=== PATIENT | female | born 1945 | race Caucasian/White ===

== ENCOUNTER → 2023-12-01 08:38 | Outpatient (REF) | payer MEDICARE, OTHER, SELFPAY ==
[2023-12-01 09:25] LABS: % Basophils 0.3 % (0-2); % Eosinophils 0.5 % (0-6); % Immature Granulocytes 0.8 % (0-0.5); % Lymphocytes 17.9 % (20.5-51.1); % Monocytes 5.6 % (1.7-9.3); % Neutrophils 74.9 % (42.2-75.2); Absolute Immature Granulocytes 0.1 10^3/uL (0-0.05); Absolute Lymphocytes 1.4 10^3/uL (1.2-3.4); Absolute Monocytes 0.4 10^3/uL (0.1-0.6); Absolute Neutrophils 5.9 10^3/uL (1.4-6.5); Hematocrit 47.2 % (37.0-47.0); Hemoglobin 15.5 g/dL (12.0-16.0); Mean Corp Hgb Conc. 32.8 g/dL (33.0-37.0); Mean Corpuscular Volume 97.3 fL (81.0-99.0); Nucleated Red Blood Cells % 0 %; Platelet Count 299 10^3/uL (130-400); Red Blood Cell Count 4.85 10^6/uL (4.20-5.40); Red Cell Dist. Width 12.5 % (11.5-14.5); White Blood Cell Count 7.8 10^3/uL (4.8-10.8)
[2023-12-01 10:35] LABS: Blood Urea Nitrogen 12 mg/dl (7-17); Calcium 10.2 mg/dl (8.4-10.2); Carbon Dioxide 26 mmol/L (22-30); Chloride 110 mmol/L (98-107); Glucose 112 mg/dl (70-99); Potassium 4.6 mmol/L (3.5-5.1); Sodium 143 mmol/L (135-145); eGFR > 60.00
== END ==
LOC: REG 08:38
PROVIDERS: ATTENDING PHYSICIAN Internal Medicine Rheumatology; FAMILY PHYSICIAN Internal Medicine
DX: M81.0 Age-related osteoporosis without current pathological fracture (principal); Z51.81 Encounter for therapeutic drug level monitoring
CPT/HCPCS: 36415; 80048; 85025

== ENCOUNTER 2023-12-20 18:36 | Inpatient (IN) | payer MEDICARE, OTHER, SELFPAY ==
[2023-12-20] VITALS (20 sets, daily range): BP systolic 84–138; BP diastolic 32–92; BMI 28.0; BMI 27.2
[2023-12-20 12:23] LABS: % Basophils 0.3 % (0-2); % Eosinophils 0.3 % (0-6); % Immature Granulocytes 0.9 % (0-0.5); % Lymphocytes 6.9 % (20.5-51.1); % Monocytes 7.6 % (1.7-9.3); Absolute Basophils 0.1 10^3/uL (0-0.2); Absolute Eosinophils 0.1 10^3/uL (0-0.7); Absolute Immature Granulocytes 0.1 10^3/uL (0-0.05); Absolute Monocytes 1.2 10^3/uL (0.1-0.6); Absolute Neutrophils 12.7 10^3/uL (1.4-6.5); Hematocrit 38.6 % (37.0-47.0); Hemoglobin 13.4 g/dL (12.0-16.0); Mean Corp Hgb Conc. 34.7 g/dL (33.0-37.0); Mean Corpuscular Hgb 32.1 pg (27.0-31.0); Mean Corpuscular Volume 92.3 fL (81.0-99.0); Mean Platelet Volume 10.1 fL (7.4-10.4); Nucleated Red Blood Cells % 0 %; Platelet Count 236 10^3/uL (130-400); Red Blood Cell Count 4.18 10^6/uL (4.20-5.40); Red Cell Dist. Width 12.8 % (11.5-14.5); White Blood Cell Count 15.2 10^3/uL (4.8-10.8)
[2023-12-20 12:38] LABS: ALT (SGPT) 92 U/L (0-35); AST (SGOT) 60 U/L (14-36); Albumin 3.1 g/dl (3.5-5.0); Alkaline Phosphatase 174 U/L (38-126); Blood Urea Nitrogen 27 mg/dl (7-17); Calcium 8.5 mg/dl (8.4-10.2); Carbon Dioxide 22 mmol/L (22-30); Chloride 102 mmol/L (98-107); Estimated Creatinine Clearance 43 ml/min; Glucose 118 mg/dl (70-99); Lipase 82 U/L (23-300); Potassium 3.4 mmol/L (3.5-5.1); Sodium 131 mmol/L (135-145); Total Bilirubin 0.8 mg/dl (0.2-1.3); Total Protein 5.8 g/dl (6.3-8.2); eGFR 52.08
[2023-12-20] MEDS: NSS 1000 IV ×3 (12:44→20:39)
[2023-12-20 14:13] LABS: Lactic Acid 0.5 mmol/L (0.7-2.0)
--- NOTE | 2023-12-20 15:11 | ED.GENMED ---
History of Present Illness
General
Chief Complaint: Abdominal Symptoms
Source: patient
Exam Limitations: none
Time Seen by Provider: 12/20/23 12:11
Nursing documentation reviewed up to this point in time: agreed with
Travel History
Have you had any contact with someone who has COVID-19?: No
Do you have any symptoms of coronavirus? Fever > 100 degrees, chills, cough, shortness of breath, sore throat, loss of taste or smell, muscle aches, or headache?: No
History of Present Illness
History of Present Illness:
pt i a 78 y/o F
has hd some issues with intermittent chronic diarrhea
about 2 mo ago had abx for sinus infetion
says she had some mild diarrhea then off and on, where she would have fatigue and a week r so of looser stool and nausea and recover
4 days ago she got worse with n/v/d
has had about 4-5 episodes larger volume nonbloody diarrhea and a few vomiting, last vomiting yesterday
severe nausea
no abd pain, fever
feeling very weak, sleeping a lot
no bloody vomit
pt has been confused, foggy, and very globally weak
Past History
Past History
ED Past Medical History: HTN
ED Past Surgical History: Appendectomy, , Orthopedic (Shoulder surgery), Tonsilectomy and Other (Cataract surgery)
Social History
Personal:
Living: with family
Employment: Employed
Review of Systems
Review of Systems
Allergies reviewed?: Yes
All Other Systems: Not applicable
Phy Exam
Physical Exam
Physical Exam:
GENERAL: Alert , in no apparent distress, seems a little cloudy
EYE: pupils equal and reactive
NECK: Supple
ENT: o/p clr, DRY MUCUS MEMBRANES
CARDIAC: Regular rate and rhythm .
LUNGS: Clear breath sounds bilaterally, no acute respiratory distress, no wheezes/rales/rhonchi
ABDOMEN: Soft, MILDLY DISTENDED UPPER ABD, NONTENDER no r/g, no cvat, normal bowel sounds
NEUROLOGICAL: Alert and oriented, no focal neuro deficits, mildly cloudy/foggy
SKIN: Warm and dry, skin intact.
MUSCULOSKELETAL: No edema, well perfused.
PSYCH: Normal and appropriate interaction.
Course
Orders/Labs/Results
Orders:
Orders
12/20/23 12:09
Complete Blood Count/With Diff Urgent
Comprehensive Metabolic Panel Urgent
Lipase Urgent
Magnesium Urgent
Comment: ADD ON
12/20/23 12:41
CT Abd/Pel (IV only)-DH only Urgent
Comment:
Reason For Exam: diarrhea, severe weakness
12/20/23 12:44
0.9% Sodium Chloride 1000 ml [Nss] 1,000 ml IV BOLUS
12/20/23 12:53
STOOL [C difficile Antigen & Toxins] Urgent
KAYLYN Source: Feces/Stool
Specimen Description:
Stool Culture Urgent
KAYLYN Source: Feces/Stool
Specimen Description:
12/20/23 12:54
0.9% Sodium Chloride 1000 ml [Nss] 1,000 ml IV BOLUS
12/20/23 12:55
Add On- LAB Urgent
Tests Added?: mmagnesium
12/20/23 13:42
Lactic Acid Q4H
Comment: CANCEL 2nd LACTIC ACID IF 1st LACTIC ACID IS LESS THAN 2
12/20/23 17:00
Lactic Acid Q4H
Comment: CANCEL 2nd LACTIC ACID IF 1st LACTIC ACID IS LESS THAN 2
12/20/23 17:21
Urinalysis Reflex To Culture Urgent
Date Specimen was Collected: 12/20/23
Time Specimen was Collected: 17:21
12/20/23 17:30
Potassium Chloride [KCl] 20 meq PO NOW STA
Abnormal Lab Results
12/20/23 12/20/23
12:09 13:42
WBC 15.2 H 10^3/uL
(4.8-10.8)
RBC 4.18 L 10^6/uL
(4.20-5.40)
MCH 32.1 H pg
(27.0-31.0)
Abs Immat Gran (auto) 0.1 H 10^3/uL
(0-0.05)
Absolute Neuts (auto) 12.7 H 10^3/uL
(1.4-6.5)
Absolute Lymphs (auto) 1.0 L 10^3/uL
(1.2-3.4)
Absolute Monos (auto) 1.2 H 10^3/uL
(0.1-0.6)
Immature Gran % 0.9 H %
(0-0.5)
Neutrophils % 84.0 H %
(42.2-75.2)
Lymphocytes % 6.9 L %
(20.5-51.1)
Sodium 131 L mmol/L
(135-145)
Potassium 3.4 L mmol/L
(3.5-5.1)
BUN 27 H mg/dl
(7-17)
Creatinine 1.1 H mg/dL
(0.6-1.0)
Glucose 118 H mg/dl
(70-99)
Lactic Acid 0.5 L mmol/L
(0.7-2.0)
AST 60 H U/L
(14-36)
ALT 92 H U/L
(0-35)
Alkaline Phosphatase 174 H U/L
(38-126)
Total Protein 5.8 L g/dl
(6.3-8.2)
Albumin 3.1 L g/dl
(3.5-5.0)
12/20/23 12:09
12/20/23 12:09
Vital Signs
Initial and Last Documented VS:
Initial Vital Signs
Temp Pulse Resp BP Pulse Ox
97.6 F 95 16 92/61 95
12/20/23 11:32 12/20/23 11:32 12/20/23 11:32 12/20/23 11:32 12/20/23 11:32
Last Documented Vital Signs
Temp Pulse Resp BP Pulse Ox
97.6 F 91 20 113/63 97
12/20/23 11:32 12/20/23 16:18 12/20/23 16:18 12/20/23 16:18 12/20/23 15:45
MDM/Problems Addressed
Differential Diagnosis Includes:
gastroetneritis, c diff, dehydration, sepsis
MDM/Problems Addressed:
cherelle thakur 78 y/o F with h/o htn, remote nic[place]; had abx 2 mo ago and has had episodes of nausea/diarrhea lasting a week or so and then resolving; never saw anyone for it; started n/v/d 3-4 days ago, watery diarrhea, severe nausea, sleeping all day;
very dry and hypotensive on arrival bp 80s, improved to 100s with 2 L, lactate normal, wbc 15 with shift, elevated lfts, ct shows possibly renal masses vs. pyelo (getting urine now but no urine symptoms) and also possible cbd diltation; with her gi
sxs and elevated lfts, should have gi consult, maybe MRCP and ivf overnight;
*Critical Care Note
Total Time (30-74mins, 75-104mins- exclusive of procedures): Not Applicable
ED Attending Note
-
Portions of this chart may have been created with voice recognition software.� Occasional wrong word or��sound alike� substitutions may have occurred due to the inherent limitations of voice recognition software.
Discharge Plan
Departure
Patient Disposition: Admit
Date of Disposition: 12/20/23
Time of Disposition: 17:10
Admit to: Med/Surg
Presentation/result/management discussed w/ accepting MD/DO: Hospitalist
Condition: Fair
Covid-19: Not Applicable
Discharge Problem:
Gastroenteritis, Dehydration
Prescriptions:
No Action
cyanocobalamin (vitamin B-12) 1,000 mcg Tablet
1,000 mcg PO DAILY
acetaminophen [Tylenol Extra Strength] 500 mg Tablet
1,000 mg PO QIDPRN PRN (Reason: mild pain)
calcium carbonate [Calcium 500] 500 mg calcium (1,250 mg) Tablet
500 mg PO DAILY
nabumetone 500 mg Tablet
500 mg PO BIDPRN PRN (Reason: mild pain)
duloxetine [Cymbalta] 60 mg Capsule,Delayed Release(Dr/Ec)
60 mg PO HS
amlodipine-benazepril 5-40 mg Capsule
1 cap PO HS
cholecalciferol (vitamin D3) [Vitamin D3] 25 mcg (1,000 unit) Tablet
25 mcg PO QPM
Referrals:
Edvin Pitts MD [Family Provider] -
Interventions
Interventions:
*Risk Screen - Suicide Last Done: 12/20/23 12:21
*General Assessment Last Done: 12/20/23 12:21
*Neglect/Abuse Screening Last Done: 12/20/23 12:21
ED- Fall Risk Assessment Last Done: 12/20/23 12:22
*ED COVID-19 Vaccine History Last Done: 12/20/23 12:21
KL-Tzaajl-Tlcyddsvlt Assessment Last Done: 12/20/23 12:22
Discharge Date and Time
Print Language: TURKMEN
[2023-12-20 15:55] LABS: Magnesium 1.9 mg/dl (1.6-2.3)
[2023-12-20 17:36] LABS: Urine Albumin Negative (Neg - Trace); Urine Bilirubin Negative (Negative); Urine Character Clear (Clear); Urine Color Straw; Urine Glucose Negative (Negative); Urine Ketone Negative (Negative); Urine Leukocyte 2+ (Negative); Urine Nitrite Negative (Negative); Urine Occult Blood Negative (Negative); Urine Specific Gravity 1.005 (<1.030); Urine Urobilinogen Negative (Neg - 1+); Urine pH 6.5 (5.0-9.0)
[2023-12-20] MEDS: KCL 20 MEQ PO (17:37)
--- NOTE | 2023-12-20 17:40 | HPS.HSE ---
Family Physician
-
Family Physician: Marc Ptits
Chief Complaint
-
Nausea vomiting diarrhea
History of Present Illness
HPI: 78 y/o F PMH HTN, p/w N/V/D which appear to be acute on subacute.
Patient stated that she has chronic soft stool, but first experienced explosive diarrhea about one months ago. She had just recovered from was sounded like an URI at that time and she did receive antibiotic (for sinus infection) back then.
She returned to baseline, but then experienced nausea, vomiting and now again with watery diarrhea about 4 to 5 days ago.
She also complained of extreme fatigue and weakness.
She denies to fever, abdominal pain, change urination/dysuria/urinary frequency, chest pain, shortness of breath etc.
Medical History
Past Medical History
Past Medical History: Reports HTN
Additional Past Medical History:
Fibromyalgia
Left perforated eardrum status post plasma patch repair
Past Surgical History: Reports Cholecystectomy and Other
Additional Past Surgical History:
Left perforated eardrum status post plasma patch repair
Social History
Tobacco: Non-smoker
Alcohol: None
Personal:
Living: With Family
Family History
Family History: Not pertinent
Allergies / Home Medications
Allergies reflects when Allergies were last updated in [facility].
Home Medications with original date entered in [facility]
Allergy/Medication List:
Allergies
Allergy/AdvReac Type Severity Reaction Status Date / Time
alendronate sodium Allergy debilitating Verified 12/20/23 11:37
[From Fosamax] joint pain
oxycodone [Oxycodone] Allergy Pt states Verified 12/20/23 11:37
if taken
with
antiemetic
she is
able to
tolerate.
Home Medications
acetaminophen 500 mg tablet (Tylenol Extra Strength) 1,000 mg PO QIDPRN PRN mild pain 12/20/23
amlodipine 5 mg-benazepril 40 mg capsule 1 cap PO HS 12/20/23
calcium carbonate 500 mg PO DAILY 12/20/23
cholecalciferol (vitamin D3) 25 mcg (1,000 unit) tablet (Vitamin D3) 25 mcg PO QPM 12/20/23
cyanocobalamin (vitamin B-12) 1,000 mcg tablet 1,000 mcg PO DAILY 12/20/23
duloxetine 60 mg capsule,delayed release (Cymbalta) 60 mg PO HS 12/20/23
nabumetone 500 mg tablet 500 mg PO BIDPRN PRN mild pain 12/20/23
Review of Systems
-
Abdomen/GI: Reports See HPI, Nausea, Vomiting and Diarrhea; Denies Abdominal Pain
: Denies Dysuria, Frequency or Flank Pain
Physical Exam
Vital Signs
Vital Signs
Temp Pulse Resp BP Pulse Ox
36.4 C 91 20 113/63 97
12/20/23 11:32 12/20/23 16:18 12/20/23 16:18 12/20/23 16:18 12/20/23 15:45
Physical Exam
General: Well Developed, Well Nourished, No Apparent Distress, Comfortable and Conversant
HEENT: NormoCephalic, Moist mucous membranes and Atraumatic
Respiratory: Clear and Non Labored Respirations; No Accessory Resp Muscle Use
Cardiac: S1/S2 and Regular Rhythm; No Murmur or Rub
GI: Soft, Non Tender, Non Distended and Normal Bowel Sounds; No Organomegaly
Rectal: Deferred by Provider
Musculoskeletal: No Clubbing, No Cyanosis and No Edema
Skin: No Rash
Neuro: Awake
Psych: Calm and Intact Judgment/Insight
Laboratory Results
-
12/20/23 12:09
12/20/23 12:09
Laboratory Results
Lactic Acid 0.5 mmol/L (0.7-2.0) L 12/20/23 13:42
Total Bilirubin 0.8 mg/dl (0.2-1.3) 12/20/23 12:09
AST 60 U/L (14-36) H 12/20/23 12:09
ALT 92 U/L (0-35) H 12/20/23 12:09
Alkaline Phosphatase 174 U/L (38-126) H 12/20/23 12:09
Lipase 82 U/L (23-300) 12/20/23 12:09
Data Reviewed
-
CT Scan: Report Reviewed by me, Discussed with Patient and Discussed with Family
Lab Data: Labs Reviewed by me
Impression/Plan
-
HPI: 78 y/o F PMH HTN, p/w N/V/D which appear to be acute on subacute.
Patient stated that she has chronic soft stool, but first experienced explosive diarrhea about one months ago. She had just recovered from was sounded like an URI at that time and she did receive antibiotic (for sinus infection) back then.
She returned to baseline, but then experienced nausea, vomiting and now again with watery diarrhea about 4 to 5 days ago.
She also complained of extreme fatigue and weakness.
She denies to fever, abdominal pain, change urination/dysuria/urinary frequency, chest pain, shortness of breath etc.
CT AP:
Multiple bilateral low-attenuation renal masses. Multifocal pyelonephritis is felt unlikely, though not entirely excluded especially if there were symptoms and clinical findings of urinary tract infection. Otherwise, consider multiple, bilateral
renal cell carcinomas, and follow-up MRI characterization if indicated.
No obstructive uropathy.
No adenopathy.
Prior cholecystectomy. Distention of the common hepatic duct and intrahepatic bile ducts with normal caliber common bile duct. Recommend correlation with liver function tests. If indicated, further evaluation/follow-up MRCP may be considered.
Minor sigmoid diverticulosis without acute diverticulitis.
A/P:
# acute to subacute diarrhea, watery in nature; suspect due to acute viral gastroenteritis
Antibiotic exposure was 2 months ago for sinus infection, felt less likely to be related to antibiotic
Check stool culture, C. difficile, norovirus
Check blood culture
Hold antibiotic for now
Zofran as needed for nausea
# Prerenal OSCAR with clinical dehydration
# Hypotension present on admission due to above
Received 2 L NSS, BP and MS improved
Continue maintenance IV fluid
Trend serum creatinine, 1.1 on admission, baseline at 0.6
# Transaminitis, suspect reactive
Continue to monitor LFT
# Bilateral renal masses noted on CT abdomen pelvis, incidental finding
UA sent, follow-up
[place] less likely due to UTI given patient denies to any urinary symptoms and no flank pain
Recommend urology outpatient follow-up and eval
# Distention of common hepatic duct and intrahepatic bile duct with normal common bile duct
Trend LFT as stated above
Could consider GI outpatient
DVT prophylaxis: Heparin subcu
Full code
[2023-12-20 17:49] LABS: Urine Bacteria Moderate (Negative); Urine Red Blood Cell 0-2 /HPF (0-2); Urine Urothelial Cell 0-2 /LPF (FEW); Urine White Cell 26-30 /HPF (0-5)
--- NOTE | 2023-12-20 19:30 | PTCARENOTE ---
Received pt from ED stretcher. Pt ambulated to bed independently. Spouse at bedside. AAOx3. Pt complained of 2/10 chronic neck and shoulder pain, scheduled pain medication provided, see MAR. Pt informed this RN she has fallen in the past 3 months,
pt stated 'I tripped and kneeled down onto my left knee two weeks ago'. Pt instructed to ring when need to ambulate to bathroom. Pt rings appropriately. Assessed and oriented to room. Pt verbalized understanding of call gregory. Call gregory within close
reach. Will continue to monitor.
[2023-12-20 20:22] LABS: Lactic Acid 1.7 mmol/L (0.7-2.0)
[2023-12-20] MEDS: HEPARIN 5000 UNITS SC (20:41)
[2023-12-20] MEDS: TYLENOL 650 MG PO (20:42)
[2023-12-20] MEDS: CYMBALTA DELAYED RELEASE 60 MG PO (22:02)
[2023-12-20] MEDS: TYLENOL PO (23:17)
[2023-12-21] MEDS: TYLENOL 650 MG PO ×4 (04:36→23:44)
[2023-12-21 06:22] LABS: % Basophils 0.2 % (0-2); % Eosinophils 0.3 % (0-6); % Immature Granulocytes 0.9 % (0-0.5); % Lymphocytes 7.4 % (20.5-51.1); % Monocytes 7.5 % (1.7-9.3); % Neutrophils 83.7 % (42.2-75.2); Absolute Immature Granulocytes 0.1 10^3/uL (0-0.05); Absolute Lymphocytes 0.9 10^3/uL (1.2-3.4); Absolute Monocytes 0.9 10^3/uL (0.1-0.6); Absolute Neutrophils 10.6 10^3/uL (1.4-6.5); Hematocrit 35.6 % (37.0-47.0); Mean Corp Hgb Conc. 33.7 g/dL (33.0-37.0); Mean Corpuscular Hgb 32.3 pg (27.0-31.0); Mean Platelet Volume 10.3 fL (7.4-10.4); Nucleated Red Blood Cells % 0 %; Platelet Count 225 10^3/uL (130-400); Red Blood Cell Count 3.71 10^6/uL (4.20-5.40); Red Cell Dist. Width 12.9 % (11.5-14.5); White Blood Cell Count 12.6 10^3/uL (4.8-10.8)
[2023-12-21 07:00] VITALS: BP 110/56
[2023-12-21 07:03] LABS: ALT (SGPT) 62 U/L (0-35); AST (SGOT) 43 U/L (14-36); Albumin 2.6 g/dl (3.5-5.0); Alkaline Phosphatase 162 U/L (38-126); Blood Urea Nitrogen 16 mg/dl (7-17); Calcium 8.5 mg/dl (8.4-10.2); Carbon Dioxide 21 mmol/L (22-30); Chloride 113 mmol/L (98-107); Estimated Creatinine Clearance 54 ml/min; Glucose 118 mg/dl (70-99); Magnesium 2.1 mg/dl (1.6-2.3); Potassium 3.8 mmol/L (3.5-5.1); Sodium 142 mmol/L (135-145); Total Bilirubin 0.4 mg/dl (0.2-1.3); eGFR > 60.00
[2023-12-21] MEDS: HEPARIN 5000 UNITS SC ×2 (08:44→20:51)
[2023-12-21] MEDS: TYLENOL PO ×2 (08:45→14:23)
[2023-12-21] MEDS: NSS 1000 IV (08:47)
--- NOTE | 2023-12-21 11:08 | W.PN.HOSP.TC ---
Today's Communication/Plan
-
see A/P
Assessment / Plan
Assessment / Plan
HPI: 78 y/o F PMH HTN, p/w N/V/D which appear to be acute on subacute.
Patient stated that she has chronic soft stool, but first experienced explosive diarrhea about one months ago. She had just recovered from was sounded like an URI at that time and she did receive antibiotic (for sinus infection) back then.
She returned to baseline, but then experienced nausea, vomiting and now again with watery diarrhea about 4 to 5 days ago.
She also complained of extreme fatigue and weakness.
She denies to fever, abdominal pain, change urination/dysuria/urinary frequency, chest pain, shortness of breath etc.
CT AP:
Multiple bilateral low-attenuation renal masses. Multifocal pyelonephritis is felt unlikely, though not entirely excluded especially if there were symptoms and clinical findings of urinary tract infection. Otherwise, consider multiple, bilateral
renal cell carcinomas, and follow-up MRI characterization if indicated.
No obstructive uropathy.
No adenopathy.
Prior cholecystectomy. Distention of the common hepatic duct and intrahepatic bile ducts with normal caliber common bile duct. Recommend correlation with liver function tests. If indicated, further evaluation/follow-up MRCP may be considered.
Minor sigmoid diverticulosis without acute diverticulitis.
A/P:
# acute to subacute diarrhea, watery in nature; suspect due to acute viral gastroenteritis
Antibiotic exposure was 2 months ago for sinus infection, felt less likely to be related to antibiotic
Follow stool culture, C. difficile
norovirus is negative
Follow blood culture
Hold antibiotic for now
Zofran as needed for nausea
# Prerenal OSCAR with clinical dehydration, resolved
# Hypotension present on admission due to above, resolved
s/p IVF boluses, observe off additional maintenance IVF
# Transaminitis, suspect reactive, improving
Continue to monitor LFT
# Asymptomatic bacteruria
pt denies to urinary symptoms
Follow urine Cx that was sent from ED
Would hold Abx for now
# Bilateral renal masses noted on CT abdomen pelvis, incidental finding
[place] less likely due to UTI given patient denies to any urinary symptoms and no flank pain
Recommend urology outpatient follow-up and renata cruz has been informed of this
# Distention of common hepatic duct and intrahepatic bile duct with normal common bile duct
Trend LFT as stated above
Could consider GI outpatient
DVT prophylaxis: Heparin subcu
Full code
DW at bedside
Anticipated Discharge: 24 - 48 hours
Subjective/Interval History
-
Date of Service: December 21, 2023
Objective Data
-
Labs:
Laboratory Results
12/21/23
05:47
WBC 12.6 H
Hgb 12.0
Hct 35.6 L
Plt Count 225
Sodium 142 D
Potassium 3.8
Chloride 113 H
Carbon Dioxide 21 L
BUN 16
Creatinine 0.9
Glucose 118 H
Calcium 8.5
Total Bilirubin 0.4
AST 43 H
ALT 62 H
Alkaline Phosphatase 162 H
Vital Signs:
Vital Signs
Temp Pulse Resp BP Pulse Ox
36.6 C 89 16 110/56 98
12/21/23 07:00 12/21/23 07:00 12/21/23 07:00 12/21/23 07:00 12/21/23 07:00
I&O
12/20/23 12/21/23 12/22/23
06:59 06:59 06:59
Intake Total 1200 / 1200
Balance 1200 / 1200
Review of Systems
-
Abdomen/GI: Reports Diarrhea (seem to have improved )
Physical Exam
-
General: Well Developed, Well Nourished, No Apparent Distress, Comfortable and Conversant; Negative Respiratory Distress
HEENT: Normocephalic, Atraumatic, Nose Appears Normal and Ears Appear Normal; Negative Oxygen
Respiratory: Clear to Auscultation and Non Labored Respirations; Negative Accessory Resp Muscle Use
Cardiac: Regular Rhythm and S1/S2
GI: Soft, Nontender, Nondistended and Normal Bowel Sounds
Skin: Warm and Dry
Neuro: Awake and Alert
Psych: Calm and Intact Judgement/Insight
Data Reviewed
-
CT Scan: Report Reviewed by me
Labs: Labs Reviewed by me
--- NOTE | 2023-12-21 12:23 | CM ---
Met with pt and her at bedside
pt lives with her in a 2 story home
Describes self as independent. assists around home
Has ride at d/c
DME - cane, CPAP
SNF/HH - no past hx
PCP - Dr Marc Higgins
Pharm - [facility]
Plan - anticipate home no needs vs with VN
[2023-12-21 15:00] VITALS: BP 148/83
[2023-12-21] MEDS: STERILE WATER FOR INJECTION 10 ML IV (20:53)
[2023-12-21] MEDS: ROCEPHIN 1000 MG IV (20:54)
[2023-12-21] MEDS: FLUSH (NSS) 2 FLUSH IV (20:55)
[2023-12-21] MEDS: CYMBALTA DELAYED RELEASE 60 MG PO (20:56)
[2023-12-21 23:00] VITALS: BP 107/72
[2023-12-22] MEDS: TYLENOL PO (04:00)
[2023-12-22 07:00] VITALS: BP 126/65
[2023-12-22 08:24] LABS: % Basophils 0.4 % (0-2); % Eosinophils 0.7 % (0-6); % Immature Granulocytes 0.9 % (0-0.5); % Lymphocytes 10.9 % (20.5-51.1); % Monocytes 7.2 % (1.7-9.3); % Neutrophils 79.9 % (42.2-75.2); Absolute Eosinophils 0.1 10^3/uL (0-0.7); Absolute Immature Granulocytes 0.1 10^3/uL (0-0.05); Absolute Lymphocytes 1.2 10^3/uL (1.2-3.4); Absolute Monocytes 0.8 10^3/uL (0.1-0.6); Absolute Neutrophils 8.8 10^3/uL (1.4-6.5); Hematocrit 39.6 % (37.0-47.0); Hemoglobin 13.2 g/dL (12.0-16.0); Mean Corp Hgb Conc. 33.3 g/dL (33.0-37.0); Mean Corpuscular Hgb 32.1 pg (27.0-31.0); Mean Corpuscular Volume 96.4 fL (81.0-99.0); Mean Platelet Volume 10.1 fL (7.4-10.4); Nucleated Red Blood Cells % 0 %; Platelet Count 248 10^3/uL (130-400); Red Blood Cell Count 4.11 10^6/uL (4.20-5.40); Red Cell Dist. Width 13.1 % (11.5-14.5)
[2023-12-22] MEDS: HEPARIN 5000 UNITS SC (08:53)
[2023-12-22] MEDS: TYLENOL 650 MG PO ×4 (08:58→21:02)
[2023-12-22 09:16] LABS: ALT (SGPT) 70 U/L (0-35); AST (SGOT) 39 U/L (14-36); Alkaline Phosphatase 171 U/L (38-126); Blood Urea Nitrogen 8 mg/dl (7-17); Carbon Dioxide 25 mmol/L (22-30); Chloride 109 mmol/L (98-107); Estimated Creatinine Clearance 69 ml/min; Glucose 108 mg/dl (70-99); Magnesium 1.8 mg/dl (1.6-2.3); Potassium 3.5 mmol/L (3.5-5.1); Sodium 142 mmol/L (135-145); Total Bilirubin 0.3 mg/dl (0.2-1.3); Total Protein 5.6 g/dl (6.3-8.2); eGFR > 60.00
--- NOTE | 2023-12-22 11:26 | W.PN.HOSP.TC ---
Today's Communication/Plan
-
see A/P
Assessment / Plan
Assessment / Plan
HPI: 78 y/o F PMH HTN, p/w N/V/D which appear to be acute on subacute.
Patient stated that she has chronic soft stool, but first experienced explosive diarrhea about one months ago. She had just recovered from was sounded like an URI at that time and she did receive antibiotic (for sinus infection) back then.
She returned to baseline, but then experienced nausea, vomiting and now again with watery diarrhea about 4 to 5 days ago.
She also complained of extreme fatigue and weakness.
She denies to fever, abdominal pain, change urination/dysuria/urinary frequency, chest pain, shortness of breath etc.
CT AP:
Multiple bilateral low-attenuation renal masses. Multifocal pyelonephritis is felt unlikely, though not entirely excluded especially if there were symptoms and clinical findings of urinary tract infection. Otherwise, consider multiple, bilateral
renal cell carcinomas, and follow-up MRI characterization if indicated.
No obstructive uropathy.
No adenopathy.
Prior cholecystectomy. Distention of the common hepatic duct and intrahepatic bile ducts with normal caliber common bile duct. Recommend correlation with liver function tests. If indicated, further evaluation/follow-up MRCP may be considered.
Minor sigmoid diverticulosis without acute diverticulitis.
A/P:
# acute to subacute diarrhea, watery in nature; suspect due to acute viral gastroenteritis
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
C. difficile neg, norovirus negative
Follow stool culture
Zofran as needed for nausea
Pt states that she is on colestipol ARCHAEOLOGIST (prescribed by GI) for diarrhea, start cholestyramine today
GI CS
# sepsis/bacteremia POA
# Possible UTI with E coli although pt denies to symptoms
blood culture from admission positive for GNR, follow blood culture until clearance
started ceftriaxone
# Prerenal OSCAR with clinical dehydration, resolved
# Hypotension present on admission due to above, resolved
s/p IVF boluses, observe off additional maintenance IVF
# Transaminitis, suspect reactive, improving
Continue to monitor LFT
# Multiple Bilateral renal masses noted on CT abdomen pelvis, incidental finding
Recommend urology outpatient follow-up and eval, pt has been informed of this
# Distention of common hepatic duct and intrahepatic bile duct with normal common bile duct
This could be related to prior cholecystectomy
Trend LFT, improving
GI eval per family request
DVT prophylaxis: lovenox SQ
Full code
DW and daughter at bedside
total time spent 51 min
Anticipated Discharge: > 48 hours
Subjective/Interval History
-
Date of Service: December 22, 2023
Objective Data
-
Labs:
Laboratory Results
12/22/23
08:00
WBC 11.0 H
Hgb 13.2
Hct 39.6
Plt Count 248
Sodium 142
Potassium 3.5
Chloride 109 H
Carbon Dioxide 25
BUN 8
Creatinine 0.7
Glucose 108 H
Calcium 9.0
Total Bilirubin 0.3
AST 39 H
ALT 70 H
Alkaline Phosphatase 171 H
Vital Signs:
Vital Signs
Temp Pulse Resp BP Pulse Ox
36.4 C 84 17 126/65 99
12/22/23 07:00 12/22/23 07:00 12/22/23 07:00 12/22/23 07:00 12/22/23 07:00
I&O
12/21/23 12/22/23 12/23/23
06:59 06:59 06:59
Intake Total 1200 / 1200 240 / 240 0 / 0
Balance 1200 / 1200 240 / 240 0 / 0
Review of Systems
-
Abdomen/GI: Reports Diarrhea (seem to have improved )
Physical Exam
-
General: Well Developed, Well Nourished, No Apparent Distress, Comfortable and Conversant; Negative Respiratory Distress
HEENT: Normocephalic, Atraumatic, Nose Appears Normal and Ears Appear Normal; Negative Oxygen
Respiratory: Clear to Auscultation and Non Labored Respirations; Negative Accessory Resp Muscle Use
Cardiac: Regular Rhythm and S1/S2
GI: Soft, Nontender, Nondistended and Normal Bowel Sounds
Skin: Warm and Dry
Neuro: Awake and Alert
Psych: Calm and Intact Judgement/Insight
Data Reviewed
-
CT Scan: Report Reviewed by me
Labs: Labs Reviewed by me
[2023-12-22 11:33] VITALS: BP 152/80; PULSE 88; O2SAT 99
[2023-12-22 11:50] VITALS: BP 152/80; PULSE 89; O2SAT 99
[2023-12-22 13:47] VITALS: BP 152/80; PULSE 89; O2SAT 99
[2023-12-22 15:00] VITALS: BP 153/79
[2023-12-22] MEDS: LOVENOX 40 MG SC (16:59)
--- NOTE | 2023-12-22 17:27 | CON.GI ---
Consultation
-
Date/Time Consultation Requested: 12/22/2023, 11:40am
Date/Time Consultation Performed: 12/22/2023, 530pm
Requesting Provider: Dr. Lopez
Performing Provider: Dr. Hernandez
Reason for Consultation: diarrhea
Medical History
Chief Complaint / HPI
Chief Complaint: diarrhea
History of Present Illness:
78 yo F with intermittent diarrhea with worsening of diarrhea with n/v found in ER to be hypotensive with leukocytosis. Found to have mild LFT abnormalities but normal bilirubin. CT done as below.
On d/w pt had n/v, fatigue, upset stomach so stopped colestipol. That is when diarrhea started - 3 loose explosive BM a day, + nocturnal BM, + incontinence, + urgency, no blood.
No recent travel or sick contacts.
Also found to have UTI + e coli and blood culture + with GNB.
Has chronic diarrhea as well follows with Dr. 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 Per patient would take 3 tabs a day with flare, 1 tab a day normally.
Had antibiotics 2 months ago for sinus infection.
CT 12/19: Multiple bilateral low-attenuation renal masses. Multifocal pyelonephritis is felt unlikely, though not entirely excluded especially if there were symptoms and clinical findings of urinary tract infection. Otherwise, consider multiple,
bilateral renal cell carcinomas, and follow-up MRI characterization if indicated.
No obstructive uropathy.
No adenopathy.
Prior cholecystectomy. Distention of the common hepatic duct and intrahepatic bile ducts with normal caliber common bile duct. Recommend correlation with liver function tests. If indicated, further evaluation/follow-up MRCP may be considered.
Minor sigmoid diverticulosis without acute diverticulitis.
Colonoscopy 2018 Dr.Hale larios in sigmoid otherwise normal no biopsies taken.
Past Medical History
Past Medical History: HTN
Past Surgical History: Appendectomy, Cholecystectomy, , Orthopedic (shoulder surgery), Tonsilectomy and Other (cataract)
Social History
Tobacco: Non-Smoker
Alcohol: None
Drug: None
Family History
Family History: Reviewed & Not Pertinent
Allergies / Home Medications
Allergy/AdvReac Type Severity Reaction Status Date / Time
alendronate sodium Allergy debilitating Verified 12/20/23 11:37
[From Fosamax] joint pain
oxycodone [Oxycodone] Allergy Pt states Verified 12/20/23 11:37
if taken
with
antiemetic
she is
able to
tolerate.
�Medication �Instructions �Recorded
acetaminophen 500 mg tablet 1,000 mg PO QIDPRN PRN mild pain 12/20/23
(Tylenol Extra Strength)
amlodipine 5 mg-benazepril 40 mg 1 cap PO HS Blood Pressure 12/20/23
capsule
calcium carbonate 500 mg PO DAILY Supplement 12/20/23
cholecalciferol (vitamin D3) 25 25 mcg PO QPM Supplement 12/20/23
mcg (1,000 unit) tablet (Vitamin
D3)
cyanocobalamin (vitamin B-12) 1,000 mcg PO DAILY Supplement 12/20/23
1,000 mcg tablet
duloxetine 60 mg capsule,delayed 60 mg PO HS Depression 12/20/23
release (Cymbalta)
nabumetone 500 mg tablet 500 mg PO BIDPRN PRN mild pain 12/20/23
Review of Systems
-
All other systems: A 12 pt ROS was Negative except as stated above in HPI
Vital Signs
Temp Pulse Resp BP Pulse Ox
97.9 F 83 18 153/79 98
12/22/23 15:00 12/22/23 15:00 12/22/23 15:00 12/22/23 15:00 12/22/23 15:00
Physical Exam
Exam
General: Well Developed
HEENT: Normocephalic
Respiratory: Clear
Cardiac: S1/S2
GI: Non Tender and Non Distended
Musculoskeletal: No Clubbing
Skin: Warm
Neuro: AO x 3
Psych: Calm
Results
WBC 11.0 10^3/uL (4.8-10.8) H 12/22/23 08:00
Hgb 13.2 g/dL (12.0-16.0) 12/22/23 08:00
Hct 39.6 % (37.0-47.0) 12/22/23 08:00
MCV 96.4 fL (81.0-99.0) 12/22/23 08:00
Plt Count 248 10^3/uL (130-400) 12/22/23 08:00
Absolute Neuts (auto) 8.8 10^3/uL (1.4-6.5) H 12/22/23 08:00
Sodium 142 mmol/L (135-145) 12/22/23 08:00
Potassium 3.5 mmol/L (3.5-5.1) 12/22/23 08:00
Chloride 109 mmol/L (98-107) H 12/22/23 08:00
Carbon Dioxide 25 mmol/L (22-30) 12/22/23 08:00
BUN 8 mg/dl (7-17) 12/22/23 08:00
Creatinine 0.7 mg/dL (0.6-1.0) 12/22/23 08:00
Calcium 9.0 mg/dl (8.4-10.2) 12/22/23 08:00
Total Bilirubin 0.3 mg/dl (0.2-1.3) 12/22/23 08:00
AST 39 U/L (14-36) H 12/22/23 08:00
ALT 70 U/L (0-35) H 12/22/23 08:00
Alkaline Phosphatase 171 U/L (38-126) H 12/22/23 08:00
Lipase 82 U/L (23-300) 12/20/23 12:09
Diagnostic Image Results:
Prior GI Procedures:
EGD:
Colonoscopy:
Assessment / Plan
-
78 yo F pmh as above here with n/v, fatigue, diarrhea.
Diarrhea either infectious in etiology or due to holding colestipol. Suspect elevated LFTs 2/2 infection. Also with UTI and + blood cultures I suspect related to UTI.
Recommendations:
- Stool studies negative for norovirus, CDI, stool culture pending
- Start questran tonight
- Abx per primary team
- I stopped all meds for constipation given diarrhea
- Distension of common hepatic duct and intrahepatic bile ducts with normal CBD - recommend outpatient MRI/MRCP vs US, bilirubin normal, no RUQ pain
- Needs outpatient MRI for renal lesions as well.
- Recommend outpatient cscope needs biopsies of colon last colon 2017 Dr. Mariano recommended repeat 5 years d/w patient today
- Repeat LFTs after acute episode see if resolves
- Will need follow up with me outpatient
-
-
Thank you for consultation and allowing me to participate in the patient's care. Please call the guest relations coordinator GI physician during the after hours with any questions or concerns.
[2023-12-22] MEDS: KCL 40 MEQ PO (17:37)
[2023-12-22] MEDS: QUESTRAN LIGHT/PREVALITE 4 GRAMS PO (18:34)
[2023-12-22] MEDS: STERILE WATER FOR INJECTION 10 ML IV (21:02)
[2023-12-22] MEDS: ROCEPHIN 1000 MG IV (21:03)
[2023-12-22] MEDS: CYMBALTA DELAYED RELEASE 60 MG PO (21:03)
[2023-12-22] MEDS: LOTREL 1 CAPSULE PO (21:03)
[2023-12-22 23:00] VITALS: BP 139/73
[2023-12-23] MEDS: TYLENOL PO ×3 (00:45→12:49)
[2023-12-23 07:00] VITALS: BP 143/56
[2023-12-23 07:25] LABS: % Basophils 0.4 % (0-2); % Eosinophils 0.8 % (0-6); % Immature Granulocytes 1.9 % (0-0.5); % Lymphocytes 12.4 % (20.5-51.1); % Monocytes 6.2 % (1.7-9.3); % Neutrophils 78.3 % (42.2-75.2); Absolute Eosinophils 0.1 10^3/uL (0-0.7); Absolute Immature Granulocytes 0.2 10^3/uL (0-0.05); Absolute Lymphocytes 1.2 10^3/uL (1.2-3.4); Absolute Monocytes 0.6 10^3/uL (0.1-0.6); Absolute Neutrophils 7.9 10^3/uL (1.4-6.5); Hematocrit 37.9 % (37.0-47.0); Hemoglobin 12.8 g/dL (12.0-16.0); Mean Corp Hgb Conc. 33.8 g/dL (33.0-37.0); Mean Corpuscular Hgb 32.3 pg (27.0-31.0); Mean Corpuscular Volume 95.7 fL (81.0-99.0); Mean Platelet Volume 10.3 fL (7.4-10.4); Nucleated Red Blood Cells % 0 %; Platelet Count 270 10^3/uL (130-400); Red Blood Cell Count 3.96 10^6/uL (4.20-5.40); Red Cell Dist. Width 12.9 % (11.5-14.5)
[2023-12-23 08:02] LABS: ALT (SGPT) 57 U/L (0-35); AST (SGOT) 25 U/L (14-36); Albumin 2.8 g/dl (3.5-5.0); Alkaline Phosphatase 159 U/L (38-126); Blood Urea Nitrogen 8 mg/dl (7-17); Carbon Dioxide 27 mmol/L (22-30); Chloride 113 mmol/L (98-107); Estimated Creatinine Clearance 69 ml/min; Glucose 105 mg/dl (70-99); Magnesium 1.7 mg/dl (1.6-2.3); Potassium 3.9 mmol/L (3.5-5.1); Sodium 144 mmol/L (135-145); Total Bilirubin 0.3 mg/dl (0.2-1.3); Total Protein 5.4 g/dl (6.3-8.2); eGFR > 60.00
[2023-12-23] MEDS: QUESTRAN LIGHT/PREVALITE 4 GRAMS PO ×2 (09:59→14:34)
[2023-12-23] MEDS: TYLENOL 650 MG PO ×2 (09:59→14:33)
--- NOTE | 2023-12-23 12:55 | W.PN.GI.CBS2 ---
Addendum entered and electronically signed by Familia Hernandez MD 12/23/23 13:48:
Dr. Lopez sent me a msg she is discharging patient today.
Recommend she goes back on colestipol (we do not have in hospital pharmacy) instead of questran.
Original Note:
Today's Communication / Plan
-
increase questran
Assessment / Plan
-
78 yo F pmh as above here with n/v, fatigue, diarrhea.
Diarrhea either infectious in etiology or due to holding colestipol. Suspect elevated LFTs 2/2 infection. Also with UTI and + blood cultures with E.coli.
Recommendations:
- Stool studies negative for norovirus, CDI, stool culture negative so far pending shiga toxin
- Reviewed low residue diet
- Increase questran to tid
- Abx per primary team
- Distension of common hepatic duct and intrahepatic bile ducts with normal CBD - recommend outpatient MRI/MRCP vs US, bilirubin normal, no RUQ pain - I sent msg to office to work on auth for this as outpatient
- Needs outpatient MRI for renal lesions as well - d/w pt daughter will reach out to PCP.
- Recommend outpatient cscope needs biopsies of colon last colon 2017 Dr. Mariano recommended repeat 5 years d/w patient previously
- Repeat LFTs after acute episode see if resolves
- Will need follow up with me outpatient
Subjective
Subjective
Date of Service: December 23, 2023
having ongoing diarrhea
Objective
Data Reviewed
Laboratory Data:
Laboratory Results
12/23/23 06:13
12/23/23 06:13
Laboratory Results
Magnesium 1.7 mg/dl (1.6-2.3) 12/23/23 06:13
Total Bilirubin 0.3 mg/dl (0.2-1.3) 12/23/23 06:13
AST 25 U/L (14-36) 12/23/23 06:13
ALT 57 U/L (0-35) H 12/23/23 06:13
Alkaline Phosphatase 159 U/L (38-126) H 12/23/23 06:13
Lipase 82 U/L (23-300) 12/20/23 12:09
Vital Signs and I&O:
Vital Signs
Temp Pulse Resp BP Pulse Ox
98.6 F 84 18 143/56 100
12/23/23 07:00 12/23/23 07:00 12/23/23 07:00 12/23/23 07:00 12/23/23 07:00
I&O
12/22/23 12/23/23 12/24/23
06:59 06:59 06:59
Intake Total 240 / 240 1140 / 1140 960 / 960
Balance 240 / 240 1140 / 1140 960 / 960
Physical Exam
Physical Exam
GI: Non Distended and Non Tender
--- NOTE | 2023-12-23 13:22 | W.PN.HOSP.TC ---
Addendum entered and electronically signed by Marylu Lopez MD 12/23/23 13:57:
d/w GI, recc colestipol 1 g BID instead of current Questran
Colestipol sent to pharmacy
DC RN
total DC time 40 min
Original Note:
Today's Communication/Plan
-
see A/P
Assessment / Plan
Assessment / Plan
HPI: 78 y/o F PMH HTN, p/w N/V/D which appear to be acute on subacute.
Patient stated that she has chronic soft stool, but first experienced explosive diarrhea about one months ago. She had just recovered from was sounded like an URI at that time and she did receive antibiotic (for sinus infection) back then.
She returned to baseline, but then experienced nausea, vomiting and now again with watery diarrhea about 4 to 5 days ago.
She also complained of extreme fatigue and weakness.
She denies to fever, abdominal pain, change urination/dysuria/urinary frequency, chest pain, shortness of breath etc.
CT AP:
Multiple bilateral low-attenuation renal masses. Multifocal pyelonephritis is felt unlikely, though not entirely excluded especially if there were symptoms and clinical findings of urinary tract infection. Otherwise, consider multiple, bilateral
renal cell carcinomas, and follow-up MRI characterization if indicated.
No obstructive uropathy.
No adenopathy.
Prior cholecystectomy. Distention of the common hepatic duct and intrahepatic bile ducts with normal caliber common bile duct. Recommend correlation with liver function tests. If indicated, further evaluation/follow-up MRCP may be considered.
Minor sigmoid diverticulosis without acute diverticulitis.
A/P:
# acute to subacute diarrhea, watery in nature; suspect due to acute viral gastroenteritis
Antibiotic exposure was 2 months ago [employer] for sinus infection, felt less likely to be related to antibiotic
C. difficile neg, norovirus negative
Stool culture Shiga toxin pending
Zofran as needed for nausea
Pt states that she is on colestipol [employer] (prescribed by GI) for diarrhea, restarted questran and increase to TID per GI
GI on board
# sepsis/bacteremia with E coli POA
# UTI with E coli although pt denies to overt urinary symptoms
blood culture and urine Cx with pansensitive E coli
repeat blood Cx is negative
Deescalate ceftriaxone to Ancef
# Prerenal OSCAR with clinical dehydration, resolved
# Hypotension present on admission, resolved
s/p IVF boluses, observe off additional maintenance IVF
# Transaminitis, suspect reactive, improving
Continue to monitor LFT
# Multiple Bilateral renal masses noted on CT abdomen pelvis, incidental finding
Now felt most likely due to multifocal pyelonephritis
Can follow up with urology outpatient
# Distention of common hepatic duct and intrahepatic bile duct with normal common bile duct
This could be related to prior cholecystectomy
Trend LFT, improving
GI on board, recommend outpatient MRI/MRCP vs US
DVT prophylaxis: lovenox SQ
Full code
DW on the phone
Anticipated Discharge: Today
Subjective/Interval History
-
Date of Service: December 23, 2023
Objective Data
-
Labs:
Laboratory Results
12/23/23
06:13
WBC 10.0
Hgb 12.8
Hct 37.9
Plt Count 270
Sodium 144
Potassium 3.9
Chloride 113 H
Carbon Dioxide 27
BUN 8
Creatinine 0.7
Glucose 105 H
Calcium 9.0
Total Bilirubin 0.3
AST 25
ALT 57 H
Alkaline Phosphatase 159 H
Vital Signs:
Vital Signs
Temp Pulse Resp BP Pulse Ox
37.0 C 84 18 143/56 100
12/23/23 07:00 12/23/23 07:00 12/23/23 07:00 12/23/23 07:00 12/23/23 07:00
I&O
12/22/23 12/23/23 12/24/23
06:59 06:59 06:59
Intake Total 240 / 240 1140 / 1140 960 / 960
Balance 240 / 240 1140 / 1140 960 / 960
Review of Systems
-
Abdomen/GI: Reports Diarrhea (improved )
Physical Exam
-
General: Well Developed, Well Nourished, No Apparent Distress, Comfortable and Conversant; Negative Respiratory Distress
HEENT: Normocephalic, Atraumatic, Nose Appears Normal and Ears Appear Normal; Negative Oxygen
Respiratory: Clear to Auscultation and Non Labored Respirations; Negative Accessory Resp Muscle Use
Cardiac: Regular Rhythm and S1/S2
GI: Soft, Nontender, Nondistended and Normal Bowel Sounds
Skin: Warm and Dry
Neuro: Awake and Alert
Psych: Calm and Intact Judgement/Insight
Data Reviewed
-
CT Scan: Report Reviewed by me
Labs: Labs Reviewed by me
--- NOTE | 2023-12-23 14:18 | W.DCSUMMARY ---
Discharge Summary
Discharge Data
Date of Admission: 12/20/23
Date of Discharge: 12/23/23
-
Pending Results: No
Hospital Course
Principal Diagnosis:
Sepsis/bacteremia on admission with pansensitive E coli
Urinary tract infection with pansensitive E. coli
Acute diarrhea may be due to sepsis on admission
Resolved prerenal acute kidney injury from dehydration
Improved transaminitis
Distention of common hepatic duct and intrahepatic bile duct with normal common bile duct
Chronic Diagnoses:�
Hypertension
Consultations:�
Gastroenterology
Procedures:�
None
Clinical course:�
This is a 78-year-old female, with past medical history as stated above, who presented with acute on subacute diarrhea.
A CT abdomen pelvis from admission was largely unrevealing, but noted multiple bilateral renal masses which could be due to multifocal pyelonephritis versus renal masses.
Problem 1:
acute to subacute diarrhea, likely related to sepsis/bacteremia on admission (see below).
Her C. difficile and norovirus were negative.
Stool culture was mostly negative, Shiga toxin was pending at the time of discharge.
She was restarted with her prior to admission colestipol to help with her diarrhea, and she was discharged with 1 g twice daily per GI recommendation.
Problem 2:
Sepsis/bacteremia on admission with pansensitive E coli.
This is in setting of urinary tract infection with pansensitive E. coli as well.
The patient received ceftriaxone during her hospital stay, and this was narrowed down to oral Keflex upon discharge.
She can continue with Keflex for 5 more days following discharge.
Problem 3:
Prerenal OSCAR with clinical dehydration, resolved with IVF.
Problem 4:
Transaminitis, suspect reactive, improved during hospital stay.
Problem 5:
Multiple Bilateral renal masses noted on CT abdomen pelvis, incidental finding.
Now felt most likely due to multifocal pyelonephritis.
The patient can follow-up with her PCP for outpatient BL kidney ultrasound evaluation.
Problem 6:
Distention of common hepatic duct and intrahepatic bile duct with normal common bile duct, incidental finding.
This could be related to her prior cholecystectomy.
GI was consulted for this, and the patient can follow-up outpatient for MRI/MRCP versus ultrasound with GI.
As for the rest of her medical problems, they were stable during her hospital stay.
Discharge Plan
-
Patient Disposition: Home (Routine Discharge)
Discharge Diagnosis/Procedures: Subacute diarrhea; resolved acute kidney injury; sepsis with bacteremia on admission due to E coli urinary tract infection; likely bilateral pyelonephritis
Condition: Fair
Diet: As tolerated
Activity: As tolerated
Driving Restrictions: As prior to admission
Others Tests: consider bilateral kidney ultrasound (to evaluate the bilateral kidney lesions- likely pyelonephritis) to be arranged by your PCP outpatient
Activity Restrictions/Additional Instructions:
Follow up with GI outpatient for outpatient MRI/MRCP vs US
Referrals:
Edvin Pitts MD [Family Provider] - in less than 1 week
Additional Discharge Medication Instructions: Continue Keflex for 5 more days
Continue Colestipol 1 mg BID
Prescriptions:
New
cephalexin 500 mg capsule
500 mg PO BID 5 Days Qty: 10 0RF
colestipol [Colestid] 1 gram tablet
1 g PO BID Qty: 60 0RF
Continued
cyanocobalamin (vitamin B-12) 1,000 mcg Tablet
1,000 mcg PO DAILY
acetaminophen [Tylenol Extra Strength] 500 mg Tablet
1,000 mg PO QIDPRN PRN (Reason: mild pain)
calcium carbonate 500 mg calcium (1,250 mg) Tablet
500 mg PO DAILY
nabumetone 500 mg Tablet
500 mg PO BIDPRN PRN (Reason: mild pain)
duloxetine [Cymbalta] 60 mg Capsule,Delayed Release(Dr/Ec)
60 mg PO HS
amlodipine-benazepril 5-40 mg Capsule
1 cap PO HS
cholecalciferol (vitamin D3) [Vitamin D3] 25 mcg (1,000 unit) Tablet
25 mcg PO QPM
Discharge Orders:
Discharge Patient (As Directed); Ordered 12/23/23
Ordered By: Marylu Lopez
Discharge Date and Time
Print Language: THAI
[2023-12-23] MEDS: ANCEF 5 IV (14:25)
[2023-12-23] MEDS: FLUSH (NSS) 2 FLUSH IV (14:29)
[2023-12-23 15:00] VITALS: BP 164/79
== END 2023-12-23 16:24 | disposition home or self-care (01) | DRG 872 ==
LOC: 3 WEST ACU 18:36
PROVIDERS: Physician Assistant; ADMITTING PHYSICIAN Internal Medicine; CONSULT PHYSICIAN Internal Medicine Gastroenterology; EMERGENCY PHYSICIAN Emergency Medicine; FAMILY PHYSICIAN Internal Medicine
DX: A41.51 Sepsis due to Escherichia coli [E. coli] (principal); N17.9 Acute kidney failure, unspecified; N12 Tubulo-interstitial nephritis, not specified as acute or chronic; I10 Essential (primary) hypertension; K52.9 Noninfective gastroenteritis and colitis, unspecified; E86.0 Dehydration; R74.01 Elevation of levels of liver transaminase levels; I95.9 Hypotension, unspecified; K57.30 Diverticulosis of large intestine without perforation or abscess without bleeding; M79.7 Fibromyalgia; Z90.49 Acquired absence of other specified parts of digestive tract; Z88.5 Allergy status to narcotic agent
CPT/HCPCS: 74177; 80053; 81003; 81015; 83605; 83690; 83735; 85025; 87040; 87045; 87046; 87077; 87086; 87088; 87186; 87205; 87324; 87427; 87449; 87798; 93005; 96360; 96361; 97162; 97166; 99285; Q9967

== ENCOUNTER 2024-01-02 19:00 | Inpatient (IN) | payer MEDICARE, OTHER, SELFPAY ==
[2024-01-02] VITALS (8 sets, daily range): BP systolic 134–184; BP diastolic 80–102; PULSE 91–114; BMI 26.9
[2024-01-02] MEDS: NSS 1000 IV ×2 (14:59→22:00)
--- NOTE | 2024-01-02 15:03 | ED.GENMED ---
History of Present Illness
General
Chief Complaint: Abdominal Symptoms
Source: patient and spouse
Exam Limitations: none
Time Seen by Provider: 01/02/24 14:11
Nursing documentation reviewed up to this point in time: agreed with
Travel History
Have you had any contact with someone who has COVID-19?: No
Do you have any symptoms of coronavirus? Fever > 100 degrees, chills, cough, shortness of breath, sore throat, loss of taste or smell, muscle aches, or headache?: No
History of Present Illness
History of Present Illness:
78 yo female w h/o BPPV, chronic dizziness and balance problems post left ear surgery several years ago presents with 4 days of increasing dizziness, nausea past 2 days and retching today;
Admitted to 12/19- 12/22 for sepsis with E coli, DC'd on Keflex TID for UTI which she finished 4 days ago.
During the past night started with dry heaves and tried Zofran and TUMS with little relief.
Yesterday, dizziness was 'really bad' and 'worse if I turn my head from right to left.'
Has had two separate vestibular therapy episodes 2-3 years ago with good relief of dizziness.
No recent falls/trauma.
Past History
Past History
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
ED Past Surgical History: Appendectomy, , Orthopedic (Shoulder surgery), Tonsilectomy and Other (Cataract surgery)
Social History
Personal:
Living: with family
Employment: Employed
Review of Systems
Review of Systems
Allergies reviewed?: Yes
All Other Systems: ROS reviewed and negative except as documented in HPI and ROS
Constitutional: Denies fever or fatigue
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
Respiratory: Denies trouble breathing
Cardiac: Denies chest pain
ABD/GI: Reports nausea, vomiting and anorexia; Denies abdominal pain or diarrhea
: Denies dysuria, flank pain, difficulty voiding or urgency
Musculoskeletal: Reports no symptoms
Skin: Reports no symptoms
Neurological: Reports dizzy; Denies headache, weakness or numbness
Phy Exam
Physical Exam
Physical Exam:
GENERAL: No acute distress. A&Ox3.
CONSTITUTIONAL: Afebrile.
EYES: PERRL, conjunctivae normal
Neck: Supple
ENMT: moist mucus membranes, Pharynx nl, TMJ with limited jaw ROM.
RESPIRATORY: Regular respirations, nonlabored, lungs clear.
CARDIOVASCULAR: Regular rate and rhythm, no murmurs, no rubs.
GI: Soft, nontender, normal BS
MUSCULOSKELETAL: Moves with ease. Well perfused.
SKIN: Warm, dry, pink
PSYCH: Normal mood and affect. Well kept, interactive and appropriate
NEUROLOGIC: Awake, alert and oriented. No focal neurological deficits
Course
Orders/Labs/Results
Orders:
Orders
01/02/24 14:58
0.9% Sodium Chloride 1000 ml [Nss] 1,000 ml IV BOLUS
01/02/24 15:00
CMP [Comprehensive Metabolic Panel] Urgent
Complete Blood Count/With Diff Urgent
01/02/24 15:02
Physical Therapy Consult [Pt Eval And Treat] Urgent
Treatment: Vestibular eval
Activity Level: As Tolerated
01/02/24 16:05
Urinalysis Reflex To Culture Urgent
Date Specimen was Collected: 01/02/24
Time Specimen was Collected: 16:03
Urine Microscopic Reflex Cult Urgent
Urine Culture Urgent
KAYLYN Source: U
Specimen Description:
Date Specimen was Collected: 01/02/24
Time Specimen was Collected: 16:03
01/02/24 16:52
Ondansetron Injectable [Zofran] 4 mg IV NOW STA
01/02/24 16:56
Lactate Level [Lactic Acid] Urgent
Blood Culture Q30M
KAYLYN Source: Blood/Venous
Specimen Description:
Blood Culture Q30M
KAYLYN Source: Blood/Venous
Specimen Description:
01/02/24 18:15
Admit/Transfer Patient As Directed
Co-Sign Provider:
Level of Care: Inpatient admission
Assign to:: Medical/Surgical
Physician / Group: Buck
Diagnosis: Nausea vomiting dizziness with the leukocytosis-rule out recurrent infectio
Reason for Hospitalization: See progress note.
Expected length of stay greater than two midnights?: Yes
ELOS- Estimated Length of Stay in days: 4
I certify the patient meets the requirements for IP care: Yes
01/02/24 18:16
Code Status As Directed
Resuscitation Status: Full Code
01/02/24 18:22
Iohexol [Omnipaque] See Protocol PO NOW STA
Potassium Chloride [KCl] 40 meq PO NOW STA
Abnormal Lab Results
01/02/24 01/02/24
15:00 16:05
WBC 14.4 H 10^3/uL
(4.8-10.8)
MCH 31.8 H pg
(27.0-31.0)
Plt Count 478 H 10^3/uL
(130-400)
Abs Immat Gran (auto) 0.1 H 10^3/uL
(0-0.05)
Absolute Neuts (auto) 12.1 H 10^3/uL
(1.4-6.5)
Immature Gran % 0.8 H %
(0-0.5)
Neutrophils % 83.9 H %
(42.2-75.2)
Lymphocytes % 10.8 L %
(20.5-51.1)
Potassium 3.3 L mmol/L
(3.5-5.1)
Carbon Dioxide 32 H mmol/L
(22-30)
Glucose 131 H mg/dl
(70-99)
AST 47 H U/L
(14-36)
ALT 41 H U/L
(0-35)
Alkaline Phosphatase 132 H U/L
(38-126)
Leukocyte Esterase Rfl Trace A
(Negative)
Urine Bacteria (Reflex) Moderate A
(Negative)
01/02/24 15:00
01/02/24 15:00
Vital Signs
Initial and Last Documented VS:
Initial Vital Signs
Temp Pulse Resp BP Pulse Ox
98.0 F 111 20 151/99 96
01/02/24 13:45 01/02/24 13:45 01/02/24 13:45 01/02/24 13:45 01/02/24 13:45
Last Documented Vital Signs
Temp Pulse Resp BP Pulse Ox
98.0 F 88 18 144/85 97
01/02/24 13:45 01/02/24 15:03 01/02/24 15:03 01/02/24 15:03 01/02/24 15:46
MDM/Problems Addressed
Differential Diagnosis Includes:
BPPV, exacerbation of chronic dizziness/vertigo, dehydration, UTI, bacteremia
MDM/Problems Addressed:
78 yo female w h/o BPPV, chronic dizziness and balance problems post left ear surgery several years ago presents with 4 days of increasing dizziness, nausea past 2 days and retching today;
Admitted to 12/19- 12/22 for sepsis with E coli, DC'd on Keflex TID for UTI which she finished 4 days ago.
She has been nauseous since finishing the Keflex, during the past night started with dry heaves and tried Zofran and TUMS with little relief. a'
She is concerned her dizziness and nausea have something to do with 'still being infected.'
Yesterday, dizziness was 'really bad' and 'worse if I turn my head from right to left.'
Has had two separate vestibular therapy episodes 2-3 years ago with good relief of dizziness. No recent falls/trauma.
She was to follow up with her PCP yesterday but felt too ill to go. She was supposed to go there today but again, too ill with dizziness, nausea/retching so came here instead.
P/T in, workup negative for BPPV
Recent records reviewed: Initially blood culture positive for e coli, subsequent and discharge blood cultures neg
3:59 PM
CMP: No clinically significant abnormality liver functions improving
CBC: WBC 14.4
U/A 6-10 WBC moderate bacteria, questionable failed out pt antibiotic therapy for UTI, concern for bacteremia
5:42 PM
Plan: admit. Blood cultures pending. Urine culture pending.
Dr. Sutton consulted, agrees with assessment and plan.
Hospitalist notified of admission
Chronic conditions affecting care: HTN and Neurological disorder (chronic intermittent dizziness, balance problems)
*Critical Care Note
Total Time (30-74mins, 75-104mins- exclusive of procedures): Not Applicable
ED Attending Note
-
Portions of this chart may have been created with voice recognition software.� Occasional wrong word or��sound alike� substitutions may have occurred due to the inherent limitations of voice recognition software.
Discharge Plan
Departure
Patient Disposition: Admit
Date of Disposition: 01/02/24
Time of Disposition: 17:32
Admit to: Med/Surg
Presentation/result/management discussed w/ accepting MD/DO: Hospitalist
Condition: Fair
Discharge Problem:
Dizziness, Acute UTI
Prescriptions:
No Action
cyanocobalamin (vitamin B-12) 1,000 mcg Tablet
1,000 mcg PO DAILY
acetaminophen [Tylenol Extra Strength] 500 mg Tablet
1,000 mg PO QIDPRN PRN (Reason: mild pain)
calcium carbonate 500 mg calcium (1,250 mg) Tablet
500 mg PO DAILY
nabumetone 500 mg Tablet
500 mg PO BIDPRN PRN (Reason: mild pain)
duloxetine [Cymbalta] 60 mg Capsule,Delayed Release(Dr/Ec)
60 mg PO HS
amlodipine-benazepril 5-40 mg Capsule
1 cap PO HS
cholecalciferol (vitamin D3) [Vitamin D3] 25 mcg (1,000 unit) Tablet
25 mcg PO QPM
colestipol [Colestid] 1 gram tablet
1 g PO BID Qty: 60 0RF
ondansetron HCl 4 mg tablet
4 mg PO BID PRN (Reason: nausea/vomiting)
cholestyramine-aspartame 4 gram powder in packet
1 ea PO TID
Referrals:
Edvin Pitts MD [Family Provider] -
Interventions
Interventions:
*Risk Screen - Suicide Last Done: 01/02/24 13:45
*General Assessment Last Done: 01/02/24 13:45
*Neglect/Abuse Screening Last Done: 01/02/24 13:45
FI-Kheqou-Lentuvolyl Assessment Last Done: 01/02/24 15:05
Discharge Date and Time
Print Language: SINHALA
[2024-01-02 15:06] LABS: % Basophils 0.2 % (0-2); % Eosinophils 0.1 % (0-6); % Immature Granulocytes 0.8 % (0-0.5); % Lymphocytes 10.8 % (20.5-51.1); % Monocytes 4.2 % (1.7-9.3); % Neutrophils 83.9 % (42.2-75.2); Absolute Immature Granulocytes 0.1 10^3/uL (0-0.05); Absolute Lymphocytes 1.6 10^3/uL (1.2-3.4); Absolute Monocytes 0.6 10^3/uL (0.1-0.6); Absolute Neutrophils 12.1 10^3/uL (1.4-6.5); Hematocrit 44.7 % (37.0-47.0); Hemoglobin 15.5 g/dL (12.0-16.0); Mean Corp Hgb Conc. 34.7 g/dL (33.0-37.0); Mean Corpuscular Hgb 31.8 pg (27.0-31.0); Mean Corpuscular Volume 91.8 fL (81.0-99.0); Mean Platelet Volume 9.6 fL (7.4-10.4); Nucleated Red Blood Cells % 0 %; Platelet Count 478 10^3/uL (130-400); Red Blood Cell Count 4.87 10^6/uL (4.20-5.40); Red Cell Dist. Width 13.2 % (11.5-14.5); White Blood Cell Count 14.4 10^3/uL (4.8-10.8)
[2024-01-02 15:19] LABS: ALT (SGPT) 41 U/L (0-35); AST (SGOT) 47 U/L (14-36); Albumin 3.8 g/dl (3.5-5.0); Alkaline Phosphatase 132 U/L (38-126); Blood Urea Nitrogen 7 mg/dl (7-17); Carbon Dioxide 32 mmol/L (22-30); Chloride 103 mmol/L (98-107); Glucose 131 mg/dl (70-99); Potassium 3.3 mmol/L (3.5-5.1); Sodium 144 mmol/L (135-145); Total Bilirubin 0.6 mg/dl (0.2-1.3); Total Protein 6.7 g/dl (6.3-8.2); eGFR > 60.00
[2024-01-02 16:28] LABS: Urine Albumin Negative (Neg - Trace); Urine Bilirubin Negative (Negative); Urine Character Clear (Clear); Urine Color Yellow; Urine Glucose Negative (Negative); Urine Ketone Negative (Negative); Urine Leukocyte Trace (Negative); Urine Nitrite Negative (Negative); Urine Occult Blood Negative (Negative); Urine Specific Gravity 1.005 (<1.030); Urine Urobilinogen Negative (Neg - 1+)
[2024-01-02 16:41] LABS: Urine Red Blood Cell 0-2 /HPF (0-2); Urine Squamous Cell >30 /LPF (Few)
[2024-01-02 16:42] LABS: Urine Bacteria Moderate (Negative)
[2024-01-02 17:19] LABS: Lactic Acid 1.7 mmol/L (0.7-2.0)
[2024-01-02] MEDS: ZOFRAN 4 MG IV (17:38)
--- NOTE | 2024-01-02 18:22 | HPS.HSE ---
Family Physician
-
Family Physician: Marc Pitts
Chief Complaint
-
Nausea ,dry heaves and dizziness.
History of Present Illness
Patient was admitted for 3 days and december and was discharged on . She was then admitted for E. coli bacteremia from urinary source. There was also abnormal LFTs with a dilatation of biliary ducts and also bilateral renal enhancing lesions. She
was supposed to get MRI for biliary tract and kidneys upon discharge and has not had a chance to arrange them.
While she was in the hospital with infection she felt better. She went home on oral antibiotics. She did not do well with nausea vomiting and dry heaves while on antibiotics. So PCP ordered Zofran which helped.
2 days ago she was feeling weak and tired. She was feeling off balance. She was feeling dizzy. No vertigo. Got worse yesterday. Last night and this morning she continued to have the dizziness. She was started to have nausea again and dry
heaves. No vomiting. She was poor oral intake. She has not been eating and drinking. She is only trying to take some liquids. No solid diet at all today.
She was noticing chills at home but no fevers.
She was having dizziness feeling of while in the bed while also walking. No vertigo. She in the past had a vertigo and this time it did not feel like her vertigo. She is having dry mouth.
No headache.
Feels generally unwell.
Denies any flank pain or abdominal pain. No dysuria frequency of urine.
Denies any sore throat, cough or shortness of breath. No chest pain.
Medical History
Past Medical History
Past Medical History: Reports Other (Osteoporosis, fibromyalgia, perforated left eardrum)
Additional Past Medical History:
Fibromyalgia. Osteoporosis. Left perforated eardrum.
Past Surgical History: Reports Cholecystectomy
Additional Past Surgical History:
Left perforated eardrum status post plasma patch repair
Social History
Tobacco: Non-smoker
Alcohol: None
Personal:
Living: With Family
Family History
Family History: Not pertinent
Allergies / Home Medications
Allergies reflects when Allergies were last updated in [employer].
Home Medications with original date entered in [employer]
Allergy/Medication List:
Allergies
Allergy/AdvReac Type Severity Reaction Status Date / Time
alendronate sodium Allergy debilitating Verified 01/02/24 13:45
[From Fosamax] joint pain
oxycodone [Oxycodone] Allergy Pt states Verified 01/02/24 13:45
if taken
with
antiemetic
she is
able to
tolerate.
Home Medications
acetaminophen 500 mg tablet (Tylenol Extra Strength) 1,000 mg PO QIDPRN PRN mild pain 12/20/23
amlodipine 5 mg-benazepril 40 mg capsule 1 cap PO HS Blood Pressure 12/20/23
calcium carbonate 500 mg PO DAILY Supplement 12/20/23
cholecalciferol (vitamin D3) 25 mcg (1,000 unit) tablet (Vitamin D3) 25 mcg PO QPM Supplement 12/20/23
cyanocobalamin (vitamin B-12) 1,000 mcg tablet 1,000 mcg PO DAILY Supplement 12/20/23
duloxetine 60 mg capsule,delayed release (Cymbalta) 60 mg PO HS Depression 12/20/23
nabumetone 500 mg tablet 500 mg PO BIDPRN PRN mild pain 12/20/23
colestipol 1 gram tablet (Colestid) 1 g PO BID #60 tabs 12/23/23
cholestyramine-aspartame 4 gram oral powder for susp in a packet 1 ea PO TID 01/02/24
ondansetron HCl 4 mg tablet 4 mg PO BID PRN nausea/vomiting 01/02/24
Review of Systems
-
A 12 point ROS was completed and negative except as noted: Yes
Physical Exam
Vital Signs
Vital Signs
Temp Pulse Resp BP Pulse Ox
98.0 F 88 18 144/85 97
01/02/24 13:45 01/02/24 15:03 01/02/24 15:03 01/02/24 15:03 01/02/24 15:46
Physical Exam
General: No Apparent Distress and Other (Generally looks unwell.)
HEENT: No Moist mucous membranes (Dry mucous membrane)
Respiratory: Clear
Cardiac: S1/S2, Regular Rhythm and Tachycardia
GI: Soft, Non Tender, Non Distended and Normal Bowel Sounds
Genito-urinary: No costovertebral tender
Musculoskeletal: No Edema
Neuro: AO x 3, No Motor Deficits and Other (No nystagmus, past-pointing.); No Slurred Speech, Facial Droop or Tremors
Psych: Calm
Laboratory Results
-
01/02/24 15:00
01/02/24 15:00
Laboratory Results
Lactic Acid 1.7 mmol/L (0.7-2.0) 01/02/24 16:56
Total Bilirubin 0.6 mg/dl (0.2-1.3) 01/02/24 15:00
AST 47 U/L (14-36) H 01/02/24 15:00
ALT 41 U/L (0-35) H 01/02/24 15:00
Alkaline Phosphatase 132 U/L (38-126) H 01/02/24 15:00
Data Reviewed
-
Lab Data: Labs Reviewed by me
Impression/Plan
-
Intractable nausea with dry heaves and dizziness. Patient has nonspecific GI and general symptoms but she also has tachycardia with leukocytosis concern for sepsis. She will looks generally unwell. Not focal neurologically and no vertigo. No
nystagmus. Clinical concern of recurrence of her infection. UA is showing no dysuria but she has renal pathology which needs to be reluctant. She also has persistent LFTs with dilated biliary duct which needs to be looked at. She has poor oral
intake because of her nausea and her mucous membranes are dry. Clinical concern of dehydration.
Start on clears.
Start on IV fluids.
Urine and blood cultures are drawn in the ER.
Start on ceftriaxone to cover for E. coli.
Repeated CT of the abdomen pelvis with contrast.
Full code
[2024-01-02] MEDS: KCL 40 MEQ PO (18:56)
[2024-01-02] MEDS: OMNIPAQUE 50 ML PO (18:56)
[2024-01-02] MEDS: ROCEPHIN 1000 MG IV (22:00)
[2024-01-02] MEDS: STERILE WATER FOR INJECTION 10 ML IV (22:01)
[2024-01-02] MEDS: CYMBALTA DELAYED RELEASE 60 MG PO (23:02)
[2024-01-03 00:47] VITALS: BP 158/79
[2024-01-03] MEDS: ZOFRAN 4 MG IV ×2 (05:16→20:16)
--- NOTE | 2024-01-03 06:08 | PTCARENOTE ---
Pt admitted from ED AAOx3. No c/o pain. Ambulating with standby assist. Reports generalized weakness. Pt able to use call gregory appropriately. Pt afebrile. BP elevated. H[employer]ESS[employer]ER aware. BP meds held d/t pt p/w dizziness upon arrival to ED.
Orthostatics ordered and completed. Lungs clear, pt on room air. + nausea, PRN IV zofran given x1. No emesis. Pt c/o constipation. Last normal bowel movement 12/28. Decreased appetite d/t symptoms. Remain on clear liquid diet. Skin intact. R
hand PIV C/D/I, infusing NSS at 125 mL/hr. Pt with good UOP overnight. Awaiting further plan.
[2024-01-03] MEDS: NSS 1000 IV ×2 (06:20→17:22)
[2024-01-03 06:34] LABS: Hematocrit 41.4 % (37.0-47.0); Hemoglobin 13.8 g/dL (12.0-16.0); Mean Corp Hgb Conc. 33.3 g/dL (33.0-37.0); Mean Corpuscular Hgb 31.5 pg (27.0-31.0); Mean Corpuscular Volume 94.5 fL (81.0-99.0); Mean Platelet Volume 9.8 fL (7.4-10.4); Platelet Count 423 10^3/uL (130-400); Red Blood Cell Count 4.38 10^6/uL (4.20-5.40); Red Cell Dist. Width 13.3 % (11.5-14.5); White Blood Cell Count 12.5 10^3/uL (4.8-10.8)
[2024-01-03 06:54] LABS: ALT (SGPT) 34 U/L (0-35); AST (SGOT) 39 U/L (14-36); Alkaline Phosphatase 110 U/L (38-126); Blood Urea Nitrogen 7 mg/dl (7-17); Calcium 9.2 mg/dl (8.4-10.2); Carbon Dioxide 33 mmol/L (22-30); Chloride 107 mmol/L (98-107); Estimated Creatinine Clearance 59 ml/min; Glucose 138 mg/dl (70-99); Potassium 3.7 mmol/L (3.5-5.1); Sodium 146 mmol/L (135-145); Total Bilirubin 0.6 mg/dl (0.2-1.3); Total Protein 5.5 g/dl (6.3-8.2); eGFR > 60.00
[2024-01-03 08:04] VITALS: BP 168/93
--- NOTE | 2024-01-03 09:49 | W.PN.HOSP.TC ---
Today's Communication/Plan
-
Advance diet.
Continue ceftriaxone.
Follow urine culture and blood culture data.
Assessment / Plan
Assessment / Plan
Intractable nausea with dry heaves and dizziness. Patient has nonspecific GI and general symptoms but she also has tachycardia with leukocytosis concern for sepsis. She looked generally unwell on admisson. Not focal neurologically and no vertigo.
No nystagmus. Clinical concern of recurrence of her infection. UA is showing no dysuria but she has renal pathology on recent CT scan which needs to be reevaluated . She also has persistent LFTs with dilated biliary duct which needs to be
looked at. She has poor oral intake because of her nausea and her mucous membranes are dry. Clinical concern of dehydration.
Started on clears.
Started on IV fluids.
Urine and blood cultures are drawn in the ER.
Started on ceftriaxone to cover for E. coli.
Repeated CT of the abdomen pelvis with contrast- radiology report noted
Mild diffuse prominence of the intra- and extra-hepatic biliary ducts, likely within normal limits given patient age and postcholecystectomy state.
Improved appearance of the bilateral kidneys possibly reflecting interval resolution of pyelonephritis.
No significant acute abnormality identified in the abdomen or pelvis.
LFTs improved as well unclear if reactive.
Await culture data until then continue with ceftriaxone. Improving white count noted.
Advance diet.
Full code
Anticipated Discharge: 24 - 48 hours
Subjective/Interval History
-
Date of Service: January 03, 2024
Feels thirsty. Improving nausea. Tolerating clear liquids. No abdominal pain. No diarrhea. Okay to try advancing diet.
Still bit unsteady on the feet but is able to walk to the bathroom by herself. No vertigo.
Objective Data
-
Labs:
Laboratory Results
01/03/24
06:16
WBC 12.5 H
Hgb 13.8
Hct 41.4
Plt Count 423 H
Sodium 146 H
Potassium 3.7
Chloride 107
Carbon Dioxide 33 H
BUN 7
Creatinine 0.7
Glucose 138 H
Calcium 9.2
Total Bilirubin 0.6
AST 39 H
ALT 34
Alkaline Phosphatase 110
Vital Signs:
Vital Signs
Temp Pulse Resp BP Pulse Ox
97.5 F 91 17 168/93 94
01/03/24 08:04 01/03/24 08:04 01/03/24 08:04 01/03/24 08:04 01/03/24 08:04
I&O
01/02/24 01/03/24 01/04/24
06:59 06:59 06:59
Intake Total 1690 / 1690
Balance 1690 / 1690
Review of Systems
-
Respiratory: Denies Cough or Trouble Breathing
Cardiac: Denies Chest Pain
Neuro: Denies Headache
Physical Exam
-
General: No Apparent Distress
HEENT: Moist Mucous Membranes
Respiratory: Clear to Auscultation
Cardiac: Regular Rhythm and S1/S2; Negative Tachycardic
GI: Soft and Nontender
Musculoskeletal: No Edema
Neuro: AO x 3, No Motor Deficits and Other ( No ataxia, no nystagmus); Negative Slurred Speech or Facial Droop
Psych: Calm; Negative Confused
Data Reviewed
-
Labs: Labs Reviewed by me
[2024-01-03 10:14] VITALS: BP 168/101; PULSE 107; O2SAT 96
--- NOTE | 2024-01-03 11:57 | CM ---
Reviewed chart, met with patient to obtain information for assessment. Patient stated that she had to go to the bathroom but her spouse was at bedside and able to answer questions. Patient's spouse stated that spouse lives with her in a two story,
single home, with one step to enter.
He described patient as independent with her ADLs, personal care, dressing and bathing and ambulates without device. She can cook, clean, do senior engineering team leader and laundry. She drives and can get to her appointments and do all of her own shopping.
Patient has never had VN services. She has not been to a SNF in the past.
Patient has a prescription plan and uses, [facility] on [address] for all of her medications. Her PCP is, Dr. Marc Higgins.
Patient's spouse feels that physically patient is at baseline and should be able to return home when medically stable. CM observed patient ambulating in room to the bathroom.
Plan: Case management will continue to follow and assist with discharge planning. Patient's spouse feels that patient will be able to return home when stable.
[2024-01-03 14:30] VITALS: BP 142/100; BP 152/92; BP 168/91; PULSE 106; PULSE 111; PULSE 96
[2024-01-03 15:28] VITALS: BP 183/87
--- NOTE | 2024-01-03 15:50 | PTCARENOTE ---
Pt. 1500 BP was 187/83. Her BP medication was on hold due to her admission diagnosis. This RN, notified the MD KIKI gave verbal order over the phone to restart her blood pressure medication tonight at bedtime to follow her home schedule.
[2024-01-03] MEDS: LOVENOX 40 MG SC (17:22)
[2024-01-03] MEDS: NON-FORMULARY ITEM 1 GRAMS PO (20:15)
[2024-01-03] MEDS: ROCEPHIN 1000 MG IV (20:49)
[2024-01-03] MEDS: STERILE WATER FOR INJECTION 10 ML IV (20:50)
[2024-01-03] MEDS: LOTREL 1 CAPSULE PO (21:41)
[2024-01-03] MEDS: CYMBALTA DELAYED RELEASE 60 MG PO (21:41)
[2024-01-03] MEDS: NSS IV (22:08)
[2024-01-03 23:00] VITALS: BP 162/90
[2024-01-04] MEDS: ZOFRAN 4 MG IV ×2 (02:38→10:40)
[2024-01-04 06:07] LABS: Hematocrit 42.8 % (37.0-47.0); Hemoglobin 14.1 g/dL (12.0-16.0); Mean Corp Hgb Conc. 32.9 g/dL (33.0-37.0); Mean Corpuscular Hgb 31.9 pg (27.0-31.0); Mean Corpuscular Volume 96.8 fL (81.0-99.0); Platelet Count 420 10^3/uL (130-400); Red Blood Cell Count 4.42 10^6/uL (4.20-5.40); Red Cell Dist. Width 13.6 % (11.5-14.5); White Blood Cell Count 11.4 10^3/uL (4.8-10.8)
[2024-01-04 06:39] LABS: ALT (SGPT) 38 U/L (0-35); AST (SGOT) 33 U/L (14-36); Albumin 3.5 g/dl (3.5-5.0); Alkaline Phosphatase 113 U/L (38-126); Blood Urea Nitrogen 5 mg/dl (7-17); Calcium 9.5 mg/dl (8.4-10.2); Carbon Dioxide 31 mmol/L (22-30); Chloride 115 mmol/L (98-107); Estimated Creatinine Clearance 59 ml/min; Glucose 109 mg/dl (70-99); Sodium 155 mmol/L (135-145); Total Bilirubin 0.4 mg/dl (0.2-1.3); Total Protein 6.1 g/dl (6.3-8.2); eGFR > 60.00
[2024-01-04 07:00] VITALS: BP 144/79
[2024-01-04] MEDS: NON-FORMULARY ITEM 1 GRAMS PO ×2 (07:57→19:25)
[2024-01-04] MEDS: KCL 40 MEQ PO (10:40)
[2024-01-04] MEDS: KCL 1005 MEQ IV (10:53)
--- NOTE | 2024-01-04 12:12 | PN.CDI ---
CDI
- -
CDI:
Physician Documentation Request
Admit Date: 01/02/24 19:00
Dear Doctor Buck
Patient admitted with concern for sepsis.
Sodium resulted as follows:
01/02/24 01/03/24 01/04/24
15:00 06:16 05:43
Sodium 144 146 H 155 H D
Could you provide a diagnosis that supports the above lab abnormalities and additional evaluation/monitoring:
Hypernatremia
abnormal lab value clinically insignificant
Other
Use of terms such as suspected, likely, concern for, or probable (associated with a specific diagnosis that is being evaluated, monitored, or treated as if it exists) are acceptable and can be coded in the inpatient setting, when documented at the
time of discharge.
Thank you,
Bonny Quinn RN, BSN
CDI Specialist
tiger text
Please use your independent medical judgment in providing your response.
--- NOTE | 2024-01-04 12:50 | W.PN.HOSP.TC ---
Today's Communication/Plan
-
Hold further antibiotics and if remains stable will DC in a.m.
Correct electrolytes.
Assessment / Plan
Assessment / Plan
Intractable nausea with dry heaves and dizziness. Patient has nonspecific GI and general symptoms but she also has tachycardia with leukocytosis concern for sepsis. She looked generally unwell on admisson. Not focal neurologically and no vertigo.
No nystagmus. Clinical concern of recurrence of her infection. UA is showing no dysuria but she has renal pathology on recent CT scan which needs to be reevaluated . She also has persistent LFTs with dilated biliary duct which needs to be
looked at. She has poor oral intake because of her nausea and her mucous membranes are dry. Clinical concern of dehydration.
Repeated CT of the abdomen pelvis with contrast- radiology report noted
Mild diffuse prominence of the intra- and extra-hepatic biliary ducts, likely within normal limits given patient age and postcholecystectomy state.
Improved appearance of the bilateral kidneys possibly reflecting interval resolution of pyelonephritis.
No significant acute abnormality identified in the abdomen or pelvis.
No further GI symptoms. Tolerating low-fat diet.
Not bacteremic.
Urine analysis on admission showed more than 30 squamous cells and no pyuria and urine culture shows 40,000 colony count mixed kamaljit all suggestive of contamination. She has no dysuria frequency of urine.
She is clinically improved and white count is improving. Unclear if this is bacterial. Would favor holding ceftriaxone for now. Continue to follow clinically for any recurrence of symptoms.
Recent visit with E. coli bacteriuria and bacteremia with CT evidence of possible Pyelo noted - Clinical picture may be off pyelo -she is 12 days past that admission and has been receiving abx and now non bacteremic and improved CT of kidneys. Favor
holding further abx and follow for any clinical symptoms.
Hypernatremia with hypokalemia - surprised without out GI losses - repeat BMP
LFTs improved as well unclear if reactive.
Full code
Anticipated Discharge: Within 24 hours
Subjective/Interval History
-
Date of Service: January 04, 2024
Patient complains of being'heady'
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 She follows up with ENT. Denies
any vertigious element.
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
She gets tinnitus on a regular basis in both the ears.
Tolerating diet. No further diarrhea. Had a small bowel movement this morning.
Objective Data
-
Labs:
Laboratory Results
01/04/24 01/04/24
05:43 11:43
WBC 11.4 H
Hgb 14.1
Hct 42.8
Plt Count 420 H
Sodium 155 H D Pending
Potassium 3.0 L Pending
Chloride 115 H Pending
Carbon Dioxide 31 H Pending
BUN 5 L Pending
Creatinine 0.7 Pending
Glucose 109 H Pending
Calcium 9.5 Pending
Total Bilirubin 0.4
AST 33
ALT 38 H
Alkaline Phosphatase 113
Vital Signs:
Vital Signs
Temp Pulse Resp BP Pulse Ox
97.6 F 89 16 144/79 93
01/04/24 07:00 01/04/24 07:00 01/04/24 07:00 01/04/24 07:00 01/04/24 09:09
I&O
01/03/24 01/04/24 01/05/24
06:59 06:59 06:59
Intake Total 1690 / 1690 960 / 960
Balance 1690 / 1690 960 / 960
Review of Systems
-
Constitutional: Denies Fever
EENT: Denies Sore Throat
Respiratory: Denies Trouble Breathing
Cardiac: Denies Chest Pain
Abdomen/GI: Denies Abdominal Pain, Nausea or Vomiting
Neuro: Reports Dizzy (feels heady)
Physical Exam
-
General: No Apparent Distress
HEENT: Moist Mucous Membranes
Respiratory: Clear to Auscultation
Cardiac: Regular Rhythm and S1/S2
GI: Soft and Nontender
Neuro: AO x 3 and No Motor Deficits
Psych: Calm
Data Reviewed
-
Labs: Labs Reviewed by me
[2024-01-04 12:58] LABS: Blood Urea Nitrogen 5 mg/dl (7-17); Calcium 9.9 mg/dl (8.4-10.2); Carbon Dioxide 35 mmol/L (22-30); Chloride 113 mmol/L (98-107); Estimated Creatinine Clearance 59 ml/min; Glucose 128 mg/dl (70-99); Potassium 3.6 mmol/L (3.5-5.1); Sodium 157 mmol/L (135-145); eGFR > 60.00
[2024-01-04 13:05] LABS: Procalcitonin < 0.05 ng/ml (0.0-0.25)
[2024-01-04 14:43] VITALS: BP 169/96
[2024-01-04 16:33] VITALS: BP 160/92
[2024-01-04] MEDS: LOVENOX 40 MG SC (17:22)
[2024-01-04] MEDS: CYMBALTA DELAYED RELEASE 60 MG PO (21:22)
[2024-01-04] MEDS: LOTREL 1 CAPSULE PO (21:22)
[2024-01-04 21:28] VITALS: BP 158/78; BP 161/100; BP 169/94; PULSE 104; PULSE 110; PULSE 99
[2024-01-04 23:08] VITALS: BP 160/85
[2024-01-05] MEDS: KCL 1005 MEQ IV ×2 (00:16→08:49)
[2024-01-05 07:15] VITALS: BP 116/78
[2024-01-05 07:18] LABS: Hemoglobin 13.2 g/dL (12.0-16.0); Mean Corp Hgb Conc. 33.8 g/dL (33.0-37.0); Mean Corpuscular Hgb 32.2 pg (27.0-31.0); Mean Corpuscular Volume 95.1 fL (81.0-99.0); Mean Platelet Volume 9.9 fL (7.4-10.4); Platelet Count 343 10^3/uL (130-400); Red Cell Dist. Width 13.8 % (11.5-14.5); White Blood Cell Count 9.2 10^3/uL (4.8-10.8)
[2024-01-05 07:51] LABS: Blood Urea Nitrogen 5 mg/dl (7-17); Carbon Dioxide 31 mmol/L (22-30); Chloride 111 mmol/L (98-107); Estimated Creatinine Clearance 52 ml/min; Glucose 120 mg/dl (70-99); Potassium 3.2 mmol/L (3.5-5.1); Sodium 148 mmol/L (135-145); eGFR > 60.00
[2024-01-05] MEDS: NON-FORMULARY ITEM 1 GRAMS PO (08:45)
--- NOTE | 2024-01-05 10:43 | W.PN.HOSP.TC ---
Addendum entered and electronically signed by Ko Jane MD 01/05/24 13:03:
Pt sasys she had few tabs may be left of nausea meds .
She used it sometime with her dizziness .
Advised to come back to ER if abdo pain ,diarrhea, fever .
Original Note:
Today's Communication/Plan
-
DC
Assessment / Plan
Assessment / Plan
Intractable nausea with dry heaves and dizziness. Patient has nonspecific GI and general symptoms but she also has tachycardia with leukocytosis concern for sepsis. She looked generally unwell on admisson. Not focal neurologically and no vertigo.
No nystagmus. Clinical concern of recurrence of her infection. UA is showing no dysuria but she has renal pathology on recent CT scan which needs to be reevaluated . She also has persistent LFTs with dilated biliary duct which needs to be
looked at. She has poor oral intake because of her nausea and her mucous membranes are dry. Clinical concern of dehydration.
Repeated CT of the abdomen pelvis with contrast- radiology report noted
Mild diffuse prominence of the intra- and extra-hepatic biliary ducts, likely within normal limits given patient age and postcholecystectomy state.
Improved appearance of the bilateral kidneys possibly reflecting interval resolution of pyelonephritis.
No significant acute abnormality identified in the abdomen or pelvis.
No further GI symptoms. Tolerating low-fat diet.
Not bacteremic.
Urine analysis on admission showed more than 30 squamous cells and no pyuria and urine culture shows 40,000 colony count mixed kamaljit all suggestive of contamination. She has no dysuria frequency of urine.
She is clinically improved and white count normalized. Procalcitonin was normal. Unclear if this is bacterial. Stable despite holding further ceftriaxone .
Recent visit with E. coli bacteriuria and bacteremia with CT evidence of possible Pyelo noted - Clinical picture may be off pyelo -she is 12 days past that admission and has been receiving abx and now non bacteremic and improved CT of kidneys. Favor
holding further abx and follow for any clinical symptoms.
Hypernatremia with hypokalemia - surprised without out GI losses - repeat BMP showed same -suspect some of hypernatremia and hypercholermia may be related to NSS infusion and poor intake. Now improved. No GI symptoms .
LFTs improved as well unclear if reactive.
Full code
With resolved GI symptoms and tolerance of diet - dc home today
Anticipated Discharge: Today
Subjective/Interval History
-
Date of Service: January 05, 2024
Her 'heady' symptom is no worse and chronic for her.
Ambulating to the bathroom.
No further nausea or vomiting. No further diarrhea.
Tolerating diet.
Looking forward for discharge.
No fever or chills.
Denies any dysuria frequency of urine.
No abdominal pain.
Objective Data
-
Labs:
Laboratory Results
01/05/24
07:03
WBC 9.2
Hgb 13.2
Hct 39.0
Plt Count 343
Sodium 148 H D
Potassium 3.2 L
Chloride 111 H
Carbon Dioxide 31 H
BUN 5 L
Creatinine 0.8
Glucose 120 H
Calcium 9.0
Vital Signs:
Vital Signs
Temp Pulse Resp BP Pulse Ox
98.3 F 89 17 116/78 97
01/05/24 07:15 01/05/24 07:15 01/05/24 07:15 01/05/24 07:15 01/05/24 07:15
I&O
01/04/24 01/05/24 01/06/24
06:59 06:59 06:59
Intake Total 960 / 960 2400 / 2400
Balance 960 / 960 2400 / 2400
Review of Systems
-
EENT: Denies Sore Throat
Respiratory: Denies Cough or Trouble Breathing
Cardiac: Denies Chest Pain
Physical Exam
-
General: No Apparent Distress
HEENT: Moist Mucous Membranes
Respiratory: Clear to Auscultation
Cardiac: Regular Rhythm and S1/S2; Negative Tachycardic
GI: Soft and Nontender
Neuro: AO x 3; Negative Slurred Speech or Facial Droop
Psych: Calm; Negative Confused
Data Reviewed
-
Labs: Labs Reviewed by me
--- NOTE | 2024-01-05 10:49 | W.DS.TRANS ---
DC Summary - Grain Elevator Operator
-
Discharge Instructions:
Discharge Diagnosis/Procedures Non specific GI symptoms with dehydration
Diet Regular
Activity As tolerated
Driving Restrictions As prior to admission
Bathing Restrictions None
Other Services PT
Instructions:
Stand-Alone Forms:
Changes to Home Medications: No
Discharge Medications:
DC Medications w/original date entered in [facility]
acetaminophen 500 mg tablet (Tylenol Extra Strength) 1,000 mg PO QIDPRN PRN mild pain 12/20/23
amlodipine 5 mg-benazepril 40 mg capsule 1 cap PO HS Blood Pressure 12/20/23
calcium carbonate 500 mg PO DAILY Supplement 12/20/23
cholecalciferol (vitamin D3) 25 mcg (1,000 unit) tablet (Vitamin D3) 25 mcg PO QPM Supplement 12/20/23
cyanocobalamin (vitamin B-12) 1,000 mcg tablet 1,000 mcg PO DAILY Supplement 12/20/23
duloxetine 60 mg capsule,delayed release (Cymbalta) 60 mg PO HS Depression 12/20/23
nabumetone 500 mg tablet 500 mg PO BIDPRN PRN mild pain 12/20/23
colestipol 1 gram tablet (Colestid) 1 g PO BID #60 tabs 12/23/23
ondansetron HCl 4 mg tablet 4 mg PO BID PRN nausea/vomiting 01/02/24
Home Medication Changes
Pending Results: No
[2024-01-05 11:31] VITALS: BP 128/90
--- NOTE | 2024-01-05 11:36 | CM ---
Pt for d/c today
Has ride home with D/C
Discussed IMM
Plan - home no needs
[2024-01-05] MEDS: KCL 40 MEQ PO (12:36)
== END 2024-01-05 13:08 | disposition home or self-care (01) | DRG 872 ==
LOC: 3 WEST ACU 19:00
PROVIDERS: Registered Nurse; ADMITTING PHYSICIAN Internal Medicine; EMERGENCY PHYSICIAN Emergency Medicine; FAMILY PHYSICIAN Internal Medicine
DX: A41.9 Sepsis, unspecified organism (principal); N39.0 Urinary tract infection, site not specified; E87.0 Hyperosmolality and hypernatremia; I10 Essential (primary) hypertension; M79.7 Fibromyalgia; E87.6 Hypokalemia; E86.0 Dehydration; M81.0 Age-related osteoporosis without current pathological fracture; R42 Dizziness and giddiness; Z87.440 Personal history of urinary (tract) infections; Z90.49 Acquired absence of other specified parts of digestive tract; Z88.5 Allergy status to narcotic agent; Z88.8 Allergy status to other drugs, medicaments and biological substances
CPT/HCPCS: 74177; 80048; 80053; 81003; 81015; 83605; 84145; 85025; 85027; 87040; 87086; 96374; 97116; 97530; 99284; Q9967

== ENCOUNTER → 2024-01-17 14:22 | Outpatient (REF) | payer MEDICARE, OTHER, SELFPAY ==
[2024-01-17 14:58] LABS: % Basophils 0.3 % (0-2); % Eosinophils 1.3 % (0-6); % Immature Granulocytes 0.4 % (0-0.5); % Lymphocytes 19.1 % (20.5-51.1); % Monocytes 5.6 % (1.7-9.3); % Neutrophils 73.3 % (42.2-75.2); Absolute Eosinophils 0.1 10^3/uL (0-0.7); Absolute Lymphocytes 1.8 10^3/uL (1.2-3.4); Absolute Monocytes 0.5 10^3/uL (0.1-0.6); Hematocrit 45.6 % (37.0-47.0); Hemoglobin 14.7 g/dL (12.0-16.0); Mean Corp Hgb Conc. 32.2 g/dL (33.0-37.0); Mean Corpuscular Hgb 31.7 pg (27.0-31.0); Mean Corpuscular Volume 98.5 fL (81.0-99.0); Nucleated Red Blood Cells % 0 %; Platelet Count 279 10^3/uL (130-400); Red Blood Cell Count 4.63 10^6/uL (4.20-5.40); Red Cell Dist. Width 13.9 % (11.5-14.5); White Blood Cell Count 9.6 10^3/uL (4.8-10.8)
[2024-01-17 15:26] LABS: ALT (SGPT) 24 U/L (0-35); AST (SGOT) 31 U/L (14-36); Albumin 3.9 g/dl (3.5-5.0); Alkaline Phosphatase 89 U/L (38-126); Direct Bilirubin 0.4 mg/dl (0.0-0.4); Total Bilirubin 0.5 mg/dl (0.2-1.3); Total Protein 6.6 g/dl (6.3-8.2)
== END ==
LOC: REG 14:22
PROVIDERS: ATTENDING PHYSICIAN Internal Medicine
DX: Z86.19 Personal history of other infectious and parasitic diseases (principal); R74.8 Abnormal levels of other serum enzymes; N39.0 Urinary tract infection, site not specified
CPT/HCPCS: 36415; 80076; 85025; 87086

== ENCOUNTER 2024-03-12 09:16 | Emergency (ER) | payer MEDICARE, OTHER, SELFPAY ==
[2024-03-12 09:17] VITALS: BP 119/79
--- NOTE | 2024-03-12 09:21 | ED.GENMED ---
History of Present Illness
<Sharri Perez PA-C - Last Filed: 03/12/24 13:38>
General
Chief Complaint: Abdominal Symptoms
Source: patient
Exam Limitations: none
Time Seen by Provider: 03/12/24 09:21
Nursing documentation reviewed up to this point in time: agreed with
History of Present Illness
History of Present Illness:
This is a 79 y/o female with a PMH of of hypertension, fibromyalgia, osteoporosis presenting emergency department today with concerns of nausea and diarrhea. Patient states that this occurred yesterday. Patient states that yesterday, she started
to have multiple episodes of explosive diarrhea throughout the day. Patient states that it eventually resolved towards in the night. Patient had occasional cramping in her abdomen associated with this. Patient also had a lot of nausea and dry
heaving but no vomiting. Patient denies any fevers or chills. Patient thought it was a 24-hour illness, however when she woke up this morning, the symptoms returned and she said presents emergency department. Patient was recently hospitalized
here in December for similar symptoms with intractable nausea but was also found to have concurrent urosepsis. Patient states that at that time, she had no UTI symptoms, and she currently denies any UTI symptoms such as urinary frequency, urgency,
burning, or hematuria. Patient states that she does have chronic loose stools and takes medication for this however got a lot worse yesterday. Patient states there is no blood in her stools. Patient expresses concern about flank pain as well, she
said she recently had pyelonephritis a few months ago and it felt similar to this, however she is also unsure if this is related to her fibroid myalgia.
Past History
<Sharri Perez PA-C - Last Filed: 03/12/24 13:38>
Past History
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
ED Past Surgical History: Appendectomy, , Orthopedic (Shoulder surgery), Tonsilectomy and Other (Cataract surgery)
Social History
Personal:
Living: with family
Employment: Employed
Review of Systems
<Sharri Perez PA-C - Last Filed: 03/12/24 13:38>
Review of Systems
All Other Systems: ROS reviewed and negative except as documented in HPI and ROS
Phy Exam
<Sharri Perez PA-C - Last Filed: 03/12/24 13:38>
Physical Exam
Physical Exam:
General: Patient is well appearing and in no acute distress; non-toxic
Skin: Small skin tear on the left anterior lower extremity with a small area of surrounding erythema. It is not hot to the touch. Dry mucous membranes.
Head: Normocephalic, atraumatic
Eyes: Sclera non-icteric. EOMs intact. PERRLA.
Cardiac: Tachycardia noted otherwise regular rhythm, no murmurs
Peripheral Vascular: No lower extremity swelling or edema
Pulm: Normal respiratory effort
Abdomen: No abdominal tenderness to palpation, no palpable masses, no rebound tenderness or guarding. No CVA tenderness bilaterally.
Neuro: CN II-XII intact, no focal neurologic deficits.
Psychiatric: Appropriate mood and affect.
Course
<Sharri Perez PA-C - Last Filed: 03/12/24 13:38>
Orders/Labs/Results
Orders:
Orders
03/12/24 09:22
IV Insert/Care/Rem.- Treatment PRN
03/12/24 09:35
Complete Blood Count/With Diff Urgent
Comprehensive Metabolic Panel Urgent
Lipase Urgent
Urinalysis Reflex To Culture Urgent
Date Specimen was Collected: 03/12/24
Time Specimen was Collected: 09:31
Urine Microscopic Reflex Cult Urgent
Urine Culture Urgent
KAYLYN Source: U
Specimen Description:
Date Specimen was Collected: 03/12/24
Time Specimen was Collected: 09:31
03/12/24 09:57
0.9% Sodium Chloride 500 ml [Nss] 500 ml IV BOLUS
03/12/24 10:10
Ondansetron Injectable [Zofran] 4 mg IV NOW STA
03/12/24 10:59
0.9% Sodium Chloride 500 ml [Nss] 500 ml IV BOLUS
03/12/24 12:02
C DIFF [C difficile Antigen & Toxins] Urgent
KAYLYN Source: Feces/Stool
Specimen Description:
Date Specimen was Collected: 03/12/24
Time Specimen was Collected: 12:00
Stool Culture Urgent
KAYLYN Source: Feces/Stool
Specimen Description:
Date Specimen was Collected: 03/12/24
Time Specimen was Collected: 12:00
Abnormal Lab Results
03/12/24
09:35
WBC 12.9 H 10^3/uL
(4.8-10.8)
Hgb 16.6 H g/dL
(12.0-16.0)
Hct 48.7 H %
(37.0-47.0)
MCH 32.7 H pg
(27.0-31.0)
Abs Immat Gran (auto) 0.1 H 10^3/uL
(0-0.05)
Absolute Neuts (auto) 10.0 H 10^3/uL
(1.4-6.5)
Absolute Monos (auto) 1.0 H 10^3/uL
(0.1-0.6)
Neutrophils % 77.8 H %
(42.2-75.2)
Lymphocytes % 13.1 L %
(20.5-51.1)
BUN 21 H mg/dl
(7-17)
Glucose 114 H mg/dl
(70-99)
Calcium 10.5 H mg/dl
(8.4-10.2)
Leukocyte Esterase Rfl Trace A
(Negative)
Urine Bacteria (Reflex) Moderate A
(Negative)
03/12/24 09:35
03/12/24 09:35
Vital Signs
Initial and Last Documented VS:
Initial Vital Signs
Temp Pulse Resp BP Pulse Ox
97.5 F 110 16 119/79 95
03/12/24 09:17 03/12/24 09:17 03/12/24 09:17 03/12/24 09:17 03/12/24 09:17
Last Documented Vital Signs
Temp Pulse Resp BP Pulse Ox
98.6 F 85 25 135/66 97
03/12/24 12:50 03/12/24 12:50 03/12/24 12:50 03/12/24 12:50 03/12/24 12:50
<Guillermo Cuellar, - Last Filed: 03/12/24 13:59>
Orders/Labs/Results
Orders:
Orders
03/12/24 09:22
IV Insert/Care/Rem.- Treatment PRN
03/12/24 09:35
Complete Blood Count/With Diff Urgent
Comprehensive Metabolic Panel Urgent
Lipase Urgent
Urinalysis Reflex To Culture Urgent
Date Specimen was Collected: 03/12/24
Time Specimen was Collected: 09:31
Urine Microscopic Reflex Cult Urgent
Urine Culture Urgent
KAYLYN Source: U
Specimen Description:
Date Specimen was Collected: 03/12/24
Time Specimen was Collected: :31
03/12/24 09:57
0.9% Sodium Chloride 500 ml [Nss] 500 ml IV BOLUS
03/12/24 10:10
Ondansetron Injectable [Zofran] 4 mg IV NOW STA
03/12/24 10:59
0.9% Sodium Chloride 500 ml [Nss] 500 ml IV BOLUS
03/12/24 12:02
C DIFF [C difficile Antigen & Toxins] Urgent
KAYLYN Source: Feces/Stool
Specimen Description:
Date Specimen was Collected: 03/12/24
Time Specimen was Collected: 12:00
Stool Culture Urgent
KAYLYN Source: Feces/Stool
Specimen Description:
Date Specimen was Collected: 03/12/24
Time Specimen was Collected: 12:00
Abnormal Lab Results
03/12/24
09:35
WBC 12.9 H 10^3/uL
(4.8-10.8)
Hgb 16.6 H g/dL
(12.0-16.0)
Hct 48.7 H %
(37.0-47.0)
MCH 32.7 H pg
(27.0-31.0)
Abs Immat Gran (auto) 0.1 H 10^3/uL
(0-0.05)
Absolute Neuts (auto) 10.0 H 10^3/uL
(1.4-6.5)
Absolute Monos (auto) 1.0 H 10^3/uL
(0.1-0.6)
Neutrophils % 77.8 H %
(42.2-75.2)
Lymphocytes % 13.1 L %
(20.5-51.1)
BUN 21 H mg/dl
(7-17)
Glucose 114 H mg/dl
(70-99)
Calcium 10.5 H mg/dl
(8.4-10.2)
Leukocyte Esterase Rfl Trace A
(Negative)
Urine Bacteria (Reflex) Moderate A
(Negative)
03/12/24 09:35
03/12/24 09:35
Vital Signs
Initial and Last Documented VS:
Initial Vital Signs
Temp Pulse Resp BP Pulse Ox
97.5 F 110 16 119/79 95
03/12/24 09:17 03/12/24 09:17 03/12/24 09:17 03/12/24 09:17 03/12/24 09:17
Last Documented Vital Signs
Temp Pulse Resp BP Pulse Ox
98.6 F 85 25 135/66 97
03/12/24 12:50 03/12/24 12:50 03/12/24 12:50 03/12/24 12:50 03/12/24 12:50
Josselt;Sharri Perez PA-C - Last Filed: 03/12/24 13:38>
MDM/Problems Addressed
Differential Diagnosis Includes:
ddx include gastroenteritis, c diff colitis, acute kidney injury, urinary tract infection, pyelonephritis
MDM/Problems Addressed:
Diarrhea, nausea:
This is a 79 y/o female with a PMH of of hypertension, fibromyalgia, osteoporosis presenting emergency department today with concerns of nausea and diarrhea. Patient states that this occurred yesterday. Patient states that yesterday, she started
to have multiple episodes of explosive diarrhea throughout the day. Patient states that it eventually resolved towards in the night. Patient had occasional cramping in her abdomen associated with this. Patient also had a lot of nausea and dry
heaving but no vomiting. Patient denies any fevers or chills. This continued into today.
On physical exam, she is well-appearing, afebrile. Tachycardic upon presentation however tachycardia resolved with IV fluids and treatment of her nausea. Her lab work demonstrates a mild leukocytosis, and her chemistry demonstrates a mild
elevation in BUN. Patient was given a liter of IV fluids. Urinalysis was negative for occult blood, did show some trace leukocytes. Patient has no urinary symptoms. Discussed that patient likely has gastroenteritis, we did discuss following up
with her family doctor for stool studies. Patient's nausea did resolve. Patient is concerned that her lower extremity wound is nonhealing and could be infected. Considering surrounding redness and pain, I think treating with antibiotics is
reasonable. We did send Keflex to the patient's pharmacy. Patient stable for discharge.
Chronic conditions affecting care:
High blood pressure
Acute Exacerbation and/or Progression of Chronic Illness:
n/a
<Sharri Perez PA-C - Last Filed: 03/12/24 13:38>
*Pulse Oximetry
Patient hypoxic: no
*Critical Care Note
Total Time (30-74mins, 75-104mins- exclusive of procedures): Not Applicable
Data Reviewed
Review of Other/Old Records Reveals: Records (Reviewed previous ER physician documentation from 01/02/2024) and Discharge Summary (Reviewed discharge summary from where patient was hospitalized for similar symptoms and intractable nausea)
<Sharri Perez PA-C - Last Filed: 03/12/24 13:38>
Patient Management
Escalation/DeEscalation of care consider admission/obs:
Admit not indicated. Patient stable for discharge. Case reviewed with my attending Dr. Cuellar.
<Sharri Perez PA-C - Last Filed: 03/12/24 13:38>
Update Note
Update Note:
11:00 am-- Reevaluated patient, she is well appearing, just got her zofran, nausea
ED Attending Note
<Sharri Perez PA-C - Last Filed: 03/12/24 13:38>
-
Portions of this chart may have been created with voice recognition software.� Occasional wrong word or��sound alike� substitutions may have occurred due to the inherent limitations of voice recognition software.
<Guillermo Cuellar DO - Last Filed: 03/12/24 13:59>
ED Attending Note
Patient seen and examined by attending physician: Yes
I performed the substantive portion of visit, reviewed & personally made and approve the management plan that is documented in note by myself or NADIRA.: Yes
I performed a history and physical exam of patient and discussed management with resident, I reviewed resident's note and agree with documented findings and plan of care.: Yes
ED Attending Note:
I evaluated patient at bedside and is very well-appearing.
Discharge Plan
Departure
Patient Disposition: Home (Routine Discharge)
Date of Disposition: 03/12/24
Time of Disposition: 12:12
Patient with high blood pressure during this ER visit?: No
Condition: Good
Discharge Problem:
Diarrhea in adult patient, Cellulitis
Instructions: Nausea and Vomiting, Adult (DC), Diarrhea, Adult ED
Prescriptions:
New
cephalexin 500 mg capsule
500 mg PO QID 7 Days Qty: 28 0RF
ondansetron HCl 4 mg tablet
4 mg PO Q8H PRN (Reason: nausea and vomiting) Qty: 8 0RF
No Action
cyanocobalamin (vitamin B-12) 1,000 mcg Tablet
1,000 mcg PO DAILY
acetaminophen [Tylenol Extra Strength] 500 mg Tablet
1,000 mg PO QIDPRN PRN (Reason: mild pain)
calcium carbonate 500 mg calcium (1,250 mg) Tablet
500 mg PO DAILY
nabumetone 500 mg Tablet
500 mg PO BIDPRN PRN (Reason: mild pain)
duloxetine [Cymbalta] 60 mg Capsule,Delayed Release(Dr/Ec)
60 mg PO HS
amlodipine-benazepril 5-40 mg Capsule
1 cap PO HS
cholecalciferol (vitamin D3) [Vitamin D3] 25 mcg (1,000 unit) Tablet
25 mcg PO QPM
colestipol [Colestid] 1 gram tablet
1 g PO BID Qty: 60 0RF
ondansetron HCl 4 mg tablet
4 mg PO BID PRN (Reason: nausea/vomiting)
ondansetron HCl 4 mg tablet
4 mg PO Q8HPRN PRN (Reason: nausea and vomiting) Qty: 12 0RF
Referrals:
Edvin Pitts MD [Family Provider] -
Activity Restrictions/Additional Instructions:
Please follow up with your primary care provider for stool cultures. We will call you with results if the lab was able to result your sample.
Please return to the emergency department should you experience intractable vomiting, persistent nausea, fevers or chills, chest pain, shortness of breath, persistent abdominal pain, urinary frequency or burning, and acute worsening of your pain, or
any other signs or symptoms concerning to you.
We have sent an antibiotic to your pharmacy. You can start this tomorrow, please take 1 tablet 4 times daily for 7 days. You can also take 1 Zofran every 8 hours as needed for nausea.
Interventions
Interventions:
*Risk Screen - Suicide Last Done: 03/12/24 09:30
*General Assessment Last Done: 03/12/24 09:30
*Neglect/Abuse Screening Last Done: 03/12/24 09:30
ED- Fall Risk Assessment Last Done: 03/12/24 09:30
*ED COVID-19 Vaccine History Last Done: 03/12/24 09:30
*Nursing Disposition Last Done: 03/12/24 12:50
JJ-Ezygsl-[id number] Assessment Last Done: 03/12/24 09:30
Discharge Date and Time
Discharge Date/Time: 03/12/24 12:52
Print Language: [place]ET[place]ESE
[2024-03-12 09:30] VITALS: BP 144/73; BMI 26.8
[2024-03-12 09:36] VITALS: BP 144/73
[2024-03-12 09:58] LABS: % Basophils 0.2 % (0-2); % Eosinophils 0.9 % (0-6); % Immature Granulocytes 0.4 % (0-0.5); % Lymphocytes 13.1 % (20.5-51.1); % Monocytes 7.6 % (1.7-9.3); % Neutrophils 77.8 % (42.2-75.2); Absolute Eosinophils 0.1 10^3/uL (0-0.7); Absolute Immature Granulocytes 0.1 10^3/uL (0-0.05); Absolute Lymphocytes 1.7 10^3/uL (1.2-3.4); Hematocrit 48.7 % (37.0-47.0); Hemoglobin 16.6 g/dL (12.0-16.0); Mean Corp Hgb Conc. 34.1 g/dL (33.0-37.0); Mean Corpuscular Hgb 32.7 pg (27.0-31.0); Mean Corpuscular Volume 95.9 fL (81.0-99.0); Nucleated Red Blood Cells % 0 %; Platelet Count 366 10^3/uL (130-400); Red Blood Cell Count 5.08 10^6/uL (4.20-5.40); Red Cell Dist. Width 13.2 % (11.5-14.5); White Blood Cell Count 12.9 10^3/uL (4.8-10.8)
[2024-03-12 10:00] VITALS: BP 103/75
[2024-03-12] MEDS: NSS 500 IV ×2 (10:00→11:52)
[2024-03-12 10:02] LABS: Urine Albumin Negative (Neg - Trace); Urine Bilirubin Negative (Negative); Urine Character Clear (Clear); Urine Color Yellow; Urine Glucose Negative (Negative); Urine Ketone Negative (Negative); Urine Leukocyte Trace (Negative); Urine Nitrite Negative (Negative); Urine Occult Blood Negative (Negative); Urine Urobilinogen Negative (Neg - 1+)
[2024-03-12 10:08] LABS: ALT (SGPT) 31 U/L (0-35); AST (SGOT) 32 U/L (14-36); Albumin 4.4 g/dl (3.5-5.0); Alkaline Phosphatase 105 U/L (38-126); Blood Urea Nitrogen 21 mg/dl (7-17); Calcium 10.5 mg/dl (8.4-10.2); Carbon Dioxide 25 mmol/L (22-30); Chloride 105 mmol/L (98-107); Estimated Creatinine Clearance 41 ml/min; Glucose 114 mg/dl (70-99); Sodium 143 mmol/L (135-145); Total Bilirubin 0.7 mg/dl (0.2-1.3); Total Protein 7.1 g/dl (6.3-8.2); eGFR 58.02
[2024-03-12 10:10] LABS: Lipase 147 U/L (23-300)
[2024-03-12] MEDS: ZOFRAN 4 MG IV (10:51)
[2024-03-12 11:00] VITALS: BP 118/78
[2024-03-12 12:11] LABS: Urine Urothelial Cell 0-2 /LPF (FEW)
[2024-03-12 12:12] LABS: Urine Bacteria Moderate (Negative); Urine Red Blood Cell 0-2 /HPF (0-2)
[2024-03-12 12:50] VITALS: BP 135/66
== END 2024-03-12 12:52 | disposition home or self-care (01) ==
LOC: EMR 09:16
PROVIDERS: Physician Assistant; EMERGENCY PHYSICIAN Emergency Medicine; FAMILY PHYSICIAN Internal Medicine
DX: L03.116 Cellulitis of left lower limb (principal); R19.7 Diarrhea, unspecified; R11.0 Nausea; I10 Essential (primary) hypertension; M79.7 Fibromyalgia
CPT/HCPCS: 99284; 96374; 96361; 80053; 81003; 81015; 83690; 85025; 87045; 87046; 87086; 87324; 87427; 87449

== ENCOUNTER 2024-06-26 14:37 | Emergency (ER) | payer MEDICARE, OTHER, SELFPAY ==
[2024-06-26 14:39] VITALS: BP 123/67
[2024-06-26 15:17] LABS: % Basophils 0.2 % (0-2); % Eosinophils 0.4 % (0-6); % Immature Granulocytes 0.3 % (0-0.5); % Lymphocytes 11.1 % (20.5-51.1); % Monocytes 8.8 % (1.7-9.3); % Neutrophils 79.2 % (42.2-75.2); Absolute Eosinophils 0.1 10^3/uL (0-0.7); Absolute Lymphocytes 1.4 10^3/uL (1.2-3.4); Absolute Monocytes 1.1 10^3/uL (0.1-0.6); Absolute Neutrophils 10.1 10^3/uL (1.4-6.5); Hemoglobin 14.2 g/dL (12.0-16.0); Mean Corp Hgb Conc. 33.8 g/dL (33.0-37.0); Mean Corpuscular Hgb 31.3 pg (27.0-31.0); Mean Corpuscular Volume 92.7 fL (81.0-99.0); Mean Platelet Volume 10.1 fL (7.4-10.4); Nucleated Red Blood Cells % 0 %; Platelet Count 218 10^3/uL (130-400); Red Blood Cell Count 4.53 10^6/uL (4.20-5.40); Red Cell Dist. Width 13.4 % (11.5-14.5); White Blood Cell Count 12.8 10^3/uL (4.8-10.8)
[2024-06-26 15:18] LABS: ALT (SGPT) 39 U/L (0-35); AST (SGOT) 46 U/L (14-36); Albumin 4.2 g/dl (3.5-5.0); Alkaline Phosphatase 222 U/L (38-126); Blood Urea Nitrogen 10 mg/dl (7-17); Calcium 9.9 mg/dl (8.4-10.2); Carbon Dioxide 25 mmol/L (22-30); Chloride 101 mmol/L (98-107); Glucose 115 mg/dl (70-99); Potassium 3.8 mmol/L (3.5-5.1); Sodium 140 mmol/L (135-145); Total Bilirubin 1.1 mg/dl (0.2-1.3); Total Protein 7.1 g/dl (6.3-8.2); eGFR > 60.00
--- NOTE | 2024-06-26 16:26 | ED.GENMED ---
History of Present Illness
General
Chief Complaint: Change in Mental Status
Time Seen by Provider: 06/26/24 16:26
History of Present Illness
History of Present Illness:
TIME OF INITIAL ENCOUNTER: 4:30 PM
HPI: Woke around 9a said good morning to , but first lengthy conversation at 10a - couldn't remember that nephew is getting next year or that they recently got wedding invitation. Thought she was to get a 'bone scan' today, but was
to get a mammogram. No other neuro concerns. This is acute and never had memory problems before. She reports some chronic pain related to fibromyalgia.
EXAM:
GENERAL: Well appearing in no distress
HEENT: Moist oral mucosa
CARDIOVASCULAR: No murmurs, normal heart rate, regular rhythm, No chest wall tenderness
PULMONARY: No respiratory distress, breath sounds are clear and equal
ABDOMEN: Soft with no peritoneal signs, no tenderness
NEUROLOGIC: Excellent strength all extremities, no coordination deficits, the patient seems to have trouble recalling recent events but knows it is June and can easily name objects
PSYCHIATRIC: Appropriate mental status, normal insight and judgement
EXTREMITIES: Nontender, no edema, moves all extremities equally
SKIN: No rash, no lesions
NUMBER AND COMPLEXITY OF PROBLEMS ADDRESSED AT THE ENCOUNTER
� Chronic conditions affecting care: High blood pressure
� Acute Exacerbation and/or Progression of Chronic Illness: This is an acute problem
� Differential Diagnosis includes: TGA, CVA, aphasia, highly doubt dementia as there is no report of recent memory issues
AMOUNT AND/OR COMPLEXITY OF DATA TO BE REVIEWED AND ANALYZED
� I performed an independent evaluation of and my interpretation is:
EKG: Sinus 92, normal axis, no acute ST normality
CT: CAT scan of the brain shows no acute abnormality
X-rays:
Laboratory Studies: White count 12.8, hemoglobin normal, chemistries relatively unremarkable with exception of minimal transaminase elevation alk phos of 222
Other:
� Review of other/old records: The patient was seen here with cellulitis in February
� Clinical information was obtained by an independent historian: I spoke to at bedside
� Prescriptions/Medications Considered but not given:
� Further testing considered but not performed:
RISK OF COMPLICATIONS AND/OR MORBIDITY OR MORTALITY OF PATIENT MANAGEMENT
� Social determinants of health affecting care: Lives at home with
� Discussion with other providers: I discussed case with Dr. Cardoso who recommends additional blood work and 'they can have an outpatient MRI, EEG'
� Escalation of care including admission/observation vs risk of discharge considered: See below
ANY OTHER UPDATES:
7:20 PM: Overall patient prefers to be managed as an outpatient as symptoms are relatively minor. Suspect TGA. CRP elevated but sed rate normal. Dr. Cardoso asked for CK level�this was negative. At Dr. Cardoso's recommendation, I told to
come back here if symptoms persist/worsen tomorrow.
Past History
Past History
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
ED Past Surgical History: Appendectomy, , Orthopedic (Shoulder surgery), Tonsilectomy and Other (Cataract surgery)
Social History
Personal:
Living: with family
Employment: Employed
Phy Exam
Physical Exam
Physical Exam:
See HPI
Course
Orders/Labs/Results
Orders:
Orders
06/26/24 14:41
Electrocardiogram (*1) Urgent
Reason for Study: Chest Pain
EKG- Treatment ONCE
06/26/24 14:51
C-Reactive Protein Urgent
Comment: ADDON
Complete Blood Count/With Diff Urgent
Comprehensive Metabolic Panel Urgent
Creatine Phosphokinase Urgent
Comment: ADD ON
Erythrocyte Sed Rate Urgent
Comment: ADDON
TSH Reflex To Free T4 Urgent
Comment: ADDON
Vitamin B12 Urgent
Comment: ADDON
06/26/24 14:53
CT Head W/o Iv Contrast Urgent
Comment:
Reason For Exam: ams
06/26/24 16:51
Add On- LAB Urgent
Tests Added?: TSH reflex fT4, B12, ESR, cRP
06/26/24 19:32
Add On- LAB Urgent
Tests Added?: CK
Abnormal Lab Results
06/26/24
14:51
WBC 12.8 H 10^3/uL
(4.8-10.8)
MCH 31.3 H pg
(27.0-31.0)
Absolute Neuts (auto) 10.1 H 10^3/uL
(1.4-6.5)
Absolute Monos (auto) 1.1 H 10^3/uL
(0.1-0.6)
Neutrophils % 79.2 H %
(42.2-75.2)
Lymphocytes % 11.1 L %
(20.5-51.1)
Glucose 115 H mg/dl
(70-99)
AST 46 H U/L
(14-36)
ALT 39 H U/L
(0-35)
Alkaline Phosphatase 222 H U/L
(38-126)
C-Reactive Protein 133.00 H mg/L
(0.0-10.00)
Vitamin B12 > 1000 H pg/ml
(239-931)
06/26/24 14:51
06/26/24 14:51
Vital Signs
Initial and Last Documented VS:
Initial Vital Signs
Temp Pulse Resp BP Pulse Ox
97.8 F 110 20 123/67 98
06/26/24 14:39 06/26/24 14:39 06/26/24 14:39 06/26/24 14:39 06/26/24 14:39
Last Documented Vital Signs
Temp Pulse Resp BP Pulse Ox
97.8 F 88 20 148/61 98
06/26/24 14:39 06/26/24 18:30 06/26/24 18:30 06/26/24 18:00 06/26/24 18:00
*Critical Care Note
Total Time (30-74mins, 75-104mins- exclusive of procedures): Not Applicable
ED Attending Note
-
Portions of this chart may have been created with voice recognition software.� Occasional wrong word or��sound alike� substitutions may have occurred due to the inherent limitations of voice recognition software.
Discharge Plan
Departure
Patient Disposition: Home (Routine Discharge)
Date of Disposition: 06/26/24
Time of Disposition: 19:26
Patient with high blood pressure during this ER visit?: Yes
Discharge Problem:
Transient global amnesia
Prescriptions:
No Action
cyanocobalamin (vitamin B-12) 1,000 mcg Tablet
1,000 mcg PO DAILY
acetaminophen [Tylenol Extra Strength] 500 mg Tablet
1,000 mg PO QIDPRN PRN (Reason: mild pain)
calcium carbonate 500 mg calcium (1,250 mg) Tablet
500 mg PO DAILY
nabumetone 500 mg Tablet
500 mg PO BIDPRN PRN (Reason: mild pain)
duloxetine [Cymbalta] 60 mg Capsule,Delayed Release(Dr/Ec)
60 mg PO HS
amlodipine-benazepril 5-40 mg Capsule
1 cap PO HS
cholecalciferol (vitamin D3) [Vitamin D3] 25 mcg (1,000 unit) Tablet
25 mcg PO QPM
colestipol [Colestid] 1 gram tablet
1 g PO BID Qty: 60 0RF
ondansetron HCl 4 mg tablet
4 mg PO BID PRN (Reason: nausea/vomiting)
ondansetron HCl 4 mg tablet
4 mg PO Q8HPRN PRN (Reason: nausea and vomiting) Qty: 12 0RF
cephalexin 500 mg capsule
500 mg PO QID 7 Days Qty: 28 0RF
ondansetron HCl 4 mg tablet
4 mg PO Q8H PRN (Reason: nausea and vomiting) Qty: 8 0RF
Referrals:
Felipe Lim CRNP [Family Provider] -
Arpit Cardoso MD [Active] - Next open appointment
Activity Restrictions/Additional Instructions:
The cause of your symptoms likely is related to a condition called 'transient global amnesia'. The brain CT showed no abnormality, sed rate was normal, electrolytes were unremarkable however an inflammatory marker called a C-reactive protein was
elevated at 133. Thyroid testing was normal, B12 level is normal. Please follow-up with your primary care doctor and return here if worse or other concerns. EKG shows a normal sinus rhythm.
Interventions
Interventions:
*Risk Screen - Suicide Last Done: 06/26/24 14:39
*General Assessment Last Done: 06/26/24 14:39
*Neglect/Abuse Screening Last Done: 06/26/24 14:39
ED- Fall Risk Assessment Last Done: 06/26/24 16:44
*ED COVID-19 Vaccine History Last Done: 06/26/24 16:44
ED- Pulmonary Assessment Last Done: 06/26/24 16:45
ED-Psychological Assessment Last Done: 06/26/24 16:45
ED- Neurological Assessment Last Done: 06/26/24 16:41
ED- Cardiac Assessment Last Done: 06/26/24 16:45
ED Swallowing Screen Last Done: 06/26/24 16:40
Discharge Date and Time
Print Language: [place]EN[place]
[2024-06-26 16:37] VITALS: BP 139/110
[2024-06-26 16:38] VITALS: BMI 22.0
[2024-06-26 17:00] VITALS: BP 138/60
[2024-06-26 18:00] VITALS: BP 148/61
[2024-06-26 18:08] LABS: Erythrocyte Sed Rate 20 mm/hour (0-20)
[2024-06-26 18:59] LABS: TSH Reflex To Free T4 1.74 uIU/ml (0.47-4.68)
[2024-06-26 19:00] VITALS: BP 119/81
[2024-06-26 19:18] LABS: Vitamin B12 > 1000 pg/ml (239-931)
[2024-06-26 19:50] LABS: Creatine Phosphokinase 41 U/L (30-135)
== END 2024-06-26 20:11 | disposition home or self-care (01) ==
LOC: EMR 14:37
PROVIDERS: EMERGENCY PHYSICIAN Emergency Medicine; FAMILY PHYSICIAN Nurse Practitioner Adult Health
DX: G45.4 Transient global amnesia (principal); M79.7 Fibromyalgia; I10 Essential (primary) hypertension; K58.9 Irritable bowel syndrome, unspecified; Z90.49 Acquired absence of other specified parts of digestive tract
CPT/HCPCS: 99284; 70450; 80053; 82550; 82607; 84443; 85025; 85652; 86140; 93005

== ENCOUNTER 2024-07-04 17:56 | Emergency (ER) | payer MEDICARE, OTHER, SELFPAY ==
[2024-07-04 17:59] VITALS: BP 138/88
--- NOTE | 2024-07-04 18:37 | ED.GENMED ---
History of Present Illness
General
Chief Complaint: DVT/Possible Blood Clot
Source: patient and spouse
Exam Limitations: none
Time Seen by Provider: 07/04/24 18:26
Nursing documentation reviewed up to this point in time: agreed with
History of Present Illness
History of Present Illness:
Patient to ED with complaint of left foot and ankle swelling. Symptoms started this afternoon. No history of trauma. Reports 'sciatic pain' to left buttocks and upper thigh but has had this in the past. Brought to ED by spouse for eval. Denies
fever/chills. No history of DVT
Past History
Past History
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
ED Past Surgical History: Appendectomy, , Orthopedic (Shoulder surgery), Tonsilectomy and Other (Cataract surgery)
Social History
Personal:
Living: with family
Employment: Employed
Review of Systems
Review of Systems
Allergies reviewed?: Yes
All Other Systems: ROS reviewed and negative except as documented in HPI and ROS
Constitutional: Reports no symptoms
EENT: Reports no symptoms
Respiratory: Reports no symptoms
Cardiac: Reports no symptoms
ABD/GI: Reports no symptoms
: Reports no symptoms
Musculoskeletal: Reports other (swelling to left foot and ankle)
Skin: Reports no symptoms
Neurological: Reports no symptoms
Psychiatric: Reports no symptoms
Phy Exam
General Physical Exam
General Presentation: well appearing and no apparent distress
General age: appears stated age
General Skin: warm and dry
General Habitus: normal
General Mental: alert
General Hydration: appears well hydrated
Cardiovascular Exam
Cardiovascular Exam: regular rate/rhythm
Musculoskeletal Exam
Musculoskeletal Exam: full ROM and neuro vasc intact
Skin Exam
Skin Exam: normal color, warm/dry, no rash and other (NO erythema, no wounds LLE)
Psychiatric Exam
Psychiatric Exam: normal mood/affect
Course
Orders/Labs/Results
Orders:
Orders
07/04/24 18:33
US Periph Venous LOWER Ext LT Urgent
Comment:
Reason For Exam: leg pain and swelling
07/04/24 18:40
Ankle, left 3 view CR [CR Ankle - Left Min 3 Views ] Urgent
Comment:
Reason For Exam: swelling
Foot, Left 3 View [CR Foot - Left Min 3 Views] Urgent
Comment:
Reason For Exam: swelling
07/04/24 19:34
Complete Blood Count/With Diff Urgent
Comprehensive Metabolic Panel Urgent
07/04/24 20:53
Apixaban [Eliquis] 10 mg PO NOW STA
Abnormal Lab Results
07/04/24
19:34
WBC 12.5 H 10^3/uL
(4.8-10.8)
MCHC 32.1 L g/dL
(33.0-37.0)
Abs Immat Gran (auto) 0.1 H 10^3/uL
(0-0.05)
Absolute Neuts (auto) 9.6 H 10^3/uL
(1.4-6.5)
Absolute Monos (auto) 1.2 H 10^3/uL
(0.1-0.6)
Immature Gran % 0.6 H %
(0-0.5)
Neutrophils % 76.8 H %
(42.2-75.2)
Lymphocytes % 12.1 L %
(20.5-51.1)
Glucose 166 H mg/dl
(70-99)
Alkaline Phosphatase 277 H U/L
(38-126)
Total Protein 6.1 L g/dl
(6.3-8.2)
Albumin 3.4 L g/dl
(3.5-5.0)
07/04/24 19:34
07/04/24 19:34
Vital Signs
Initial and Last Documented VS:
Initial Vital Signs
Temp Pulse Resp BP Pulse Ox
97.8 F 109 18 138/88 99
07/04/24 17:59 07/04/24 17:59 07/04/24 17:59 07/04/24 17:59 07/04/24 17:59
Last Documented Vital Signs
Temp Pulse Resp BP Pulse Ox
97.8 F 109 18 138/88 99
07/04/24 17:59 07/04/24 17:59 07/04/24 17:59 07/04/24 17:59 07/04/24 17:59
MDM/Problems Addressed
Differential Diagnosis Includes:
Patient to ED wtih complaint of pain and swelling to LLE. Symptoms noted today. Denies fever/chills, recent illness. US completed- +DVT. Christian started in dept. Discussed US findings with patient and spouse. Request that she stop Relafen.
SHe will follow up with PCP in AM. Given instrucgtions on s/s to return to ED.
*Radiology
Radiology exam reviewed: radiology read reviewed
*Pulse Oximetry
Patient hypoxic: no
*Critical Care Note
Total Time (30-74mins, 75-104mins- exclusive of procedures): Not Applicable
ED Attending Note
-
Portions of this chart may have been created with voice recognition software.� Occasional wrong word or��sound alike� substitutions may have occurred due to the inherent limitations of voice recognition software.
Discharge Plan
Departure
Patient Disposition: Home (Routine Discharge)
Date of Disposition: 07/04/24
Time of Disposition: 20:56
Patient with high blood pressure during this ER visit?: No
Condition: Good
Covid-19: Not Applicable
Discharge Problem:
DVT of lower extremity (deep venous thrombosis)
Instructions: Deep Vein Thrombosis (Blood Clots in the Legs) (DC)
Prescriptions:
New
Eliquis DVT-PE Treat 30D Start 5 mg (74 tabs) tablets,dose pack
See Rx Instructions .ROUTE .COMPLEX Qty: 74 0RF
Rx Instructions:
orally per package directions
No Action
cyanocobalamin (vitamin B-12) 1,000 mcg Tablet
1,000 mcg PO DAILY
acetaminophen [Tylenol Extra Strength] 500 mg Tablet
1,000 mg PO QIDPRN PRN (Reason: mild pain)
calcium carbonate 500 mg calcium (1,250 mg) Tablet
500 mg PO DAILY
nabumetone 500 mg Tablet
500 mg PO BIDPRN PRN (Reason: mild pain)
duloxetine [Cymbalta] 60 mg Capsule,Delayed Release(Dr/Ec)
60 mg PO HS
amlodipine-benazepril 5-40 mg Capsule
1 cap PO HS
cholecalciferol (vitamin D3) [Vitamin D3] 25 mcg (1,000 unit) Tablet
25 mcg PO QPM
colestipol [Colestid] 1 gram tablet
1 g PO BID Qty: 60 0RF
ondansetron HCl 4 mg tablet
4 mg PO BID PRN (Reason: nausea/vomiting)
ondansetron HCl 4 mg tablet
4 mg PO Q8HPRN PRN (Reason: nausea and vomiting) Qty: 12 0RF
cephalexin 500 mg capsule
500 mg PO QID 7 Days Qty: 28 0RF
ondansetron HCl 4 mg tablet
4 mg PO Q8H PRN (Reason: nausea and vomiting) Qty: 8 0RF
Referrals:
Edvin Pitts MD [Family Provider] - Tomorrow
Activity Restrictions/Additional Instructions:
Stop Relafen (nabumetone). Return to the emergency department immediately for any chest pain or difficulty breathing.
Interventions
Interventions:
*Risk Screen - Suicide Last Done: 07/04/24 17:59
*General Assessment Last Done: 07/04/24 17:59
*Neglect/Abuse Screening Last Done: 07/04/24 17:59
ED- Fall Risk Assessment Last Done: 07/04/24 19:25
*ED COVID-19 Vaccine History Last Done: 07/04/24 17:59
ED- Cardiac Assessment Last Done: 07/04/24 19:25
ED- Pulmonary Assessment Last Done: 07/04/24 19:25
ED-Peripheral Vascular Assessment Last Done: 07/04/24 19:25
ED-Skin Assessment Last Done: 07/04/24 19:25
Discharge Date and Time
Print Language: [place]
[2024-07-04 19:25] VITALS: BMI 24.2
[2024-07-04 19:41] LABS: % Basophils 0.2 % (0-2); % Immature Granulocytes 0.6 % (0-0.5); % Lymphocytes 12.1 % (20.5-51.1); % Monocytes 9.3 % (1.7-9.3); % Neutrophils 76.8 % (42.2-75.2); Absolute Eosinophils 0.1 10^3/uL (0-0.7); Absolute Immature Granulocytes 0.1 10^3/uL (0-0.05); Absolute Lymphocytes 1.5 10^3/uL (1.2-3.4); Absolute Monocytes 1.2 10^3/uL (0.1-0.6); Absolute Neutrophils 9.6 10^3/uL (1.4-6.5); Hematocrit 42.1 % (37.0-47.0); Hemoglobin 13.5 g/dL (12.0-16.0); Mean Corp Hgb Conc. 32.1 g/dL (33.0-37.0); Mean Corpuscular Hgb 30.3 pg (27.0-31.0); Mean Corpuscular Volume 94.4 fL (81.0-99.0); Mean Platelet Volume 9.9 fL (7.4-10.4); Nucleated Red Blood Cells % 0 %; Platelet Count 226 10^3/uL (130-400); Red Blood Cell Count 4.46 10^6/uL (4.20-5.40); Red Cell Dist. Width 13.7 % (11.5-14.5); White Blood Cell Count 12.5 10^3/uL (4.8-10.8)
[2024-07-04 19:58] LABS: ALT (SGPT) 20 U/L (0-35); AST (SGOT) 27 U/L (14-36); Albumin 3.4 g/dl (3.5-5.0); Alkaline Phosphatase 277 U/L (38-126); Blood Urea Nitrogen 7 mg/dl (7-17); Calcium 9.7 mg/dl (8.4-10.2); Carbon Dioxide 30 mmol/L (22-30); Chloride 104 mmol/L (98-107); Estimated Creatinine Clearance 71 ml/min; Glucose 166 mg/dl (70-99); Potassium 3.5 mmol/L (3.5-5.1); Sodium 143 mmol/L (135-145); Total Bilirubin 0.4 mg/dl (0.2-1.3); Total Protein 6.1 g/dl (6.3-8.2); eGFR > 60.00
[2024-07-04] MEDS: ELIQUIS 10 MG PO (21:04)
[2024-07-04 21:29] VITALS: BP 160/86
== END 2024-07-04 21:43 | disposition home or self-care (01) ==
LOC: EMR 17:56
PROVIDERS: Nurse Practitioner; EMERGENCY PHYSICIAN Emergency Medicine; FAMILY PHYSICIAN Internal Medicine
DX: I82.402 Acute embolism and thrombosis of unspecified deep veins of left lower extremity (principal); M79.7 Fibromyalgia; I10 Essential (primary) hypertension; K58.9 Irritable bowel syndrome, unspecified; Z79.01 Long term (current) use of anticoagulants; Z90.49 Acquired absence of other specified parts of digestive tract
CPT/HCPCS: 99284; 73610; 73630; 80053; 85025; 93971

== ENCOUNTER → 2024-07-09 15:04 | Outpatient (REF) | payer MEDICARE, OTHER, SELFPAY | LOC: RAD 15:04 | PROVIDERS: ATTENDING PHYSICIAN Nurse Practitioner Adult Health | DX: L03.90 Cellulitis, unspecified (principal) | CPT/HCPCS: 73610 ==

== ENCOUNTER 2024-07-21 22:33 | Inpatient (IN) | payer MEDICARE, OTHER, SELFPAY ==
[2024-07-21] VITALS (8 sets, daily range): BP systolic 90–110; BP diastolic 44–69; BMI 23.0
[2024-07-21 15:10] LABS: % Basophils 0.2 % (0-2); % Eosinophils 0.2 % (0-6); % Immature Granulocytes 0.4 % (0-0.5); % Lymphocytes 13.6 % (20.5-51.1); % Monocytes 3.7 % (1.7-9.3); % Neutrophils 81.9 % (42.2-75.2); Absolute Lymphocytes 1.4 10^3/uL (1.2-3.4); Absolute Monocytes 0.4 10^3/uL (0.1-0.6); Absolute Neutrophils 8.6 10^3/uL (1.4-6.5); Hematocrit 42.5 % (37.0-47.0); Hemoglobin 13.7 g/dL (12.0-16.0); Mean Corp Hgb Conc. 32.2 g/dL (33.0-37.0); Mean Corpuscular Hgb 30.4 pg (27.0-31.0); Mean Corpuscular Volume 94.2 fL (81.0-99.0); Mean Platelet Volume 10.1 fL (7.4-10.4); Nucleated Red Blood Cells % 0 %; Platelet Count 369 10^3/uL (130-400); Red Blood Cell Count 4.51 10^6/uL (4.20-5.40); Red Cell Dist. Width 15.6 % (11.5-14.5); White Blood Cell Count 10.5 10^3/uL (4.8-10.8)
[2024-07-21 15:28] LABS: ALT (SGPT) 37 U/L (0-35); AST (SGOT) 67 U/L (14-36); Albumin 3.2 g/dl (3.5-5.0); Alkaline Phosphatase 364 U/L (38-126); Blood Urea Nitrogen 18 mg/dl (7-17); Calcium 9.1 mg/dl (8.4-10.2); Carbon Dioxide 27 mmol/L (22-30); Chloride 109 mmol/L (98-107); Glucose 163 mg/dl (70-99); Potassium 2.9 mmol/L (3.5-5.1); Sodium 147 mmol/L (135-145); Total Bilirubin 0.7 mg/dl (0.2-1.3); Total Protein 5.8 g/dl (6.3-8.2); eGFR 46.62
--- NOTE | 2024-07-21 17:00 | ED.GENMED ---
History of Present Illness
General
Chief Complaint: Weakness
Time Seen by Provider: 07/21/24 16:08
History of Present Illness
History of Present Illness:
79-year-old female with history of fibromyalgia, DVT on Eliquis presenting to the emergency department for generalized weakness and fatigue. Patient reports overall poor p.o. intake in the past month. She is not hungry and does not like the way
that food tastes, so has lost a significant amount of weight. at bedside notes particularly today, he could not get her up to walk and patient herself could not walk. Patient is feeling weak, fatigued. Denies focal weakness. Denies any
recent fall or injury. Denies urinary complaints. Denies fever or recent infection. Denies chest pain or difficulty breathing. Denies any abdominal pain. Patient notes history of dehydration in the past. Denies additional acute medical
complaints
Past History
Past History
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
ED Past Surgical History: Appendectomy, , Orthopedic (Shoulder surgery), Tonsilectomy and Other (Cataract surgery)
Social History
Personal:
Living: with family
Employment: Employed
Phy Exam
Physical Exam
Physical Exam:
General: Dry mucous membrane, otherwise nontoxic
HEENT: protecting airway
Neck: appears supple
CV: Normal heart rate, regular rhythm, no evidence of cyanosis
Resp: No accessory muscle use, no increased work of breathing, lungs clear to auscultation bilaterally
Abd: Soft and non-distended, no tenderness to palpation, normal bowel sounds
Extremities: No deformities, no swelling, no erythema
Neuro: alert, no focal neurologic deficit
: deferred
Rectal: deferred
Psych: Normal affect
Skin: Intact
Course
Orders/Labs/Results
Orders:
Orders
12/02/24 14:44
Electrocardiogram (*1) Urgent
Reason for Study: Fatigue / Weakness
EKG- Treatment ONCE
07/21/24 14:54
Complete Blood Count/With Diff Urgent
Comprehensive Metabolic Panel Urgent
07/21/24 16:46
Electrocardiogram (*1) Urgent
Reason for Study: Other
Other Reason for Exam: weakness
EKG- Treatment ONCE
Urinalysis Reflex To Culture Urgent
0.9% Sodium Chloride 1000 ml [Nss] 1,000 ml IV BOLUS
07/21/24 17:08
COVID-19 Antigen Urgent
Source: Nasal Swab
07/21/24 19:02
Acetaminophen [Tylenol] 1,000 mg PO NOW STA
Abnormal Lab Results
07/21/24
14:54
MCHC 32.2 L g/dL
(33.0-37.0)
RDW 15.6 H %
(11.5-14.5)
Absolute Neuts (auto) 8.6 H 10^3/uL
(1.4-6.5)
Neutrophils % 81.9 H %
(42.2-75.2)
Lymphocytes % 13.6 L %
(20.5-51.1)
Sodium 147 H mmol/L
(135-145)
Potassium 2.9 L mmol/L
(3.5-5.1)
Chloride 109 H mmol/L
(98-107)
BUN 18 H mg/dl
(7-17)
Creatinine 1.2 H mg/dL
(0.6-1.0)
Glucose 163 H mg/dl
(70-99)
AST 67 H U/L
(14-36)
ALT 37 H U/L
(0-35)
Alkaline Phosphatase 364 H U/L
(38-126)
Total Protein 5.8 L g/dl
(6.3-8.2)
Albumin 3.2 L g/dl
(3.5-5.0)
07/21/24 14:54
07/21/24 14:54
Vital Signs
Initial and Last Documented VS:
Initial Vital Signs
Temp Pulse Resp BP Pulse Ox
97.6 F 95 18 106/59 95
07/21/24 14:40 07/21/24 14:40 07/21/24 14:40 07/21/24 14:40 07/21/24 14:40
Last Documented Vital Signs
Temp Pulse Resp BP Pulse Ox
97.6 F 88 13 101/67 100
07/21/24 14:40 07/21/24 16:30 07/21/24 16:30 07/21/24 16:10 07/21/24 17:05
MDM/Problems Addressed
MDM/Problems Addressed:
79-year-old female with history of fibromyalgia presenting to the emergency department for generalized weakness. Vital signs on are normal.
On exam, patient is resting comfortably, no acute distress. She does have some dry mucous membranes. Concern for acute dehydration. No focal neurologic deficits. Unremarkable cardiac and pulmonary exam. Patient is moving all extremities
equally, however notes that she is unable to ambulate due to her weakness. Will start IV fluids and screening with electrolyte panel, as well as urinalysis. EKG obtained, nonischemic.
20:30 - Labs show hypernatremia, OSCAR, consistent with acute dehydration. While trying to obtain urine specimen, patient had a bowel movement, noted to be bloody, heme positive. Hemoglobin stable, however could be contributing to patient's symptoms
and dehydration. Patient unable to ambulate at this time given her weakness and fatigue. Plan for admission for continued IV fluids and hemodynamic monitoring, as well as PT/OT consultation
*EKG
Interpreted by ED Provider?: Yes
EKG Intrepretation Date: 07/21/24
EKG Intrepretation Time: 17:05
Interpretation: normal
Comparison EKG: no changes (06/26/24)
Heart Rate: 96
Rate: normal
Rhythm: sinus
[place]: normal axis
Interval: normal interval
QRS Pattern: normal QRS
Ischemia: no ischemia
*Critical Care Note
Total Time (30-74mins, 75-104mins- exclusive of procedures): Not Applicable
ED Attending Note
-
Portions of this chart may have been created with voice recognition software.� Occasional wrong word or��sound alike� substitutions may have occurred due to the inherent limitations of voice recognition software.
Discharge Plan
Departure
Prescriptions:
No Action
cyanocobalamin (vitamin B-12) 1,000 mcg Tablet
1,000 mcg PO DAILY
acetaminophen [Tylenol Extra Strength] 500 mg Tablet
1,000 mg PO QIDPRN PRN (Reason: mild pain)
calcium carbonate 500 mg calcium (1,250 mg) Tablet
500 mg PO DAILY
nabumetone 500 mg Tablet
500 mg PO BIDPRN PRN (Reason: mild pain)
duloxetine [Cymbalta] 60 mg Capsule,Delayed Release(Dr/Ec)
60 mg PO HS
amlodipine-benazepril 5-40 mg Capsule
1 cap PO HS
cholecalciferol (vitamin D3) [Vitamin D3] 25 mcg (1,000 unit) Tablet
25 mcg PO QPM
colestipol [Colestid] 1 gram tablet
1 g PO BID Qty: 60 0RF
ondansetron HCl 4 mg tablet
4 mg PO BID PRN (Reason: nausea/vomiting)
ondansetron HCl 4 mg tablet
4 mg PO Q8HPRN PRN (Reason: nausea and vomiting) Qty: 12 0RF
cephalexin 500 mg capsule
500 mg PO QID 7 Days Qty: 28 0RF
ondansetron HCl 4 mg tablet
4 mg PO Q8H PRN (Reason: nausea and vomiting) Qty: 8 0RF
Eliquis DVT-PE Treat 30D Start 5 mg (74 tabs) tablets,dose pack
See Rx Instructions .ROUTE .COMPLEX Qty: 74 0RF
Rx Instructions:
orally per package directions
prochlorperazine maleate [Compazine] 10 mg tablet
10 mg PO TID PRN (Reason: nausea and vomiting) Qty: 12 0RF
Referrals:
Edvin Pitts MD [Family Provider] -
Interventions
Interventions:
*Risk Screen - Suicide Last Done: 07/21/24 14:40
*General Assessment Last Done: 07/21/24 17:05
*Neglect/Abuse Screening Last Done: 07/21/24 14:40
ED- Fall Risk Assessment Last Done: 07/21/24 17:05
*ED COVID-19 Vaccine History Last Done: 07/21/24 17:05
ED- Cardiac Assessment Last Done: 07/21/24 17:05
ED- Neurological Assessment Last Done: 07/21/24 17:05
ED- Pulmonary Assessment Last Done: 07/21/24 17:05
Discharge Date and Time
Print Language: [place]
[2024-07-21] MEDS: NSS 1000 IV (17:10)
[2024-07-21 17:54] LABS: COVID-19 Antigen Negative (Negative)
[2024-07-21] MEDS: TYLENOL 1000 MG PO (19:47)
[2024-07-21] MEDS: KCL 270 MEQ IV (20:55)
--- NOTE | 2024-07-21 20:55 | HPS.HSE ---
Addendum entered and electronically signed by Galileo Leavitt DO 07/21/24 23:42:
Patient seen and examined independently. Agree with findings and plan as set forth by CHANEL Shaver.
Patient is a 79y F with PMH significant for hypertension, fibromyalgia and DVT on Eliquis who presents to [facility] ED complaining of general weakness, fatigue and decreased appetite. Patient tells me that her symptoms have been going on 'for about a
year'. Patient was recently diagnosed with LLE DVT (07/04/24). She was started on Eliquis at that time. Patient denies any N/V/D.
Ass:
Dehydration
Hypokalemia
OSCAR secondary to the above
Heme Positive Stool
Weakness / Fatigue secondary to the above
Abnormal LFTs
Benign Hypertension
LLE DVT on Eliquis
Plan:
Admit for further evaluation and treatment.
IVF support / correct electrolytes overnight.
Hold antihypertensive medications.
Heme positive stool noted in the ED - though no significant anemia / etc.
Hold Eliquis acutely - though would resume this KATHY given recent DVT diagnosis
Gi evaluation for additional recommendations.
PT / OT / Nutrition evals.
Original Note:
Family Physician
-
Family Physician: Marc Pitts
Chief Complaint
-
generalized weakness
History of Present Illness
79-year-old female with history of fibromyalgia, hypertension, vertigo,DVT on Eliquis presenting to the emergency department for generalized weakness and fatigue. Today morning she was not able to walk or get up from bed. For past few weeks she is
progressively getting worse but for past 2 to 3 days patient was very weak and was having trouble with any activity. Patient stated poor appetite and decreased oral intake, which is also progressively getting worse. Patient denied any headache,
dizziness, syncope. Patient denied any fever, chills, chest pain, short of breath. Patient denied any abdominal pain, nausea, vomiting or diarrhea. Patient denied dysuria hematuria. She was diagnosed with DVT on her left lower extremities 2 to 3
weeks ago. She is on Eliquis. As per she lost significant amount of weight.
Her colonoscopy was several years ago. She is supposed to follow-up with hematology as an outpatient for DVT.
Upon arrival to the ER, she had a large dark BM heme positive. Admitting for further management
Medical History
Past Medical History
Past Medical History: Reports Other
Additional Past Medical History:
Osteoporosis
Fibromyalgia
Hypertension
Transaminitis
Vertigo
Fatty liver disease
Sleep apnea
Carpal tunnel
Past Surgical History: Reports Other
Additional Past Surgical History:
Tonsillectomy
Catheter removal
Surgery
Right shoulder repair
Cholecystectomy
TMJ procedure
Social History
Tobacco: Non-smoker
Alcohol: None
Drug: None
Personal:
Living: With Family
Family History
Family History: Not pertinent
Allergies / Home Medications
Allergies reflects when Allergies were last updated in [facility].
Home Medications with original date entered in [facility]
Allergy/Medication List:
Allergies
Allergy/AdvReac Type Severity Reaction Status Date / Time
alendronate sodium Allergy debilitating Verified 07/21/24 14:43
[From Fosamax] joint pain
oxycodone [Oxycodone] Allergy Pt states Verified 07/21/24 14:43
if taken
with
antiemetic
she is
able to
tolerate.
Home Medications
acetaminophen 500 mg tablet (Tylenol Extra Strength) 1,000 mg PO QIDPRN PRN mild pain 12/20/23
amlodipine 5 mg-benazepril 40 mg capsule 1 cap PO HS Blood Pressure 12/20/23
apixaban 5 mg tablet (Eliquis) 5 mg PO BID 07/21/24
colestipol 1 gram tablet (Colestid) 1 g PO TID 07/21/24
dimenhydrinate 50 mg tablet (Dramamine) 50 mg PO Q8HPRN PRN vertigo 07/21/24
prochlorperazine maleate 10 mg tablet (Compazine) 10 mg PO Q6HPRN PRN nausea and vomiting 07/21/24
Review of Systems
-
Constitutional: Reports Weight Loss and Fatigue
EENT: Reports No Symptoms
Respiratory: Reports No Symptoms
Cardiac: Reports No Symptoms
Abdomen/GI: Reports No Symptoms
: Reports No Symptoms
Musculoskeletal: Reports No Symptoms
Skin: Reports No Symptoms
Neurological: Reports Weakness
Endocrine: Reports No Symptoms
Hematologic/Lymphatic: Reports No Symptoms
Psych: Reports No Symptoms
Physical Exam
Vital Signs
Vital Signs
Temp Pulse Resp BP Pulse Ox
97.6 F 91 18 102/55 100
07/21/24 14:40 07/21/24 20:45 07/21/24 20:45 07/21/24 20:00 07/21/24 18:00
Physical Exam
General: Well Developed, Well Nourished and No Apparent Distress
HEENT: NormoCephalic, Moist mucous membranes and Atraumatic
Respiratory: Clear
Cardiac: S1/S2 and Regular Rhythm; No Murmur or Rub
GI: Soft, Non Tender, Non Distended and Normal Bowel Sounds; No Organomegaly
Rectal: Deferred by Provider
Musculoskeletal: No Clubbing, No Cyanosis and No Edema
Skin: No Rash
Neuro: Nonfocal/grossly intact
Psych: Calm
Laboratory Results
-
07/21/24 14:54
07/21/24 14:54
Laboratory Results
Total Bilirubin 0.7 mg/dl (0.2-1.3) 07/21/24 14:54
AST 67 U/L (14-36) H 07/21/24 14:54
ALT 37 U/L (0-35) H 07/21/24 14:54
Alkaline Phosphatase 364 U/L (38-126) H 07/21/24 14:54
Data Reviewed
-
Lab Data: Labs Reviewed by me
Impression/Plan
-
# Generalized weakness/fatigue likely from poor oral intake
-PT/OT consult
# GI bleed likely due to Eliquis
-Heme positive
-Trend hemoglobin, transfuse if hemoglobin less than 7
-Hemoglobin stable at 13.7
-N.p.o.
-IV PPI
-GI consult
# Hypernatremia likely from dehydration
# Hypokalemia likely from oral poor intake
# Acute kidney injury likely from dehydration
-Sodium 147, potassium 2.9, creatinine 1.2
-Potassium KCl in ER
-Received normal saline in ER
-BMP in a.m.
-
# Transaminitis likely chronic
-AST 67, ALT 37, ALK 364
-Continue to monitor
# History of hypertension
-BP soft in ER
-Hold all antihypertensives
-Monitor vital signs
# DVT of left lower extremities
-Hold Eliquis
# Hyperlipidemia
-Colestipol continued
# Chronic low back pain
-Tylenol prn for pain
#DVT prophylaxis
-scd
#CODE status
-full code
[2024-07-21 22:17] LABS: Magnesium 2.3 mg/dl (1.6-2.3)
[2024-07-22] VITALS (13 sets, daily range): BP systolic 59–142; BP diastolic 38–114; PULSE 96–113; O2SAT 98; BMI 23.0
[2024-07-22 00:12] LABS: Hematocrit 37.1 % (37.0-47.0)
[2024-07-22 02:35] LABS: Urine Albumin Trace (Neg - Trace); Urine Bilirubin Negative (Negative); Urine Character Slightly Cloudy (Clear); Urine Color Yellow; Urine Glucose Negative (Negative); Urine Ketone Negative (Negative); Urine Leukocyte 2+ (Negative); Urine Nitrite Positive (Negative); Urine Occult Blood 3+ (Negative); Urine Urobilinogen Negative (Neg - 1+)
[2024-07-22] MEDS: KCL 1029.25 MEQ IV ×2 (02:52)
[2024-07-22] MEDS: FLUSH (NSS) 1 FLUSH IV (03:01)
[2024-07-22 04:16] LABS: Urine White Cell >100 /HPF (0-5)
[2024-07-22 04:17] LABS: Urine Bacteria Moderate (Negative)
[2024-07-22] MEDS: TYLENOL 650 MG PO ×3 (04:23→22:50)
[2024-07-22 04:54] LABS: Hematocrit 38.9 % (37.0-47.0); Hemoglobin 12.6 g/dL (12.0-16.0); Mean Corp Hgb Conc. 32.4 g/dL (33.0-37.0); Mean Corpuscular Volume 95.8 fL (81.0-99.0); Mean Platelet Volume 10.3 fL (7.4-10.4); Platelet Count 334 10^3/uL (130-400); Red Blood Cell Count 4.06 10^6/uL (4.20-5.40); White Blood Cell Count 13.9 10^3/uL (4.8-10.8)
[2024-07-22 05:19] LABS: Blood Urea Nitrogen 18 mg/dl (7-17); Calcium 8.6 mg/dl (8.4-10.2); Carbon Dioxide 21 mmol/L (22-30); Chloride 119 mmol/L (98-107); Estimated Creatinine Clearance 39 ml/min; Glucose 130 mg/dl (70-99); Potassium 3.2 mmol/L (3.5-5.1); Sodium 153 mmol/L (135-145); eGFR 51.75
[2024-07-22] MEDS: PROTONIX IV 40 MG IV (07:47)
[2024-07-22] MEDS: NSS (PRESERVATIVE FREE) 10 ML IV (07:48)
[2024-07-22] MEDS: ROCEPHIN 1000 MG IV (07:48)
[2024-07-22] MEDS: KCL 1010 MEQ IV (08:19)
--- NOTE | 2024-07-22 08:21 | EDRN ---
1/ NSS + 20 KCL stopped per . Patient receiving D5W + 20 meQ KCL at 70 ml/HR as ordered.
--- NOTE | 2024-07-22 08:28 | CON.GI ---
Addendum entered and electronically signed by Latrell Arredondo MD 07/22/24 10:49:
Patient seen and examined, agree with nurse practitioner note. Patient is a 79-year-old female with medical history as noted who presents with increasing weakness and fatigue. Per the patient and her daughter over the last year she has been having
symptoms of decreased appetite and weight loss though has gotten worse over the past couple of weeks suspect the past few days. She is lost about 18 pounds over the past 4 months. She denies any specific abdominal pain though does have some early
satiety and decreased appetite. She was recently diagnosed with a new DVT and started on Eliquis. She did have a dark bowel movement yesterday, and per the daughter her stools have been occasionally dark intermittently, though hemoglobin has been
essentially normal. Her last colonoscopy in [address] Mariano showed diverticulosis though otherwise was unremarkable. She has had mildly elevated LFTs in the past with dilated ducts noted on imaging and was post to have an MRI though did not
follow-up yet to complete this. On admission she was found to have hyponatremia with sodium of 153, potassium 3.2 along with acute kidney injury with elevated creatinine. Given the constellation of symptoms of new DVT, weight loss etc. worry for
possible underlying malignancy. At this point we will continue supportive care and correct electrolyte abnormality and renal insufficiency. After this would plan probable MRI with and without contrast with MRCP given elevated LFTs and dilated
ducts. Is unclear if dark stools were significant bleeding or not, though will continue PPI and observation for now, with eventual probable EGD and possible colonoscopy pending clinical course.
Original Note:
Consultation
-
Date/Time Consultation Requested: 07/21/24 5209
Date/Time Consultation Performed: 07/22/24 26
Requesting Provider: CHANEL Shaver
Performing Provider: Dr. Arredondo/CHANEL Molina
Reason for Consultation: GI Bleed
Medical History
Chief Complaint / HPI
Chief Complaint: weakness and fatigue
History of Present Illness:
79 yo F with past medical history fibromyalgia, hypertension, perforated eardrum treated with plasma patch with subsequent vertigo, DVT on Eliquis, osteoporosis, hypertension, transaminitis, fatty liver, obstructive sleep apnea, E. coli bacteremia
secondary to UTI, diarrhea secondary to Shiga toxin in the past, prior history of chronic diarrhea thought to be secondary to postcholecystectomy who presents to the emergency room with generalized weakness and fatigue for the past 2 to 3 days. She
is also had poor appetite as well as decreased oral intake. Recently diagnosed with DVT in left lower extremity 2 to 3 weeks ago started on Eliquis. Per family has lost significant amount of weight. Last evening while trying to obtain urine
specimen patient had a bowel movement and noted to be large dark and heme positive. Hemoglobin was stable. Asked to evaluate for the same. Patient's arrival hemoglobin was 13.7. Patient was given IV fluids and this morning was 12.6. She has had
no further bleeding since. The patient states that she has had significant weakness for the past couple months. She has also had decreased appetite for the past couple months as well. She has had early satiety for the past 2 months however she
has been able to eat. She has no pain with eating. She has lost approximately 18 pounds as per hospital records in the past 4 months. She has lost 5 pounds in the past 1 month per hospital records. She was supposed to see hematology today as an
outpatient for workup for her DVT. She does have a history of chronic pain for history of fibromyalgia. She takes approximately 3 g of Tylenol daily. She was supposed to have a colonoscopy in June but had to cancel this. She also has mildly
intermittent elevated transaminases. PCP had ordered MRI MRCP in December that patient did not have completed as well. Patient currently denies any fevers, chills, nausea, vomiting, melena, hematochezia, dysphagia or odynophagia, pruritus, acholic
stools or bilirubinuria. She does have chronic loose stools and takes colestipol for this. She has for years since her cholecystectomy. This bowel habit has not changed. She did have episode of blood with bowel movement last night in the ER.
She did not have any of this prior. She has not had any since. Eliquis is on hold. WBC 13.9, hemoglobin 12.6, hematocrit 38.9, platelets 334, MCV 95.8, MCH 31.0, , Sodium 153, potassium 3.2, chloride 119, CO2 21, BUN 18, creatinine 1.1, glucose
130, iron studies pending, total bilirubin 0.7, AST 67, ALT 37, alk phos 364, albumin 3.2 UA positive for occult blood, positive nitrates, 2+ leukocytes with greater than 100 WBC, moderate bacteria, COVID-negative
Past Medical History
Past Medical History: HTN
Past Surgical History: Appendectomy, Cholecystectomy, , Orthopedic (shoulder surgery), Tonsilectomy and Other (cataract)
Social History
Tobacco: Non-Smoker
Alcohol: None
Drug: None
Personal:
Living: With Family
Family History
Family History: Reviewed & Not Pertinent
Allergies / Home Medications
Allergy/AdvReac Type Severity Reaction Status Date / Time
alendronate sodium Allergy debilitating Verified 07/21/24 14:43
[From Fosamax] joint pain
oxycodone [Oxycodone] Allergy Pt states Verified 07/21/24 14:43
if taken
with
antiemetic
she is
able to
tolerate.
�Medication �Instructions �Recorded
acetaminophen 500 mg tablet 1,000 mg PO QIDPRN PRN mild pain 12/20/23
(Tylenol Extra Strength)
amlodipine 5 mg-benazepril 40 mg 1 cap PO HS Blood Pressure 12/20/23
capsule
apixaban 5 mg tablet (Eliquis) 5 mg PO BID 07/21/24
colestipol 1 gram tablet (Colestid) 1 g PO TID 07/21/24
dimenhydrinate 50 mg tablet 50 mg PO Q8HPRN PRN vertigo 07/21/24
(Dramamine)
prochlorperazine maleate 10 mg 10 mg PO Q6HPRN PRN nausea and 07/21/24
tablet (Compazine) vomiting
Review of Systems
-
All other systems: A 12 pt ROS was Negative except as stated above in HPI
Vital Signs
Temp Pulse Resp BP Pulse Ox
97.8 F 102 18 119/57 99
07/22/24 07:28 07/22/24 07:28 07/22/24 07:28 07/22/24 07:28 07/22/24 07:28
Physical Exam
Exam
General: No Apparent Distress
HEENT: Anicteric
Respiratory: Clear (Anterior)
Cardiac: Regular Rhythm
GI: Soft, Non Tender, Non Distended and Normal Bowel Sounds
Rectal: Other (OB positive per ER)
Skin: Warm and Dry
Neuro: AO x 3
Psych: Calm
Results
WBC 13.9 10^3/uL (4.8-10.8) H 07/22/24 04:27
Hgb 12.6 g/dL (12.0-16.0) 07/22/24 04:27
Hct 38.9 % (37.0-47.0) 07/22/24 04:27
MCV 95.8 fL (81.0-99.0) 07/22/24 04:27
Plt Count 334 10^3/uL (130-400) 07/22/24 04:27
Absolute Neuts (auto) 8.6 10^3/uL (1.4-6.5) H 07/21/24 14:54
Sodium 153 mmol/L (135-145) H 07/22/24 04:27
Potassium 3.2 mmol/L (3.5-5.1) L 07/22/24 04:27
Chloride 119 mmol/L (98-107) H 07/22/24 04:27
Carbon Dioxide 21 mmol/L (22-30) L 07/22/24 04:27
BUN 18 mg/dl (7-17) H 07/22/24 04:27
Creatinine 1.1 mg/dL (0.6-1.0) H 07/22/24 04:27
Calcium 8.6 mg/dl (8.4-10.2) 07/22/24 04:27
Total Bilirubin 0.7 mg/dl (0.2-1.3) 07/21/24 14:54
AST 67 U/L (14-36) H 07/21/24 14:54
ALT 37 U/L (0-35) H 07/21/24 14:54
Alkaline Phosphatase 364 U/L (38-126) H 07/21/24 14:54
Diagnostic Image Results:
Prior GI Procedures:
EGD:
Colonoscopy: Colonoscopy 2018 Dr.Hale larios in sigmoid otherwise normal no biopsies taken.
Assessment / Plan
-
79 yo F with past medical history fibromyalgia, hypertension, perforated eardrum treated with plasma patch with subsequent vertigo, DVT on Eliquis, osteoporosis, hypertension, transaminitis, fatty liver, obstructive sleep apnea, E. coli bacteremia
secondary to UTI, prior history of chronic diarrhea thought to be secondary to postcholecystectomy who presents to the emergency room with generalized weakness and fatigue for the past 2 to 3 days. She is also had poor appetite as well as decreased
oral intake. Recently diagnosed with DVT in left lower extremity 2 to 3 weeks ago started on Eliquis. Per family has lost significant amount of weight. Last evening while trying to obtain urine specimen patient had a bowel movement and noted to
be large dark and heme positive. Hemoglobin was stable. Asked to evaluate for the same. Patient's arrival hemoglobin was 13.7. Patient was given IV fluids and this morning was 12.6. She has had no further bleeding since. Patient was last dose
of Eliquis was yesterday evening. Vital signs stable. Hemoglobin stable.
Impression:
Hypernatremia
Fatigue and weakness
OB positive stool, in setting of Eliquis
Transaminitis-> patient with history of excessive use of Tylenol. Has increased and decreased before in the past. Prior CT of abdomen and pelvis December/2023 shows mild diffuse prominence of intra and extrahepatic biliary ducts likely within normal
limits given patient age and postcholecystectomy state. Liver within normal limits.
Chronic loose stools status postcholecystectomy on colestipol
Unprovoked DVT, on Eliquis
Plan:
-Okay for clear liquids, no reds
-Trend CBC
-Await iron studies, B12 folate
-Continue PPI
-Trend LFTs
-Avoid excessive amounts of Tylenol
-Would recommend hematology consultation, given history of unprovoked DVT
-May require imaging of liver/abdomen and pelvis, will hold at this time.
-
-
Thank you for consultation and allowing me to participate in the patient's care. Please call the stamp redemption clerk GI physician during the after hours with any questions or concerns.
[2024-07-22 09:47] LABS: Iron 52 ug/dl (37-170)
--- NOTE | 2024-07-22 09:47 | EDRN ---
Report given to TESSIE Bustamante.
[2024-07-22 09:56] LABS: Percent Saturation 26 % (20-50); Total Iron Binding Capacity 194 ug/dl (265-497)
[2024-07-22 12:24] LABS: Folate 16.6 ng/ml (2.76-20); Vitamin B12 > 1000 pg/ml (239-931)
[2024-07-22 12:41] LABS: Blood Urea Nitrogen 18 mg/dl (7-17); Calcium 8.7 mg/dl (8.4-10.2); Carbon Dioxide 23 mmol/L (22-30); Chloride 120 mmol/L (98-107); Estimated Creatinine Clearance 35 ml/min; Glucose 158 mg/dl (70-99); Potassium 3.1 mmol/L (3.5-5.1); Sodium 155 mmol/L (135-145); eGFR 46.62
--- NOTE | 2024-07-22 12:53 | W.PN.HOSP.TC ---
Today's Communication/Plan
-
Monitor vital signs see plan
Repeat BMP later today
Continue antibiotics
Bladder scan
blood cx
clears
PPI
monitor LFT's
Assessment / Plan
Assessment / Plan
General: Well Developed, Well Nourished and No Apparent Distress
HEENT: NormoCephalic, Moist mucous membranes and Atraumatic
Respiratory: Clear
Cardiac: S1/S2 and Regular Rhythm; No Murmur or Rub
GI: Soft, Non Tender, Non Distended and Normal Bowel Sounds
Musculoskeletal: No Edema
Neuro: Nonfocal/grossly intact
Psych: Calm
Generalized weakness/fatigue likely from poor oral intake
-PT/OT consult
# GI bleed likely due to Eliquis
-Heme positive
-Trend hemoglobin, transfuse if hemoglobin less than 7
-Hemoglobin stable
clears
GI following
PPI
UTI
sepsis likely 2/2 above; no bx checked on admission
cw CFTX; follow urine cx
bladder scan
# Hypernatremia likely from dehydration
# Hypokalemia likely from oral poor intake
# Acute kidney injury likely from dehydration
Replete potassium, continue with D5 water. Nephrology evaluation
Repeat BMP later today
# Transaminitis
agree with evaluation given weight loss and early satiety
Monitor LFTs
denies abdominal pain
# History of hypertension
-BP soft
-Hold all antihypertensives
-Monitor vital signs
# DVT of left lower extremities
-Hold Eliquis for now
# Hyperlipidemia
-Colestipol continued
# Chronic low back pain
-Tylenol prn for pain
#DVT prophylaxis
-scd
#CODE status
-full code
I spent a total of 52 minutes with the patient or on the floor. More than 50% of this time involved counseling and coordination of care.
Anticipated Discharge: > 48 hours
Subjective/Interval History
-
Date of Service: July 22, 2024
denies pain
Objective Data
-
Labs:
Laboratory Results
07/22/24 07/22/24
04:27 11:52
WBC 13.9 H
Hgb 12.6
Hct 38.9
Plt Count 334
Sodium 153 H 155 H
Potassium 3.2 L 3.1 L
Chloride 119 H 120 H
Carbon Dioxide 21 L 23
BUN 18 H 18 H
Creatinine 1.1 H 1.2 H
Glucose 130 H 158 H
Calcium 8.6 8.7
Vital Signs:
Vital Signs
Temp Pulse Resp BP Pulse Ox
97.8 F 102 18 119/57 99
07/22/24 07:28 07/22/24 07:28 07/22/24 07:28 07/22/24 07:28 07/22/24 07:28
[2024-07-22 13:15] LABS: Hepatitis B Surface Antigen Negative (Negative)
[2024-07-22 13:32] LABS: Hepatitis B Core Ab, Total Negative (Negative); Hepatitis B Surface Antibody Negative; Hepatitis C Antibody Negative (Negative)
--- NOTE | 2024-07-22 13:53 | PTCARENOTE ---
Pt taken to OR by transport staff. Pt tried to void using pure wick prior to leaving but unable.
[2024-07-22] MEDS: LIDOCAINE 4% PATCH 1 PATCH TOPICAL (15:03)
--- NOTE | 2024-07-22 15:23 | W.CON.NEPH ---
Consultation
-
Date/Time Consultation Requested: 07/22/24 1256
Date/Time Consultation Performed: 07/22/24 1415
Requesting Provider: Buck Calixto
Performing Provider: Lola Perrin
Reason for Consultation: OSCAR, hypernatremiam
Medical History
-
Chief Complaint: Gen weakness
History of Present Illness:
79-year-old female with history of fibromyalgia, hypertension on Amlodipine, benazapril, vertigo ,DVT on Eliquis presenting to the emergency department on 07/21 for generalized weakness and fatigue. For past few weeks she is progressively getting
worse but for past 2 to 3 days patient was very weak and was having trouble with any activity. Patient stated poor appetite and decreased oral intake for a while and lost wt. She noted to have wiley in ER with hb of 13.7. cr at 1.2, k 2.9, sodium
147. She received NS and 08/23 NS and this am sodium upto 155, cr remains at 1.2 and k 3.1. With ongoing worsening electrolyte issues nephrology consulted to manage. She also noted to have elevated LFTs and GI consulted too. Patient denied any
headache, dizziness. No NSAIDs use.. Patient denied any fever, chills, chest pain, short of breath. Patient denied any abdominal pain, nausea, vomiting or diarrhea. Patient denied dysuria hematuria. Reportedly she was diagnosed with DVT on her
left lower extremities 2 to 3 weeks ago and started on Eliquis.
Past Medical History
Osteoporosis
Fibromyalgia
Hypertension
DVT
Transaminitis
Vertigo
Fatty liver disease
Sleep apnea
Carpal tunnel
Past Surgical History: Other (Tonsillectomy Catheter removal Surgery Right shoulder repair Cholecystectomy TMJ procedure )
Social History
Tobacco: Non-Smoker
Alcohol: None
Drug: None
Personal:
Living: With Family
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
Family History
Family History: Not Pertinent
Allergies / Home Medications
Allergy/AdvReac Type Severity Reaction Status Date / Time
alendronate sodium Allergy debilitating Verified 07/21/24 14:43
[From Fosamax] joint pain
oxycodone [Oxycodone] Allergy Pt states Verified 07/21/24 14:43
if taken
with
antiemetic
she is
able to
tolerate.
�Medication �Instructions �Recorded �Confirmed �Type
acetaminophen 500 mg tablet 1,000 mg PO QIDPRN PRN mild pain 12/20/23 07/21/24 History
(Tylenol Extra Strength)
amlodipine 5 mg-benazepril 40 mg 1 cap PO HS Blood Pressure 12/20/23 07/21/24 History
capsule
apixaban 5 mg tablet (Eliquis) 5 mg PO BID Blood Clot 07/21/24 07/21/24 History
Prevention/Tx
colestipol 1 gram tablet (Colestid) 1 g PO TID High Cholesterol 07/21/24 07/21/24 History
dimenhydrinate 50 mg tablet 50 mg PO Q8HPRN PRN vertigo 07/21/24 07/21/24 History
(Dramamine)
prochlorperazine maleate 10 mg 10 mg PO Q6HPRN PRN nausea and 07/21/24 07/21/24 History
tablet (Compazine) vomiting
Review of Systems
-
All complete 12 point review of system have been inquired and found negative other than stated in HPI
Physical Exam
Vital Signs
Vital Signs
Temp Pulse Resp BP Pulse Ox
97.4 F 96 18 116/48 98
07/22/24 14:10 07/22/24 14:10 07/22/24 14:10 07/22/24 14:10 07/22/24 14:25
Lab Results
WBC 13.9 10^3/uL (4.8-10.8) H 12/03/24 04:27
RBC 4.06 10^6/uL (4.20-5.40) L 07/22/24 04:27
Hgb 12.6 g/dL (12.0-16.0) 07/22/24 04:27
Hct 38.9 % (37.0-47.0) 07/22/24 04:27
Plt Count 334 10^3/uL (130-400) 07/22/24 04:27
eGFR 46.62 07/22/24 11:52
Albumin 3.2 g/dl (3.5-5.0) L 07/21/24 14:54
Abnormal Lab Results
07/22/24 07/22/24 12
02:23 04:27 11:52
WBC 13.9 H
RBC 4.06 L
MCHC 32.4 L
RDW 16.0 H
Sodium 153 H 155 H
Potassium 3.2 L 3.1 L
Chloride 119 H 120 H
Carbon Dioxide 21 L
BUN 18 H 18 H
Creatinine 1.1 H 1.2 H
Glucose 130 H 158 H
TIBC 194 L
Ferritin 792.0 H
Vitamin B12 > 1000 H
Ur Occult Blood Reflex 3+ A
Urine Nitrite (Reflex) Positive A
Leukocyte Esterase Rfl 2+ A
Urine RBC 11-15 A
Urine WBC (Reflex) >100 A
Urine Bacteria (Reflex) Moderate A
Physical Exam
General: Awake, Alert and Oriented
HEENT: EOMI, Anicteric, Facial Symmetry and No JVD
Respiratory: Clear, Normal Excursion and Nonlabored Respirations
Cardiac: S1/S2 and Regular Rate/Rhythm
Breast: Deferred by me
Abdomen: Soft, Nontender and Nondistended
Musculoskeletal: No Cyanosis and No Edema
Skin: No Rash
Neuro: Nonfocal/Grossly Intact
Psych: Mood/afflect pleasant, Insight/judgement good and Appropriate
Data Reviewed
-
Radiology: Report Reviewed by me and Discussed with Patient
Labs: Labs Reviewed by me and Discussed with Patient
Assessment/Plan
-
IMP:
Generalized weakness/fatigue likely from poor oral intake
GI bleed likely due to Eliquis
UTI
sepsis likely 2/2 above
Hypernatremia likely from dehydration
Hypokalemia
Acute kidney injury
Transaminitis
History of hypertension
DVT of left lower extremities
Hyperlipidemia
Chronic low back pain
Plan:
A/w gen weakness, FTT and noted wiley, hb 13
mild OSCAR-cr 1.2 baseline cr 0.6-0.8, suspect prerenal with poor intake and low BPs
UA suspect UTI, pending cx, follow bladder scan
hypernatremia-FW deficit 3.3lit
agree with changing to D5w with kcl
cont replace k and recheck labs later today
BP are soft, holding Amlodipine and ACEI
abx per primary
hb relatively table, Eliquis held, LFTs high-GI follows , planning MRI/MRCP when stable
encourage po intake -on liquid diet
d/w pt
[2024-07-22 15:38] LABS: Hepatitis A Antibody, Total Negative (Negative)
--- NOTE | 2024-07-22 15:38 | PTCARENOTE ---
Pt OOB to bedside commode w/ assist x 1. Some dizziness but feels better getting up. Orthostatic VS done - BP went from 140/80 to 119/76 which is improvement from this morning. Pt still drowsy but responds to verbal stimuli. Pt c/o chronic
neck/back pain.
--- NOTE | 2024-07-22 15:58 | CM ---
Late entry
Patient seen bedside. IA completed.
Patient lives with spouse in a 2 story home with 3 steps to enter.
Bed and bath on second floor but has a granny suite on the 1st floor.
Patient uses hiking sticks to assist with ambulation.
Patient drives.
No hx VN or skilled rehab.
PT/OT evals (P)
PCP: Dr Baldo Higgins
Pharmacy: [facility] [address]
Plan: SNF vs home with VN
[2024-07-22] MEDS: KCL IV (20:30)
[2024-07-22] MEDS: D5W with KCL 20 MEQ 1000 IV (22:34)
[2024-07-23 00:30] LABS: Blood Urea Nitrogen 17 mg/dl (7-17); Calcium 9.2 mg/dl (8.4-10.2); Carbon Dioxide 25 mmol/L (22-30); Chloride 119 mmol/L (98-107); Estimated Creatinine Clearance 42 ml/min; Glucose 160 mg/dl (70-99); Potassium 3.5 mmol/L (3.5-5.1); Sodium 153 mmol/L (135-145); eGFR 58.02
--- NOTE | 2024-07-23 06:33 | W.PN.GI.CBS2 ---
Today's Communication / Plan
-
Please see assessment and plan for details.
Assessment / Plan
-
1. Weakness: With symptoms ongoing for several months, though worsening for the past few days, with UTI likely at least part of acute presentation. Multiple other variables could be contributing to the big picture, and worry for possible
underlying malignancy given new unprovoked DVT, weight loss etc. Her hypernatremia and renal insufficiency are improving. At this point we will continue to treat UTI, await morning labs and if renal function still improving likely plan MRI with
and without contrast with MRCP given dilated ducts in the past.
2. Elevated LFTs: Will continue to trend for now, await hepatitis panel and MRI as above.
3.Questionable GI bleed: With dark stools noted, though hemoglobin has remained essentially normal. Will continue PPI for now, clear liquids for today, trend CBC. Pending MRI and labs possible EGD and colonoscopy this admission also given weight
loss, anorexia etc.
Subjective
Subjective
Date of Service: July 23, 2024
Patient feeling okay, having some buttock and leg pain, denies any abdominal pain. No bowel movements overnight, no nausea or vomiting, fever or chills.
Objective
Data Reviewed
Laboratory Data:
Laboratory Results
Magnesium 2.3 mg/dl (1.6-2.3) 07/21/24 14:54
Total Bilirubin 0.7 mg/dl (0.2-1.3) 07/21/24 14:54
AST 67 U/L (14-36) H 07/21/24 14:54
ALT 37 U/L (0-35) H 07/21/24 14:54
Alkaline Phosphatase 364 U/L (38-126) H 07/21/24 14:54
Vital Signs and I&O:
Vital Signs
Temp Pulse Resp BP Pulse Ox
97.7 F 101 18 142/88 98
07/22/24 23:10 07/22/24 23:10 07/22/24 23:10 07/22/24 23:10 07/23/24 02:39
I&O
07/21/24 07/22/24 07/23/24
06:59 06:59 06:59
Intake Total 120 / 120
Balance 120 / 120
Physical Exam
Physical Exam
General: NAD
Abdomen: normal bowel sounds, soft, no tenderness, no masses or bruits, no ascites
[2024-07-23 07:00] VITALS: BP 129/67
[2024-07-23] MEDS: PROTONIX IV 40 MG IV (08:29)
[2024-07-23] MEDS: NSS (PRESERVATIVE FREE) 10 ML IV (08:29)
[2024-07-23] MEDS: ROCEPHIN 1000 MG IV (08:29)
[2024-07-23] MEDS: LIDOCAINE 4% PATCH 1 PATCH TOPICAL (08:30)
[2024-07-23 08:37] LABS: % Basophils 0.2 % (0-2); % Eosinophils 0.4 % (0-6); % Immature Granulocytes 0.4 % (0-0.5); % Lymphocytes 12.3 % (20.5-51.1); % Monocytes 6.8 % (1.7-9.3); % Neutrophils 79.9 % (42.2-75.2); Absolute Immature Granulocytes 0.1 10^3/uL (0-0.05); Absolute Lymphocytes 1.4 10^3/uL (1.2-3.4); Absolute Monocytes 0.8 10^3/uL (0.1-0.6); Absolute Neutrophils 9.1 10^3/uL (1.4-6.5); Hematocrit 40.9 % (37.0-47.0); Hemoglobin 13.2 g/dL (12.0-16.0); Mean Corp Hgb Conc. 32.3 g/dL (33.0-37.0); Mean Corpuscular Hgb 30.9 pg (27.0-31.0); Mean Corpuscular Volume 95.8 fL (81.0-99.0); Mean Platelet Volume 10.2 fL (7.4-10.4); Nucleated Red Blood Cells % 0 %; Platelet Count 306 10^3/uL (130-400); Red Blood Cell Count 4.27 10^6/uL (4.20-5.40); Red Cell Dist. Width 16.7 % (11.5-14.5); White Blood Cell Count 11.4 10^3/uL (4.8-10.8)
[2024-07-23 08:59] LABS: ALT (SGPT) 37 U/L (0-35); AST (SGOT) 50 U/L (14-36); Albumin 2.9 g/dl (3.5-5.0); Alkaline Phosphatase 377 U/L (38-126); Blood Urea Nitrogen 15 mg/dl (7-17); Calcium 9.2 mg/dl (8.4-10.2); Carbon Dioxide 23 mmol/L (22-30); Chloride 124 mmol/L (98-107); Direct Bilirubin 0.4 mg/dl (0.0-0.4); Estimated Creatinine Clearance 47 ml/min; Glucose 163 mg/dl (70-99); Potassium 3.3 mmol/L (3.5-5.1); Sodium 158 mmol/L (135-145); Total Bilirubin 0.7 mg/dl (0.2-1.3); Total Protein 5.5 g/dl (6.3-8.2); eGFR > 60.00
[2024-07-23 10:08] VITALS: BMI 22.1
[2024-07-23] MEDS: D5W with KCL 20 MEQ 1000 IV ×2 (10:49→22:02)
--- NOTE | 2024-07-23 11:11 | CM ---
Patient sleeping, spoke with spouse bedside, he did not want to wake patient.
PT recommending skilled rehab, spouse doubts patient will be agreeable and asked CM to return in a few days.
Per spouse patient was going to outpatient therapy, he would be agreeable to VN, but thinks CM should wait for spouse to weigh in.
CM will return later today to discuss therapy recommendations.
Plan: skilled rehab vs home with therapy.
--- NOTE | 2024-07-23 12:05 | W.PN.HOSP.TC ---
Addendum entered and electronically signed by Buck Maravilla MD 07/23/24 12:39:
Discussed with GI, start heparin drip.
Original Note:
Today's Communication/Plan
-
Monitor vital signs see plan
Monitor LFTs
MRI abdomen
Consider transition to IV heparin given recent DVT if hemoglobin stable and okay with GI
change abx to cefepime
Follow urine culture
Discussed with at bedside
Increase D5 water
Repeat sodium later today
Assessment / Plan
Assessment / Plan
General: Well Developed, Well Nourished and No Apparent Distress
HEENT: NormoCephalic, Moist mucous membranes and Atraumatic
Respiratory: Clear
Cardiac: S1/S2 and Regular Rhythm; No Murmur or Rub
GI: Soft, Non Tender, Non Distended and Normal Bowel Sounds
Musculoskeletal: No Edema
Neuro: Nonfocal/grossly intact
Psych: Calm
# questionable GI bleed
-Heme positive stool; no profuse bleeding so far
-Trend hemoglobin, transfuse if hemoglobin less than 7
-Hemoglobin stable so far. given recent extensive DVT, as GI if can start IV heparin interim
clears for now
GI following
PPI
UTI
sepsis likely 2/2 above; no bx checked on admission
follow urine cx growing Pseudomonas, switch antibiotics to cefepime
bladder scan
Generalized weakness/fatigue likely from poor oral intake
-PT/OT following
# Hypernatremia likely from dehydration
# Hypokalemia likely from oral poor intake
# Acute kidney injury likely from dehydration
Replete potassium, continue with D5 water. Nephrology following
Repeat sodium later today
# Transaminitis
agree with evaluation given weight loss and early satiety
Monitor LFTs
denies abdominal pain
MRI abdomen
# History of hypertension
-BP soft
-Hold all antihypertensives for now
-Monitor vital signs
# DVT of left lower extremities
-Hold Eliquis for now; asked GI if can start IV hep interim
yet to see hematology outpatient
# Hyperlipidemia
-Colestipol continued
# Chronic low back pain
-Tylenol prn for pain
#DVT prophylaxis
-scd
#CODE status
-full code
I spent a total of 53 minutes with the patient or on the floor. More than 50% of this time involved counseling and coordination of care.
Anticipated Discharge: > 48 hours
Subjective/Interval History
-
Date of Service: July 23, 2024
denies abdominal pain
Objective Data
-
Labs:
Laboratory Results
07/23/24 07/23/24
00:03 07:43
WBC 11.4 H
Hgb 13.2
Hct 40.9
Plt Count 306
Sodium 153 H 158 H
Potassium 3.5 3.3 L
Chloride 119 H 124 H
Carbon Dioxide 25 23
BUN 17 15
Creatinine 1.0 0.9
Glucose 160 H 163 H
Calcium 9.2 9.2
Total Bilirubin 0.7
AST 50 H
ALT 37 H
Alkaline Phosphatase 377 H
Vital Signs:
Vital Signs
Temp Pulse Resp BP Pulse Ox
97.6 F 93 16 129/67 97
07/23/24 07:00 07/23/24 07:00 07/23/24 07:00 07/23/24 07:00 07/23/24 08:45
I&O
07/22/24 07/23/24 07/24/24
06:59 06:59 06:59
Intake Total 1080 / 1080
Balance 1080 / 1080
--- NOTE | 2024-07-23 12:32 | W.PN.NEPH.PH ---
Today's Communication / Plan
-
maintain hypotonic IVFs with KCL
follow lytes
Assessment/Plan
-
IMP:
Generalized weakness/fatigue likely from poor oral intake
GI bleed likely due to Eliquis
UTI
sepsis likely 2/2 above
Hypernatremia likely from dehydration
Hypokalemia
Acute kidney injury
Transaminitis
History of hypertension
DVT of left lower extremities
Hyperlipidemia
Chronic low back pain
Plan:
A/w gen weakness, FTT and noted wiley, hb 13
mild OSCAR-cr 1.2 baseline cr 0.6-0.8, suspect prerenal with poor intake and low BPs
OSCAR improving but free water deficit persistst, sodium at 158
PO intake very poor
UA suspect UTI, pending cx, follow bladder scan
original FW deficit 3.3lit
agree with maintaining D5w with kcl but will increase rate to 100cc/hr
continue replace k and recheck labs later today
BP are soft but improving holding Amlodipine and ACEI
abx per primary
hgb relatively stable at 13.2 (likley hemoconcentrated), Eliquis held, LFTs high-GI follows , planning MRI/MRCP when stable
encourage po intake -on liquid diet
d/w pt
-
-
Date of Service: July 23, 2024
CC / HPI / ROS
-
Chief Complaint:
Hypernatremia
OSCAR
History of Present Illness:
creatinine improving
K up to 3.3
sodium at 158
Review of Systems:
incontinent
no report chest pain or sob
poor po intake
Labs
-
Labs:
WBC 11.4 10^3/uL (4.8-10.8) H 07/23/24 07:43
RBC 4.27 10^6/uL (4.20-5.40) 07/23/24 07:43
Hgb 13.2 g/dL (12.0-16.0) 07/23/24 07:43
Hct 40.9 % (37.0-47.0) 07/23/24 07:43
Plt Count 306 10^3/uL (130-400) 07/23/24 07:43
Potassium 3.3 mmol/L (3.5-5.1) L 07/23/24 07:43
Chloride 124 mmol/L (98-107) H 07/23/24 07:43
Carbon Dioxide 23 mmol/L (22-30) 07/23/24 07:43
BUN 15 mg/dl (7-17) 07/23/24 07:43
Creatinine 0.9 mg/dL (0.6-1.0) 07/23/24 07:43
eGFR > 60.00 07/23/24 07:43
Glucose 163 mg/dl (70-99) H 07/23/24 07:43
Calcium 9.2 mg/dl (8.4-10.2) 07/23/24 07:43
Albumin 2.9 g/dl (3.5-5.0) L 07/23/24 07:43
Physical Exam
-
Vital Signs:
Vital Signs
Temp Pulse Resp BP Pulse Ox
97.6 F 93 16 129/67 97
07/23/24 07:00 07/23/24 07:00 07/23/24 07:00 07/23/24 07:00 07/23/24 08:45
Cardiovascular:: Regular rate and rhythm
Respiratory:: Bilateral: CTA
Lung Excursion:: Normal
Abdomen:: Nontender and Soft
Bowel Sounds:: Normal
Extremity Edema:: None: Bilateral:
Landin Catheter: No
Other Findings::
cachectic and withdrawn but awake and alert
[2024-07-23] MEDS: KCL 20 MEQ PO (13:10)
[2024-07-23] MEDS: VISBIOME 1 CAP PO (13:10)
[2024-07-23] MEDS: STERILE WATER FOR INJECTION 10 ML IV (13:11)
[2024-07-23] MEDS: MAXIPIME 2000 MG IV (13:12)
[2024-07-23 14:26] LABS: APTT 32.4 Sec (23.4-35.0)
[2024-07-23] MEDS: TYLENOL 650 MG PO ×2 (14:32→21:26)
[2024-07-23 14:34] LABS: Sodium 158 mmol/L (135-145)
[2024-07-23 15:00] VITALS: BP 149/74
--- NOTE | 2024-07-23 16:10 | PTCARENOTE ---
report called to tele/medsurg pt requires heparin gtt expected stay >48 hrs. family updated.
[2024-07-23 16:45] VITALS: BP 130/60
--- NOTE | 2024-07-23 17:23 | TRANSFER ---
Patient transferred to [facility] at 1645, walked with x1 assist from stretcher to bed. VSS, assessment complete by this RN. Oriented to room, call gregory within reach. Family at bedside.
[2024-07-23] MEDS: HEPARIN 25000 UNITS/250 ML IV (18:15)
[2024-07-24] VITALS (7 sets, daily range): BP systolic 124–154; BP diastolic 57–90; PULSE 105; O2SAT 98
[2024-07-24 00:39] LABS: APTT 152.7 Sec (23.4-35.0)
[2024-07-24 00:42] LABS: Sodium 157 mmol/L (135-145)
[2024-07-24] MEDS: STERILE WATER FOR INJECTION 10 ML IV ×2 (00:57→12:02)
[2024-07-24] MEDS: MAXIPIME 2000 MG IV ×2 (00:58→12:01)
[2024-07-24 06:13] LABS: % Basophils 0.2 % (0-2); % Eosinophils 1.1 % (0-6); % Immature Granulocytes 0.5 % (0-0.5); % Lymphocytes 16.6 % (20.5-51.1); % Monocytes 7.8 % (1.7-9.3); % Neutrophils 73.8 % (42.2-75.2); Absolute Eosinophils 0.1 10^3/uL (0-0.7); Absolute Immature Granulocytes 0.1 10^3/uL (0-0.05); Absolute Monocytes 0.9 10^3/uL (0.1-0.6); Absolute Neutrophils 8.6 10^3/uL (1.4-6.5); Hematocrit 38.6 % (37.0-47.0); Hemoglobin 12.2 g/dL (12.0-16.0); Mean Corp Hgb Conc. 31.6 g/dL (33.0-37.0); Mean Corpuscular Hgb 30.9 pg (27.0-31.0); Mean Corpuscular Volume 97.7 fL (81.0-99.0); Mean Platelet Volume 10.3 fL (7.4-10.4); Nucleated Red Blood Cells % 0 %; Platelet Count 269 10^3/uL (130-400); Red Blood Cell Count 3.95 10^6/uL (4.20-5.40); Red Cell Dist. Width 17.3 % (11.5-14.5); White Blood Cell Count 11.7 10^3/uL (4.8-10.8)
--- NOTE | 2024-07-24 06:30 | W.PN.GI.CBS2 ---
Today's Communication / Plan
-
Please see assessment and plan for details.
Assessment / Plan
-
1. Weakness: With symptoms ongoing for several months, though worsening for the past few days, with UTI likely at least part of acute presentation. Multiple other variables could be contributing to the big picture, and worry for possible
underlying malignancy given new unprovoked DVT, weight loss etc. At this point we will continue to treat UTI, leukocytosis is improving, will check MRI.
2. Elevated LFTs: Will continue to trend for now, hepatitis panel negative, LFTs improved, possibly partially related to UTI. Await MRI as ordered given previously dilated ducts.
3.Questionable GI bleed: With question of dark stools noted, though hemoglobin has remained normal with no signs of bleeding. Patient is eager to go home, and given this and her hyponatremia will hold on EGD and colonoscopy for now with normal
hemoglobin and no signs of bleeding. Can plan as an outpatient pending clinical course.
Subjective
Subjective
Date of Service: July 24, 2024
Patient feeling okay, still complaining of leg pain, though no new abdominal pain. No signs of GI bleeding, no bowel movements yesterday.
Objective
Data Reviewed
Laboratory Data:
Laboratory Results
07/24/24 05:27
Laboratory Results
APTT Cancelled 07/24/24 05:27
Magnesium 2.3 mg/dl (1.6-2.3) 07/21/24 14:54
Total Bilirubin 0.7 mg/dl (0.2-1.3) 07/23/24 07:43
AST 50 U/L (14-36) H 07/23/24 07:43
ALT 37 U/L (0-35) H 07/23/24 07:43
Alkaline Phosphatase 377 U/L (38-126) H 07/23/24 07:43
Vital Signs and I&O:
Vital Signs
Temp Pulse Resp BP Pulse Ox
98.1 F 95 16 133/63 98
07/24/24 00:11 07/24/24 00:11 07/24/24 00:11 07/24/24 00:11 07/24/24 00:11
I&O
07/22/24 07/23/24 07/24/24
06:59 06:59 06:59
Intake Total 1080 / 1080 120 / 120
Balance 1080 / 1080 120 / 120
Physical Exam
Physical Exam
General: NAD
Abdomen: normal bowel sounds, soft, no tenderness, no masses or bruits, no ascites
[2024-07-24 06:36] LABS: ALT (SGPT) 35 U/L (0-35); AST (SGOT) 49 U/L (14-36); Albumin 2.8 g/dl (3.5-5.0); Alkaline Phosphatase 467 U/L (38-126); Blood Urea Nitrogen 13 mg/dl (7-17); Calcium 9.4 mg/dl (8.4-10.2); Carbon Dioxide 23 mmol/L (22-30); Chloride 125 mmol/L (98-107); Estimated Creatinine Clearance 42 ml/min; Glucose 142 mg/dl (70-99); Potassium 3.8 mmol/L (3.5-5.1); Sodium 157 mmol/L (135-145); Total Bilirubin 0.7 mg/dl (0.2-1.3); Total Protein 5.4 g/dl (6.3-8.2); eGFR 58.02
[2024-07-24] MEDS: PROTONIX IV 40 MG IV (07:43)
[2024-07-24] MEDS: NSS (PRESERVATIVE FREE) 10 ML IV (07:45)
[2024-07-24] MEDS: TYLENOL 650 MG PO ×2 (07:46→20:12)
[2024-07-24] MEDS: VISBIOME 1 CAP PO (07:47)
[2024-07-24] MEDS: HEPARIN 2400 UNITS IV ×2 (07:47)
[2024-07-24] MEDS: LIDOCAINE 4% PATCH 1 PATCH TOPICAL (07:48)
[2024-07-24] MEDS: D5W with KCL 20 MEQ IV (09:39)
[2024-07-24] MEDS: D5W 1000 IV ×2 (09:50→21:08)
--- NOTE | 2024-07-24 11:52 | W.PN.HOSP.TC ---
Today's Communication/Plan
-
monitor vitals
see plan
PT/OT
MRI abdomen
monitor LFT's
increase d5 W; repeat sodium later today
Assessment / Plan
Assessment / Plan
General: Well Developed, Well Nourished and No Apparent Distress
HEENT: NormoCephalic, Moist mucous membranes and Atraumatic
Respiratory: Clear
Cardiac: S1/S2 and Regular Rhythm; No Murmur or Rub
GI: Soft, Non Tender, Non Distended and Normal Bowel Sounds
Musculoskeletal: No Edema
Neuro: Nonfocal/grossly intact
Psych: Calm
# questionable GI bleed
-Heme positive stool; no profuse bleeding so far
-Trend hemoglobin, transfuse if hemoglobin less than 7
-Hemoglobin stable so far. given recent extensive DVT, started IV heparin for now; discussed with GI
GI following
PPI
# Transaminitis
agree with evaluation given weight loss and early satiety
Monitor LFTs
denies abdominal pain
MRI abdomen
UTI
sepsis likely 2/2 above; no bx checked on admission
follow urine cx growing Pseudomonas, switched antibiotics to cefepime
bladder scan
Generalized weakness/fatigue likely from poor oral intake
-PT/OT following
# Hypernatremia likely from dehydration
# Hypokalemia likely from oral poor intake
# Acute kidney injury likely from dehydration
Replete potassium, increase D5 water. Nephrology following
Repeat sodium later today
# History of hypertension
restart amlodipine
hold aceinh
# DVT of left lower extremities
-Hold Eliquis for now; discussed with GI. Started on heparin
yet to see hematology outpatient
# Hyperlipidemia
-Colestipol continued
# Chronic low back pain
-Tylenol prn for pain
#DVT prophylaxis
-scd,heparin
#CODE status
-full code
I spent a total of 52 minutes with the patient or on the floor. More than 50% of this time involved counseling and coordination of care.
Anticipated Discharge: > 48 hours
Subjective/Interval History
-
Date of Service: July 24, 2024
denies nausea
Objective Data
-
Labs:
Laboratory Results
07/24/24 07/24/24 07/24/24
00:11 05:27 05:27
WBC 11.7 H
Hgb 12.2
Hct 38.6
Plt Count 269
APTT 152.7 H* Cancelled 68.0 H
Sodium 157 H 157 H
Potassium 3.8
Chloride 125 H
Carbon Dioxide 23
BUN 13
Creatinine 1.0
Glucose 142 H
Calcium 9.4
Total Bilirubin 0.7
AST 49 H
ALT 35
Alkaline Phosphatase 467 H
07/24/24 07/24/24 07/24/24
15:00 15:30 21:00
WBC
Hgb
Hct
Plt Count
APTT Pending
Sodium Pending Pending
Potassium
Chloride
Carbon Dioxide
BUN
Creatinine
Glucose
Calcium
Total Bilirubin
AST
ALT
Alkaline Phosphatase
Vital Signs:
Vital Signs
Temp Pulse Resp BP Pulse Ox
97.8 F 91 16 145/70 98
07/24/24 07:22 07/24/24 07:22 07/24/24 07:22 07/24/24 07:22 07/24/24 08:00
I&O
07/23/24 07/24/24 07/25/24
06:59 06:59 06:59
Intake Total 1080 / 1080 120 / 120
Balance 1080 / 1080 120 / 120
[2024-07-24] MEDS: NORVASC 5 MG PO (12:56)
[2024-07-24 13:35] LABS: Transferrin 136 mg/dL (200-360)
--- NOTE | 2024-07-24 14:16 | W.PN.NEPH.PH ---
Today's Communication / Plan
-
Maintain hypotonic fluids
Assessment/Plan
-
IMP:
Generalized weakness/fatigue likely from poor oral intake
GI bleed likely due to Eliquis
UTI
sepsis likely 2/2 above
Hypernatremia likely from dehydration
Hypokalemia
Acute kidney injury
Transaminitis
History of hypertension
DVT of left lower extremities
Hyperlipidemia
Chronic low back pain
Plan:
A/w gen weakness, FTT and noted wiley, hb 13
mild OSCAR-cr 1.0 baseline cr 0.6-0.8, suspect prerenal with poor intake and low BPs
OSCAR improving ,uop not recorded
PO intake very poor
UA suspect UTI, pending cx, follow bladder scan
original FW deficit 3.3lit
agree with maintaining D5w with kcl but will increase rate to 100cc/hr
continue replace k and recheck labs later today
BP are soft but improving holding Amlodipine and ACEI
abx per primary
hgb relatively stable at 12.2 (ummley hemoconcentrated), Eliquis held, LFTs high-GI follows , planning MRI/MRCP when stable
encourage po intake -on liquid diet
Check urine osmolality to assess for unlikely but possible DI
d/w pt
-
-
Date of Service: July 24, 2024
CC / HPI / ROS
-
Chief Complaint:
Hypernatremia
OSCAR
History of Present Illness:
creatinine improving
K up to 3.3
sodium at 157
Review of Systems:
incontinent
no report chest pain or sob
poor po intake
Labs
-
Labs:
WBC 11.7 10^3/uL (4.8-10.8) H 07/24/24 05:27
RBC 3.95 10^6/uL (4.20-5.40) L 07/24/24 05:27
Hgb 12.2 g/dL (12.0-16.0) 07/24/24 05:27
Hct 38.6 % (37.0-47.0) 07/24/24 05:27
Plt Count 269 10^3/uL (130-400) 07/24/24 05:27
Potassium 3.8 mmol/L (3.5-5.1) 07/24/24 05:27
Chloride 125 mmol/L (98-107) H 07/24/24 05:27
Carbon Dioxide 23 mmol/L (22-30) 07/24/24 05:27
BUN 13 mg/dl (7-17) 07/24/24 05:27
Creatinine 1.0 mg/dL (0.6-1.0) 07/24/24 05:27
eGFR 58.02 07/24/24 05:27
Glucose 142 mg/dl (70-99) H 07/24/24 05:27
Calcium 9.4 mg/dl (8.4-10.2) 07/24/24 05:27
Albumin 2.8 g/dl (3.5-5.0) L 07/24/24 05:27
Physical Exam
-
Vital Signs:
Vital Signs
Temp Pulse Resp BP Pulse Ox
97.8 F 91 16 124/70 98
07/24/24 07:22 07/24/24 07:22 07/24/24 07:22 07/24/24 12:44 07/24/24 08:00
Cardiovascular:: Regular rate and rhythm
Respiratory:: Bilateral: CTA
Lung Excursion:: Normal
Abdomen:: Nontender and Soft
Bowel Sounds:: Normal
Extremity Edema:: None: Bilateral:
Landin Catheter: No
Other Findings::
cachectic and withdrawn but awake and alert
--- NOTE | 2024-07-24 15:13 | PN.CDI ---
CDI
- -
CDI:
Physician Documentation Request
Admit Date: 07/21/24 22:33
Dear Doctor Taiwo
Patient presented to the ED for generalized weakness and fatigue. Found to have UTI.
07/22 progress note includes a diagnosis of sepsis.
Patient has remained afebrile.
07/21 presenting heart rate 88-95 , presenting respiratory rate 13-19.
WBC: 07/21 10.5 07/22 13.9
Please clarify the following:
Sepsis was present on admission
Sepsis was not present on admission
Unable to determine
Use of terms such as suspected, likely, concern for, or probable (associated with a specific diagnosis that is being evaluated, monitored, or treated as if it exists) are acceptable and can be coded in the inpatient setting, when documented at the
time of discharge.
Thank you,
Bonny Quinn RN, BSN
CDI Specialist
tiger text
Please use your independent medical judgment in providing your response.
--- NOTE | 2024-07-24 16:25 | W.PN.UPDATE ---
Update Note
Progress Note Update
I reviewed MRI results with patient and her , pancreatic mass with innumerable liver metastasis. I discussed with Dr. Moreno, will plan EUS with possible ERCP and stent tomorrow. Stop heparin at 7 AM, n.p.o. after midnight.
[2024-07-24 17:40] LABS: APTT 192.9 Sec (23.4-35.0)
[2024-07-24 18:44] LABS: Sodium 153 mmol/L (135-145)
[2024-07-24] MEDS: ROXICODONE 5 MG PO (21:07)
[2024-07-24] MEDS: ZOFRAN 4 MG PO (21:07)
[2024-07-25] VITALS (8 sets, daily range): BP systolic 125–169; BP diastolic 68–122
[2024-07-25] MEDS: STERILE WATER FOR INJECTION 10 ML IV ×2 (00:49→13:27)
--- NOTE | 2024-07-25 01:05 | STATUS ---
This RN went into patient's room and found her presenting with altered mental status. Patient was displaying signs of confusion. She stated being unsure of her birthday and who members of her care team were. Vital signs and blood sugar were WNL.
CHANEL Medina notified. Orders received for stat labs. Patient spontaneously back to baseline and able to answer questions. Patient reported she was aware of confusion. Care ongoing.
[2024-07-25 01:16] LABS: Glucose - Point of Care 159 mg/dl (70-99)
[2024-07-25] MEDS: MAXIPIME 2000 MG IV ×2 (01:25→13:27)
[2024-07-25 01:38] LABS: APTT 98.8 Sec (23.4-35.0)
[2024-07-25 01:58] LABS: Hematocrit 38.4 % (37.0-47.0); Hemoglobin 12.3 g/dL (12.0-16.0); Mean Corpuscular Hgb 31.1 pg (27.0-31.0); Mean Corpuscular Volume 97.2 fL (81.0-99.0); Mean Platelet Volume 10.2 fL (7.4-10.4); Platelet Count 260 10^3/uL (130-400); Red Blood Cell Count 3.95 10^6/uL (4.20-5.40); Red Cell Dist. Width 17.8 % (11.5-14.5); White Blood Cell Count 11.1 10^3/uL (4.8-10.8)
[2024-07-25 02:03] LABS: Blood Urea Nitrogen 14 mg/dl (7-17); Calcium 9.1 mg/dl (8.4-10.2); Carbon Dioxide 23 mmol/L (22-30); Chloride 120 mmol/L (98-107); Estimated Creatinine Clearance 42 ml/min; Glucose 150 mg/dl (70-99); Potassium 4.1 mmol/L (3.5-5.1); Sodium 151 mmol/L (135-145); eGFR 58.02
--- NOTE | 2024-07-25 02:39 | W.PN.UPDATE ---
Update Note
Progress Note Update
Asked by nursing to evaluate patient for change of mental status. Per nursing patient forgetful at baseline. Upon assessment patient laying in bed, slightly restless but not in distress, AAOX1-2, VSS. Nursing reports patient was more alert and
conversating when family here earlier this afternoon, but now not holding conversation. Of note patient received 1x dose of 5mg oxycodone for 10/10 generalized pain around 2100. STAT labs unremarkable. Nursing to continue to monitor.
[2024-07-25] MEDS: HEPARIN 25000 UNITS/250 ML IV (03:46)
[2024-07-25] MEDS: D5W 1000 IV ×3 (05:44→17:25)
[2024-07-25] MEDS: PROTONIX IV 40 MG IV (09:00)
[2024-07-25] MEDS: NSS (PRESERVATIVE FREE) 10 ML IV (09:00)
[2024-07-25 09:20] LABS: % Basophils 0.2 % (0-2); % Eosinophils 1.4 % (0-6); % Immature Granulocytes 0.9 % (0-0.5); % Lymphocytes 15.9 % (20.5-51.1); % Monocytes 9.3 % (1.7-9.3); % Neutrophils 72.3 % (42.2-75.2); Absolute Eosinophils 0.1 10^3/uL (0-0.7); Absolute Immature Granulocytes 0.1 10^3/uL (0-0.05); Absolute Lymphocytes 1.6 10^3/uL (1.2-3.4); Absolute Monocytes 0.9 10^3/uL (0.1-0.6); Absolute Neutrophils 7.2 10^3/uL (1.4-6.5); Hemoglobin 12.2 g/dL (12.0-16.0); Mean Corp Hgb Conc. 31.3 g/dL (33.0-37.0); Mean Corpuscular Hgb 30.8 pg (27.0-31.0); Mean Corpuscular Volume 98.5 fL (81.0-99.0); Mean Platelet Volume 10.5 fL (7.4-10.4); Nucleated Red Blood Cells % 0 %; Platelet Count 237 10^3/uL (130-400); Red Blood Cell Count 3.96 10^6/uL (4.20-5.40); Red Cell Dist. Width 17.7 % (11.5-14.5); White Blood Cell Count 9.9 10^3/uL (4.8-10.8)
[2024-07-25 09:31] LABS: APTT 77.5 Sec (23.4-35.0)
[2024-07-25 09:57] LABS: ALT (SGPT) 33 U/L (0-35); AST (SGOT) 42 U/L (14-36); Albumin 2.6 g/dl (3.5-5.0); Alkaline Phosphatase 470 U/L (38-126); Blood Urea Nitrogen 12 mg/dl (7-17); Calcium 9.1 mg/dl (8.4-10.2); Carbon Dioxide 23 mmol/L (22-30); Chloride 120 mmol/L (98-107); Estimated Creatinine Clearance 42 ml/min; Glucose 146 mg/dl (70-99); Potassium 3.4 mmol/L (3.5-5.1); Sodium 153 mmol/L (135-145); Total Bilirubin 0.7 mg/dl (0.2-1.3); Total Protein 5.2 g/dl (6.3-8.2); eGFR 58.02
[2024-07-25] MEDS: VISBIOME PO (11:07)
[2024-07-25] MEDS: ROXICODONE 5 MG PO ×2 (11:16→20:07)
[2024-07-25] MEDS: NORVASC 5 MG PO (11:16)
[2024-07-25] MEDS: LIDOCAINE 4% PATCH 1 PATCH TOPICAL (11:17)
--- NOTE | 2024-07-25 12:22 | W.PN.HOSP.TC ---
Today's Communication/Plan
-
monitor vitals
see plan
NPO for EUS with ERCP today
hold hep per GI
oxycodone prn for pain
Discussed with daughter and spouse at bedside
Increase D5 water
Replete potassium
cw abx
Assessment / Plan
Assessment / Plan
General: Well Developed, Well Nourished and No Apparent Distress
HEENT: NormoCephalic, Moist mucous membranes and Atraumatic
Respiratory: Clear
Cardiac: S1/S2 and Regular Rhythm; No Murmur or Rub
GI: Soft, Non Tender, Non Distended and Normal Bowel Sounds
Musculoskeletal: No Edema
Neuro: Nonfocal/grossly intact
Psych: Calm
Transaminitis
agree with evaluation given weight loss and early satiety
Monitor LFTs
denies abdominal pain
MRI abdomen with pancreatic mass with innumerable liver metastases. Plan for EUS with possible ERCP and stent 07/25
questionable GI bleed
-Heme positive stool; no profuse bleeding so far
-Trend hemoglobin, transfuse if hemoglobin less than 7
-Hemoglobin stable so far. given recent extensive DVT, started IV heparin for now; discussed with GI
GI following
PPI
UTI
sepsis likely 2/2 above was present on admission; no bx checked on admission
follow urine cx growing Pseudomonas, switched antibiotics to cefepime
bladder scan
Generalized weakness/fatigue likely from poor oral intake
-PT/OT following
# Hypernatremia likely from dehydration
# Hypokalemia likely from oral poor intake
# Acute kidney injury likely from dehydration
Replete potassium, increase D5 water. Nephrology following
Repeat sodium later today
urine osm pending to r/o DI
# History of hypertension
restart amlodipine
hold aceinh
# DVT of left lower extremities
-Hold Eliquis for now; discussed with GI. Started on heparin
yet to see hematology outpatient
# Hyperlipidemia
-Colestipol continued
# Chronic low back pain
fibromyalgia
-Tylenol prn for pain
oxycodone prn
follows up with rheumatology outpatient
#DVT prophylaxis
-scd,heparin
#CODE status
-full code
I spent a total of 51 minutes with the patient or on the floor. More than 50% of this time involved counseling and coordination of care.
Anticipated Discharge: > 48 hours
Subjective/Interval History
-
Date of Service: July 25, 2024
Denies pain
Objective Data
-
Labs:
Laboratory Results
07/25/24 07/25/24 07/25/24
01:11 01:46 08:14
WBC 11.1 H 9.9
Hgb 12.3 12.2
Hct 38.4 39.0
Plt Count 260 237
APTT 98.8 H 77.5 H
Sodium 151 H Cancelled 153 H
Potassium 4.1 Cancelled 3.4 L
Chloride 120 H Cancelled 120 H
Carbon Dioxide 23 Cancelled 23
BUN 14 Cancelled 12
Creatinine 1.0 Cancelled 1.0
Glucose 150 H Cancelled 146 H
Calcium 9.1 Cancelled 9.1
Total Bilirubin 0.7
AST 42 H
ALT 33
Alkaline Phosphatase 470 H
Vital Signs:
Vital Signs
Temp Pulse Resp BP Pulse Ox
98.1 F 97 18 169/68 97
07/25/24 07:37 07/25/24 07:37 07/25/24 07:37 07/25/24 07:37 07/25/24 07:37
I&O
07/24/24 07/25/24 07/26/24
06:59 06:59 06:59
Intake Total 120 / 120 1360 / 1360
Output Total 575 / 575
Balance 120 / 120 785 / 785
[2024-07-25 12:52] LABS: Osmolality Urine 112 mOsm/kg (300-900)
[2024-07-25] MEDS: KCL 40 MEQ PO (13:32)
--- NOTE | 2024-07-25 14:21 | CM ---
Reviewed chart, reviewed PT/OT. Indication is for SNF. Met with patient and her spouse who was at bedside. Patient's spouse stated that he understands that the indication is for SNF, however, he would like to take patient home with VN services.
Patient was sleeping. Detailed risks as she is not independent and she would need support from him which he admitted could surpass his ability. He did relay that he has been having a little more of a hard time lately with his ADLs and personal care.
Advised patient's spouse that if he takes patient home and is responsible for her welfare solely, as he stated that his daughters are close but not able to assist on a daily basis, he and patient will be at risk for injury and re-hospitalization.
Patient's spouse stated that he will think about the indication and will discuss with his daughter who he stated takes charge of family situations. He provided permission for CM to speak with her as well.
Plan: Case management will continue to follow and assist with discharge planning. Home with VN services vrs. SNF if patient becomes agreeable.
--- NOTE | 2024-07-25 17:20 | W.PN.NEPH.PH ---
Today's Communication / Plan
-
need accurate urine out put
follow labs later today
may consider DDAVP if has polyuria
Assessment/Plan
-
IMP:
Generalized weakness/fatigue likely from poor oral intake
GI bleed likely due to Eliquis
UTI
sepsis likely 2/2 above
Hypernatremia likely from dehydration
Hypokalemia
Acute kidney injury
Transaminitis
History of hypertension
DVT of left lower extremities
Hyperlipidemia
Chronic low back pain
Plan:
A/w gen weakness, FTT and noted wiley, hb 13
mild OSCAR-cr 1.0 stable, baseline cr 0.6-0.8, suspect prerenal with poor intake and low BPs
PO intake very poor
U osmo is low at 112 suspect may have partial DI
need accurate UOP
UA suspect UTI, pending cx, follow bladder scan
original FW deficit 3.3lit
agree with increase D5w with kcl rate to 140cc/hr
continue replace k and recheck labs later today
BP are soft but improving holding Amlodipine and ACEI
abx per primary
hgb relatively stable at 12.2 (likley hemoconcentrated), Eliquis held, LFTs high-GI follows
s/p EUS today, FNA liver lesion , MRI shows pancreatic mass with mets
encourage po intake
-
-
Date of Service: July 25, 2024
CC / HPI / ROS
-
Chief Complaint:
Hypernatremia
OSCAR
History of Present Illness:
creatinine stable at 1
K up to 3.4
BP stable
sodium at 153 still
Review of Systems:
incontinent
no report chest pain or sob
poor po intake
Labs
-
Labs:
WBC 9.9 10^3/uL (4.8-10.8) 07/25/24 08:14
RBC 3.96 10^6/uL (4.20-5.40) L 07/25/24 08:14
Hgb 12.2 g/dL (12.0-16.0) 07/25/24 08:14
Hct 39.0 % (37.0-47.0) 07/25/24 08:14
Plt Count 237 10^3/uL (130-400) 07/25/24 08:14
Sodium Cancelled 07/25/24 21:00
Potassium 3.4 mmol/L (3.5-5.1) L 07/25/24 08:14
Chloride 120 mmol/L (98-107) H 07/25/24 08:14
Carbon Dioxide 23 mmol/L (22-30) 07/25/24 08:14
BUN 12 mg/dl (7-17) 07/25/24 08:14
Creatinine 1.0 mg/dL (0.6-1.0) 07/25/24 08:14
eGFR 58.02 07/25/24 08:14
Glucose 146 mg/dl (70-99) H 07/25/24 08:14
Calcium 9.1 mg/dl (8.4-10.2) 07/25/24 08:14
Albumin 2.6 g/dl (3.5-5.0) L 07/25/24 08:14
Physical Exam
-
Vital Signs:
Vital Signs
Temp Pulse Resp BP Pulse Ox
98 F 91 15 147/122 100
07/25/24 16:55 07/25/24 16:45 07/25/24 16:45 07/25/24 16:45 07/25/24 16:45
Cardiovascular:: Regular rate and rhythm
Respiratory:: Bilateral: CTA (decreased)
Lung Excursion:: Normal
Abdomen:: Nontender and Soft
Extremity Edema:: None: Bilateral:
Landin Catheter: No
[2024-07-25] MEDS: ZOFRAN 4 MG PO (20:32)
[2024-07-25 20:47] LABS: Sodium 151 mmol/L (135-145)
[2024-07-26] MEDS: D5W 1000 IV ×3 (00:32→19:04)
[2024-07-26] MEDS: MAXIPIME 2000 MG IV ×2 (00:35→14:37)
[2024-07-26] MEDS: STERILE WATER FOR INJECTION 10 ML IV ×2 (00:35→14:38)
[2024-07-26 05:24] VITALS: BMI 22.3
[2024-07-26 07:18] LABS: ALT (SGPT) 31 U/L (0-35); AST (SGOT) 37 U/L (14-36); Albumin 2.6 g/dl (3.5-5.0); Alkaline Phosphatase 446 U/L (38-126); Blood Urea Nitrogen 15 mg/dl (7-17); Calcium 8.9 mg/dl (8.4-10.2); Carbon Dioxide 23 mmol/L (22-30); Chloride 120 mmol/L (98-107); Estimated Creatinine Clearance 39 ml/min; Glucose 189 mg/dl (70-99); Potassium 3.7 mmol/L (3.5-5.1); Sodium 151 mmol/L (135-145); Total Bilirubin 0.6 mg/dl (0.2-1.3); Total Protein 5.2 g/dl (6.3-8.2); eGFR 51.75
[2024-07-26 07:50] LABS: % Basophils 0.1 % (0-2); % Immature Granulocytes 2.3 % (0-0.5); % Lymphocytes 8.3 % (20.5-51.1); % Monocytes 5.6 % (1.7-9.3); % Neutrophils 83.7 % (42.2-75.2); Absolute Immature Granulocytes 0.2 10^3/uL (0-0.05); Absolute Lymphocytes 0.8 10^3/uL (1.2-3.4); Absolute Monocytes 0.6 10^3/uL (0.1-0.6); Absolute Neutrophils 8.5 10^3/uL (1.4-6.5); Hematocrit 36.9 % (37.0-47.0); Hemoglobin 11.7 g/dL (12.0-16.0); Mean Corp Hgb Conc. 31.7 g/dL (33.0-37.0); Mean Corpuscular Hgb 31.3 pg (27.0-31.0); Mean Corpuscular Volume 98.7 fL (81.0-99.0); Mean Platelet Volume 10.4 fL (7.4-10.4); Nucleated Red Blood Cells % 0 %; Platelet Count 198 10^3/uL (130-400); Red Blood Cell Count 3.74 10^6/uL (4.20-5.40); Red Cell Dist. Width 18.2 % (11.5-14.5); White Blood Cell Count 10.2 10^3/uL (4.8-10.8)
[2024-07-26 08:45] VITALS: BP 132/66
[2024-07-26] MEDS: ROXICODONE PO (08:47)
[2024-07-26] MEDS: PROTONIX IV 40 MG IV (08:48)
[2024-07-26] MEDS: NSS (PRESERVATIVE FREE) 10 ML IV (08:48)
[2024-07-26 09:27] LABS: Glucose - Point of Care 153 mg/dl (70-99)
--- NOTE | 2024-07-26 09:28 | CON.NEURO ---
Neuro Assessment/Plan
Assessment
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
Differential diagnosis included toxic metabolic encephalopathy as well as diffuse acute ischemic strokes
MRI of brain has been completed at this time and does demonstrate bilateral acute and subacute ischemic strokes, most likely unfortunately due to needed discontinuance of anticoagulation and transition to heparin IV
Patient was unlikely to be a candidate for either tenecteplase or intra-arterial thrombectomy due to timeframe out of window
CTA head and neck was unrevealing
Plan
Would hold anticoagulation based on the acute nature of some lesions and then restart in 24 hours
Would provide 24 hours of aspirin 300 mg then discontinue
When patient able to take by mouth, consider atorvastatin 20 mg (low dose because of elevated LFTs) if LDL is greater than 70
Permissive hypertension
Goal of normoglycemia
Provide medical educational materials
Rehabilitation evaluations
Will follow
Consultation
Order
Date of Consultation: 07/26/24
Requesting Provider: Hospitalists
Reason for Consult: Stroke Alert
Subjective/Objective
Subjective Data
Date of Service: July 26, 2024
Unknown handed
Patient presented to this hospital's emergency department in June 2020 for with sudden onset pain and swelling in her left lower extremity. At that time she was discovered to have a DVT at which time apixaban was initiated. The patient then
returned to this hospital's emergency department on July 21, 2024 and was experiencing generalized weakness and fatigue. The patient reported significant appetite loss and weight loss which had been ongoing for the past 12 months. While
hospitalized, the patient developed hypernatremia and was noted to have elevated liver function tests. The patient underwent MRI imaging of the abdomen which demonstrated a pancreatic mass and innumerable liver metastases. Plan was then made to
have the patient undergo ERCP with stenting. For the procedure, the patient was discontinued from her apixaban and initiated on heparin IV. Patient then described in the record as having a sudden change in mental status yesterday morning at
approximately 0239 hrs. which at the time was associated with provision of oxycodone. The patient then underwent ERCP and was described by the family as having worsening mentation following that event.
The patient was last seen normal at approximately 2030 hrs. yesterday and this morning at 0730 hrs. was described as having aphasia as well as reduction of the movement of the right upper extremity. Because of these issues, a stroke alert was
initiated.
The patient herself is unable to provide any medical history. Medical history is entirely obtained after review of the patient's medical records and discussion with the patient's family, at bedside.
Objective Data
Vital Signs
Temp Pulse Resp BP Pulse Ox
36.3 C 101 21 132/66 96
07/26/24 08:45 07/26/24 08:45 07/26/24 08:45 07/26/24 08:45 07/26/24 08:45
Lab Results
07/26/24 05:43
07/26/24 05:43
APTT 77.5 Sec (23.4-35.0) H 07/25/24 08:14
Sodium 151 mmol/L (135-145) H 07/26/24 05:43
Potassium 3.7 mmol/L (3.5-5.1) 07/26/24 05:43
BUN 15 mg/dl (7-17) 07/26/24 05:43
Glucose 189 mg/dl (70-99) H 07/26/24 05:43
Calcium 8.9 mg/dl (8.4-10.2) 07/26/24 05:43
Vitamin B12 > 1000 pg/ml (239-931) H 07/22/24 04:27
Patient Allergies
alendronate sodium [From Fosamax] Allergy (Verified 07/21/24 14:43)
debilitating joint pain
oxycodone [Oxycodone] Allergy (Verified 07/21/24 14:43)
Pt states if taken with antiemetic she is able to tolerate.
CVA Assessment
Onset of Stroke Symptoms
Onset of symptoms known: No
Date of onset of symptoms: 07/26/24
Time of onset of symptoms: 07:30
Time pt last seen normal is known: No
Date last time pt seen normal: 07/25/24
Time last time pt seen normal: 20:30
NIH Stroke Score
Level of Consciousness: 1 - Arousable
LOC Questions: 1-Answers one correctly
LOC Commands: 1-Performs one correctly
Best Horizontal Gaze: 1-Partial gaze palsy (to the right)
Visual Olivares: 0=Normal, no visual loss (unable fully assess)
Facial Palsy: 0=Normal, symmetrical
Motor - Right Arm: 4=No movement
Motor - Left Arm: 0=No drift 10 seconds
Motor - Right Le-None vs. gravity
Motor - Left Le-None vs. gravity
Limb Ataxia: 0-Absent
Sensation: 1-Mild loss
Best Language: 0-No aphasia
Dysarthria: 0-Normal
Extinction and Inattention: 0-No abnormality
Total Score:: 15
Tenecteplase Contraindications
Inclusion and Exclusion criteria reviewed: Yes
IAT Contraindications: Imaging doesn't show large vessel occlusion as cause of stroke
Review of Systems
-
Unable to obtain full review of systems at this time due to: Lethargy
History Source: Patient
All other systems: Reviewed and negative
Physical Exam
-
General: No Apparent Distress, Appears Chronically Ill and Appears Stated Age
Eyes: OU Absent Papilledema, Round OU, [place] Conjunctivae and No Ptosis; Negative Able to visualize OU
HEENT: Anicteric and Moist Mucous Membranes
Neck: Full Range of Motion
Respiratory: No Dyspnea
Cardiac: No JVD
GI: Non-distended
Skin: Unremarkable
Extremities: No Clubbing, No Cyanosis and No Edema
Psych: Unable to Assess
Extended Neurological Exam
Mood & Affect: Unable to Assess
Attention Span & Concentration: Awake, Unable to Perform 2 Step Request and Other (Unable to perform single step requests); Negative Alert or Interactive
Memory: Able to Recall (Own name), Reduced (For location, month, year) and Unable to Recall Personal History
Tremor: Hand Tremor Absent and Head Tremor Absent
Involuntary Movement: None
Speech: Severely Reduced Output; Negative Dysarthric
Cranial Nerve II: Left Eye: Pupillary Reactivity Unremarkable, Pupillary Size Unremarkable and Unable to Assess Visual Olivares
Cranial Nerve II: Right Eye: Pupillary Reactivity Unremarkable, Pupillary Size Unremarkable and Unable to Assess Visual Olivares
Cranial Nerves III, IV, : Extraocular Movement: Other (Conjugate gaze preference to the right with neck and head extension to the right)
Cranial Nerve VII: Facial Symmetry: Normal Facial Symmetry
Cranial Nerve VIII: Hearing: Unremarkable Hearing to Normal Conversational Volume
Cranial Nerves IX, X: Palate Movement: Unable to Assess
Cranial Nerve XI: Shoulder Shrug: Unable to Assess
Cranial Nerve XII: Tongue Protusion: Unable to Assess
Muscle Strength, Overall: Spontaneously Moves (Left upper extremity)
Muscle Bulk & Tone: Bulk Unremarkable and Tone Unremarkable
Pronator Drift: Unable to Assess
Deep Tendon Reflexes: Absent Throughout
Cold Sensation: Unable to Assess
Vibration Sensation: Unable to Assess
Touch Sensation: Withdrawal to Pain (In left upper extremity)
Coordination: Unable to Assess
Babinski Sign: Absent Bilaterally
Gait & Station: Unable to Assess
Data Reviewed
-
CT Head: Report Reviewed and Image Reviewed
MRI Head: Ordered, Report Reviewed and Image Reviewed
Labs: Report Reviewed
Reviewed with: Physician, Nurse, Patient and Family
Old Records: Summarized
Medications
-
Active Medications
Generic Name Dose Route Start Last Admin
Trade Name Freq PRN Reason Stop Dose Admin
Acetaminophen 650 mg 07/21/24 23:35 07/24/24 20:12
Acetaminophen 325 Mg Tablet PO 08/18/24 23:34 650 mg
Q6HPRN PRN Administration
mild pain/ fever>100.5F
Amlodipine Besylate 5 mg 07/24/24 12:00 07/25/24 11:16
Amlodipine 5 Mg Tablet PO 08/21/24 11:59 5 mg
DAILY INDIGO Administration
Cefepime HCl 2,000 mg 07/23/24 13:00 07/26/24 00:35
Cefepime Hcl 2,000 Mg/12.5 Ml Vial IV 2,000 mg
Q12H INDIGO Administration
Fentanyl Citrate 50 mcg 07/25/24 14:04
Fentanyl (50 Mcg/Ml) 100 Mcg/2 Ml Ampul IV 07/26/24 14:04
PACU-Q5MPRN PRN
severe pain
Fentanyl Citrate 25 mcg 07/25/24 14:04
Fentanyl (50 Mcg/Ml) 100 Mcg/2 Ml Ampul IV 07/26/24 14:04
PACU-Q5MPRN PRN
moderate pain
Heparin Sodium 4,800 units 07/23/24 12:44 07/24/24 07:47
Heparin 80 Units/Kg Iv Rebolus IV 08/20/24 12:43 2,400 units
PRN PRN Administration
PTT < OR = 64 seconds
Heparin Sodium 2,400 units 07/23/24 12:45 07/24/24 07:47
Heparin 40 Units/Kg Iv Rebolus IV 08/20/24 12:44 2,400 units
PRN PRN Administration
PTT = 64.1 to 72.9 seconds
Hydralazine HCl 5 mg 07/25/24 12:33
Hydralazine 20 Mg/Ml Vial IV 08/22/24 12:32
Q6HPRN PRN
SBP>160
Heparin Sodium 25,000 units in 250 mls @ 0 mls/hr 07/23/24 12:45 07/25/24 03:46
Heparin 28670 Units/250 Ml IV 250 mls
PER PROTOCOL INDIGO Administration
Protocol
Per Protocol
Dextrose 1,000 mls @ 140 mls/hr 07/24/24 09:00 07/26/24 09:05
D5w IV 1,000 mls
.Q7H9M INDIGO Administration
Lactobacillus/Bifidobacterium 1 cap 07/23/24 12:15 07/25/24 11:07
Lactobac/Bifidobac (Visbiome) PO 08/20/24 12:14 Not Given
DAILY INDIGO
Lidocaine 1 patch 07/22/24 14:00 07/25/24 11:17
Lidocaine 4% Topical Patch TOPICAL 08/19/24 13:59 1 patch
DAILY INDIGO Administration
Protocol
Meperidine HCl 12.5 mg 07/25/24 14:04
Meperidine 25 Mg/Ml Injection IV 07/26/24 14:04
PACU-Q5MPRN PRN
shivers
Non-Formulary Medication 1 grams 07/21/24 23:35
Colestipol [Colestid] PO 08/18/24 23:34
TID INDIGO
Ondansetron HCl 4 mg 07/25/24 14:04
Ondansetron 4 Mg/2 Ml Vial IV 07/26/24 14:04
PACU-ONCEPRN PRN
nausea/vomiting
Oxycodone HCl 5 mg 07/25/24 09:53 07/25/24 20:07
Oxycodone 5 Mg Regular Release Tablet PO 08/08/24 09:52 5 mg
Q4HPRN PRN Administration
moderate to severe pain
Pantoprazole Sodium 40 mg 07/22/24 08:00 07/26/24 08:48
Pantoprazole Sodium 40 Mg/10 Ml Vial IV 08/19/24 07:59 40 mg
DAILY INDIGO Administration
Patch Removal 0 patch 07/22/24 20:00 07/25/24 21:49
Remove Lidocaine Patch REMOVE 08/19/24 19:59 1 patch
DAILY@2000 INDIGO Administration
Prochlorperazine Edisylate 5 mg 07/25/24 14:04
Prochlorperazine 10 Mg/2 Ml Vial IV 07/26/24 14:04
PACU-ONCEPRN PRN
nausea/vomiting
Sodium Chloride 0 flush 07/21/24 23:00 07/22/24 03:01
Sodium Chloride 0.9% (Flush) Syringe IV 08/18/24 22:59 1 flush
PER PROTOCOL INDIGO Administration
Sodium Chloride 10 ml 07/22/24 08:00 07/26/24 08:48
Sodium Chloride 0.9% (Preservative Free) 10 Ml Vial IV 08/19/24 07:59 10 ml
DAILY INDIGO Administration
Sterile Water 10 ml 07/23/24 13:00 07/26/24 00:35
Sterile Water For Injection 10 Ml Vial IV 08/20/24 12:59 10 ml
Q12H INDIGO Administration
Home Medications
�Medication �Instructions �Recorded
acetaminophen 500 mg tablet 1,000 mg PO QIDPRN PRN mild pain 12/20/23
(Tylenol Extra Strength)
amlodipine 5 mg-benazepril 40 mg 1 cap PO HS Blood Pressure 12/20/23
capsule
apixaban 5 mg tablet (Eliquis) 5 mg PO BID Blood Clot 07/21/24
Prevention/Tx
colestipol 1 gram tablet (Colestid) 1 g PO TID High Cholesterol 07/21/24
dimenhydrinate 50 mg tablet 50 mg PO Q8HPRN PRN vertigo 07/21/24
(Dramamine)
prochlorperazine maleate 10 mg 10 mg PO Q6HPRN PRN nausea and 07/21/24
tablet (Compazine) vomiting
Past History
Past History
ED Past Medical History: Cancer (pancreatic), Fibromyalgia, HTN, Other (chronic dizziness, sleep apnea, osteoporosis, presumed transient global amnesia), Other (OSCAR, Heme Positive Stool, Abnormal LFTs, LLE DVT) and Other (IBS)
ED Past Surgical History: Appendectomy, Cholecystectomy, (X 3), Orthopedic (Shoulder surgery), Tonsilectomy and Other (Cataract surgery)
Social History
Tobacco: Non-smoker
Alcohol: None
Personal:
Living: with family
Employment: Employed
Family History
Family History: Other (reviewed and non-contributory)
[place] Coma Scale
[place] Coma Scale
Date of Subsequent GCS: 07/26/24
Time of Subsequent GCS: 10:05
Eye Opening: To Pain
Verbal Response: Confused
Motor Response: Localizes to Pain
GCS Total Score: 11
--- NOTE | 2024-07-26 10:00 | PTCARENOTE ---
Pt sleeping at shift change, appeared comfortable. Woken for AM meds at approx 0900. Grimacing, appeared to be in pain. Slow to wake up, unable to speak clearly. Attempted to turn patient at that time to reposition - R arm noted to be very stiff, pt
unable to move it at all and wincing with movement. TT hospitalist regarding change in condition. Support provided to family at bedside. Stroke alert called. Difficult to perform NIH d/t lethargy/pain/mentation - NIH score 17.
[2024-07-26] MEDS: LIDOCAINE 4% PATCH TOPICAL (11:16)
[2024-07-26] MEDS: NORVASC PO (11:16)
[2024-07-26] MEDS: VISBIOME PO (11:16)
--- NOTE | 2024-07-26 11:42 | W.PN.HOSP.TC ---
Today's Communication/Plan
-
monitor vitals
see plan
MRI with CVA; discussed with neurology. Continue with heparin drip for now
Overall prognosis appears guarded, this was discussed with family. Oncology consulted to see if any options.
per GI, stent will likely be palliative if patient is stable enough to get the procedure
Assessment / Plan
Assessment / Plan
General: Well Developed, Well Nourished and No Apparent Distress
HEENT: NormoCephalic, Moist mucous membranes and Atraumatic
Respiratory: Clear
Cardiac: S1/S2 and Regular Rhythm; No Murmur or Rub
GI: Soft, Non Tender, Non Distended and Normal Bowel Sounds
Musculoskeletal: No Edema
Neuro: facial droop
Psych: Calm
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
agree with evaluation given weight loss and early satiety
Monitor LFTs
denies abdominal pain
MRI abdomen with pancreatic mass with innumerable liver metastases. Status post EUS. Acquired duodenal stenosis. Per gastroenterology a mass was identified in the pancreatic head. There was also metastasis to the liver. Few metastatic lesions
were found in the left lobe of the liver with fine-needle aspiration was performed. ERCP was performed however patient had duodenal stenosis. Per gastroenterology patient will need biliary stent in the future via EUS guided choledocho duodenostomy
which can be done outpatient. GI will follow-up with patient next week and will give information regarding follow-up at [facility].
Overall prognosis appears guarded, me and GI discussed with family. They wanted to also discussed with oncology regarding if there are any options. Oncology consulted.
questionable GI bleed
-Heme positive stool; no profuse bleeding so far
-Trend hemoglobin, transfuse if hemoglobin less than 7
-Hemoglobin stable so far. given recent extensive DVT, started IV heparin for now; discussed with GI. will eventually transition to eliquis
GI following
PPI
Acute/subacute CVA
stroke alert 07/26
CT without any hemorrhage. Neurology following
MRI with acute CVA
neurology following
UTI
sepsis likely 2/2 above was present on admission; no bx checked on admission
follow urine cx growing Pseudomonas, switched antibiotics to cefepime
bladder scan
Generalized weakness/fatigue likely from poor oral intake
-PT/OT following
# Hypernatremia likely from dehydration
# Hypokalemia likely from oral poor intake
# Acute kidney injury likely from dehydration
Replete potassium, increase D5 water. Nephrology following
Urine awesome low, could be diabetes insipidus. Will need accurate I's and O's. Now with [place] catheter.
# History of hypertension
restart amlodipine
hold aceinh
# DVT of left lower extremities
-Hold Eliquis for now; discussed with GI. Started on heparin
yet to see hematology outpatient
# Hyperlipidemia
-Colestipol continued
# Chronic low back pain
fibromyalgia
-Tylenol prn for pain
oxycodone prn
follows up with rheumatology outpatient
#DVT prophylaxis
-scd,heparin
#CODE status
-full code
I spent a total of 52 minutes with the patient or on the floor. More than 50% of this time involved counseling and coordination of care.
Anticipated Discharge: > 48 hours
Subjective/Interval History
-
Date of Service: July 26, 2024
STROKE ALERT THIS MORNING
Objective Data
-
Labs:
Laboratory Results
07/26/24 07/26/24
05:43 11:22
WBC 10.2
Hgb 11.7 L
Hct 36.9 L
Plt Count 198
APTT Pending
Sodium 151 H
Potassium 3.7
Chloride 120 H
Carbon Dioxide 23
BUN 15
Creatinine 1.1 H
Glucose 189 H
Calcium 8.9
Total Bilirubin 0.6
AST 37 H
ALT 31
Alkaline Phosphatase 446 H
Vital Signs:
Vital Signs
Temp Pulse Resp BP Pulse Ox
97.4 F 101 21 132/66 96
07/26/24 08:45 07/26/24 08:45 07/26/24 08:45 07/26/24 08:45 07/26/24 08:45
I&O
07/25/24 07/26/24 07/27/24
06:59 06:59 06:59
Intake Total 1360 / 1360 1690 / 1690
Output Total 575 / 575 2295 / 2295
Balance 785 / 785 -605 / -605
[2024-07-26 12:20] LABS: APTT 35.9 Sec (23.4-35.0)
[2024-07-26] MEDS: HEPARIN 25000 UNITS/250 ML IV (12:22)
--- NOTE | 2024-07-26 14:11 | W.PN.GI.CBS2 ---
Today's Communication / Plan
-
continue current meds and supportive care
Oncology consult
CA 19-9
Assessment / Plan
-
1. Pancreatic mass with multiple liver lesions noted most likely pancreatic CA with mets to liver status post EUS with FNA of liver mets ERCP was unable to be completed because of severe duodenal stenosis. Discussed with daughter and at
bedside that eventually she will need to be followed up at [facility] for biliary stent in the future via EUS guided choledochoduodenostomy. But given that she also now has acute infarcts on MRI brain thought to be embolic in origin overall prognosis may
be poor discussed with Dr. Maravilla he will also get oncology consult. Will get CA 19-9. May also need to consider hepatic encephalopathy with multiple liver mets but altered mental status may be related to acute CVA hold on ammonia
2. DVT on heparin currently no overt GIB, monitor HB (stable )
Subjective
Subjective
Date of Service: July 26, 2024
Patient appeared very drowsy arousable with verbal and painful stimulus and able to answer her name. Noted results of MRI she has new (infarcts bilateral cerebellar and cerebral hemispheres possibly embolic etiology)
Denied abdominal pain no nausea or vomiting
Objective
Data Reviewed
Laboratory Data:
Laboratory Results
07/26/24 05:43
07/26/24 05:43
Laboratory Results
APTT 35.9 Sec (23.4-35.0) H 07/26/24 11:52
Magnesium 2.3 mg/dl (1.6-2.3) 07/21/24 14:54
Total Bilirubin 0.6 mg/dl (0.2-1.3) 07/26/24 05:43
AST 37 U/L (14-36) H 07/26/24 05:43
ALT 31 U/L (0-35) 07/26/24 05:43
Alkaline Phosphatase 446 U/L (38-126) H 07/26/24 05:43
Vital Signs and I&O:
Vital Signs
Temp Pulse Resp BP Pulse Ox
97.4 F 101 21 132/66 96
07/26/24 08:45 07/26/24 08:45 07/26/24 08:45 07/26/24 08:45 07/26/24 08:45
I&O
07/25/24 07/26/24 07/27/24
06:59 06:59 06:59
Intake Total 1360 / 1360 1690 / 1690
Output Total 575 / 575 2295 / 2295
Balance 785 / 785 -605 / -605
07/26/24 MRI brain
IMPRESSION:
Numerous scattered tiny nonhemorrhagic acute/subacute infarcts within the bilateral cerebral and cerebellar hemispheres, possibly of embolic etiology.
07/25/24 ERCP
Impression: - Acquired duodenal stenosis.
Recommendation: - [facility] for [facility] care.
- Clear liquid diet today.
- Will likely need biliary stent in the future via EUS
guided choledochoduodenostomy.
07/25/24 EUS
Impression: - Normal esophagus.
- No gross lesions in the entire stomach.
- Acquired duodenal stenosis. Dilated.
- A mass was identified in the pancreatic head. This
was staged Nx M1 (based on metastasis to liver and
pending cytologic confirmation) by endosonographic
criteria.
- A few metastatic lesions were found in the left lobe
of the liver. Fine needle aspiration performed.
- There was dilation in the common bile duct which
measured up to 13 mm.
Physical Exam
Physical Exam
Cardiology: Normal Sinus Rhythm
Pulmonary: Clear
GI: Soft, Non Distended, Tender (Tender in the epigastric area) and Normal Bowel Sounds
Neuro: Other (drowsy, arousable to pain and verbal stimuli, oriented to person and place)
[2024-07-26] MEDS: ROXICODONE 5 MG PO (14:38)
--- NOTE | 2024-07-26 14:49 | W.PN.NEPH.PH ---
Today's Communication / Plan
-
consider DDAVP, titrate d5w
Assessment/Plan
-
IMP:
Generalized weakness/fatigue likely from poor oral intake
GI bleed likely due to Eliquis
UTI
sepsis likely 2/2 above
Hypernatremia likely from dehydration
Hypokalemia
Acute kidney injury
Transaminitis
History of hypertension
DVT of left lower extremities
Hyperlipidemia
Chronic low back pain
Plan:
A/w gen weakness, FTT and noted wiley, hb 13
mild OSCAR-cr 1.0 stable, baseline cr 0.6-0.8, suspect prerenal with poor intake and low BPs
PO intake very poor
Hypernatremia-sodium remians high
U osmo is low at 112 suspect may have partial DI
noted CVA on MRI could be causing ADH suppression
slightly polyuric-consider low dose DDAVP if pt wants aggressive care
cont D5w titrate as needed
BP are stable, holding Amlodipine and ACEI
abx per primary
hgb relatively stable
s/p EUS 07/25, FNA liver lesion , MRI shows pancreatic mass with mets
encourage po intake
poor prognosis
-
-
Date of Service: July 26, 2024
CC / HPI / ROS
-
Chief Complaint:
Hypernatremia
OSCAR
History of Present Illness:
creatinine stable at 1
K up to 3.7
BP stable
sodium at 151 still
stroke alert this am, MRI confirms
Review of Systems:
non oliguric with harrell
poor po intake
Labs
-
Labs:
WBC 10.2 10^3/uL (4.8-10.8) 07/26/24 05:43
RBC 3.74 10^6/uL (4.20-5.40) L 07/26/24 05:43
Hgb 11.7 g/dL (12.0-16.0) L 07/26/24 05:43
Hct 36.9 % (37.0-47.0) L 07/26/24 05:43
Plt Count 198 10^3/uL (130-400) 07/26/24 05:43
Sodium 151 mmol/L (135-145) H 07/26/24 05:43
Potassium 3.7 mmol/L (3.5-5.1) 07/26/24 05:43
Chloride 120 mmol/L (98-107) H 07/26/24 05:43
Carbon Dioxide 23 mmol/L (22-30) 07/26/24 05:43
BUN 15 mg/dl (7-17) 07/26/24 05:43
Creatinine 1.1 mg/dL (0.6-1.0) H 07/26/24 05:43
eGFR 51.75 07/26/24 05:43
Glucose 189 mg/dl (70-99) H 07/26/24 05:43
Calcium 8.9 mg/dl (8.4-10.2) 07/26/24 05:43
Albumin 2.6 g/dl (3.5-5.0) L 07/26/24 05:43
Physical Exam
-
Vital Signs:
Vital Signs
Temp Pulse Resp BP Pulse Ox
97.4 F 101 21 132/66 96
07/26/24 08:45 07/26/24 08:45 07/26/24 08:45 07/26/24 08:45 07/26/24 08:45
Cardiovascular:: Regular rate and rhythm
Respiratory:: Bilateral: CTA (decreased)
Lung Excursion:: Normal
Abdomen:: Nontender and Soft
Extremity Edema:: None: Bilateral:
Harrell Catheter: Yes
[2024-07-26 15:45] LABS: HDL Cholesterol 44 mg/dl; LDL Cholesterol, Calculated 52 mg/dl; Total Cholesterol 114 mg/dl (50-199); Triglyceride 93 mg/dl (10-149); Very Low Density Lipoprotein 18 mg/dl (0-30)
[2024-07-26] MEDS: ASPIRIN 300 MG RECTAL (16:16)
[2024-07-26 16:32] VITALS: BP 144/79
[2024-07-26] MEDS: MORPHINE SULFATE 1 MG IV ×2 (17:16→20:31)
[2024-07-26 18:24] LABS: CEA 2380 ng/ml
--- NOTE | 2024-07-26 18:44 | PTCARENOTE ---
Neuro checks continued throughout shift - mentation/alertness waxed/waned. NIH remained 15-17. Alert and speaking with for brief periods. R arm remains immobile. All other limbs with poor strength. Continued turning and repositioning/pain
control efforts.
[2024-07-26 19:00] VITALS: BP 138/63
[2024-07-27] MEDS: STERILE WATER FOR INJECTION 10 ML IV ×2 (01:08→15:28)
[2024-07-27] MEDS: MAXIPIME 2000 MG IV ×2 (01:09→15:27)
[2024-07-27] MEDS: D5W 1000 IV ×3 (01:57→19:41)
[2024-07-27] MEDS: MORPHINE SULFATE 1 MG IV ×6 (01:58→21:39)
[2024-07-27 02:10] VITALS: BP 115/55
[2024-07-27 02:28] LABS: Lipase 287 U/L (23-300)
[2024-07-27 03:00] VITALS: BP 131/64
[2024-07-27 05:45] LABS: ALT (SGPT) 31 U/L (0-35); AST (SGOT) 45 U/L (14-36); Albumin 2.7 g/dl (3.5-5.0); Alkaline Phosphatase 418 U/L (38-126); Blood Urea Nitrogen 17 mg/dl (7-17); Calcium 9.5 mg/dl (8.4-10.2); Carbon Dioxide 24 mmol/L (22-30); Chloride 119 mmol/L (98-107); Estimated Creatinine Clearance 35 ml/min; Glucose 157 mg/dl (70-99); Potassium 3.5 mmol/L (3.5-5.1); Sodium 149 mmol/L (135-145); Total Bilirubin 0.7 mg/dl (0.2-1.3); Total Protein 5.3 g/dl (6.3-8.2); eGFR 46.62
[2024-07-27 06:00] VITALS: BMI 22.7
[2024-07-27 06:33] LABS: % Basophils 0.2 % (0-2); % Immature Granulocytes 0.4 % (0-0.5); % Lymphocytes 12.6 % (20.5-51.1); % Monocytes 9.1 % (1.7-9.3); % Neutrophils 76.7 % (42.2-75.2); Absolute Eosinophils 0.1 10^3/uL (0-0.7); Absolute Immature Granulocytes 0.1 10^3/uL (0-0.05); Absolute Lymphocytes 1.6 10^3/uL (1.2-3.4); Absolute Monocytes 1.1 10^3/uL (0.1-0.6); Absolute Neutrophils 9.5 10^3/uL (1.4-6.5); Hematocrit 34.4 % (37.0-47.0); Hemoglobin 11.4 g/dL (12.0-16.0); Mean Corp Hgb Conc. 33.1 g/dL (33.0-37.0); Mean Corpuscular Hgb 32.1 pg (27.0-31.0); Mean Corpuscular Volume 96.9 fL (81.0-99.0); Mean Platelet Volume 10.7 fL (7.4-10.4); Nucleated Red Blood Cells % 0 %; Platelet Count 154 10^3/uL (130-400); Red Blood Cell Count 3.55 10^6/uL (4.20-5.40); White Blood Cell Count 12.4 10^3/uL (4.8-10.8)
[2024-07-27 08:17] VITALS: BP 118/64
[2024-07-27] MEDS: NSS (PRESERVATIVE FREE) 10 ML IV (08:18)
[2024-07-27] MEDS: PROTONIX IV 40 MG IV (08:18)
[2024-07-27] MEDS: NORVASC PO (08:20)
[2024-07-27] MEDS: LIDOCAINE 4% PATCH 1 PATCH TOPICAL (08:20)
[2024-07-27] MEDS: VISBIOME PO (08:20)
--- NOTE | 2024-07-27 08:48 | CON.ONC ---
Impression
Impression
presumed metastatic pancreas cancer, biopsy pending from 07/25
multiple acute strokes
recent LE DVT
Plan
Plan
Discussed w/ and daughter the two significant issues, namely metastatic pancreas cancer leading to duodenal obstruction and multiple strokes with very poor performance status
She's not a candidate for further GI interventions with current neuro status
Even without strokes, treatment of pancreas cancer would be palliative, with life expectancy around 1 year for a patient with a good performance status
Would continue heparin for now, monitor clinically
If no meaningful improvement in next 1-2 days, would recommend hospice/comfort measures
Rec. genetic counseling testing of family members in setting of pancreas and breast cancer in family. d/w daughter.
Patient History
History of Present Illness
This is a 79yo who was diagnosed w/ DVT in mid-Jun 2024, and mini-stroke just prior to that, who presented to the ER on 07/21/24 with weakness, fatigue, and decreased appetite, ongoing for 'about a year.' ER w/u was noted for dehydration,
hypokalemia, OSCAR, heme+ stool/melena and elevated LFTs. Abd imaging (MRI) showed a mass in the head of the pancreas up to 4.2cm with dilated main PD, and innumerable liver mets. EUS was done 07/25, with biopsy of a liver met. ERCP was performed; an
acquired severe stenosis was found in the first part of the duodenum, and was non-traversed. Plan was for future biliary stent via EUS guided choledochoduodenostomy (@ [place]). On 07/26/24 am, she was noted to have aphasia and RUE weakness. Brain MRI
showed numerous tiny nonhemorrhagic acute/subacute infarcts.
CA19-9 is pending, CEA is 2380.
Past-Medical/Surgical History
Past Medical History
Past Medical History: Reports Other
Additional Past Medical History:
Osteoporosis
Fibromyalgia
Hypertension
Transaminitis
Vertigo
Fatty liver disease
Sleep apnea
Carpal tunnel
Past Surgical History: Reports Other
Additional Past Surgical History:
Tonsillectomy
Catheter removal
Surgery
Right shoulder repair
Cholecystectomy
TMJ procedure
Social History
Tobacco: Non-smoker
Alcohol: None
Drug: None
Personal:
Living: With Family
Family History
Family History: breast cancer
Patient Medication
�Medication �Instructions �Recorded �Confirmed �Last Taken �Type
acetaminophen 500 mg tablet 1,000 mg PO QIDPRN PRN mild pain 12/20/23 07/21/24 12/20/23 History
(Tylenol Extra Strength)
amlodipine 5 mg-benazepril 40 mg 1 cap PO HS Blood Pressure 12/20/23 07/21/24 01/01/24 History
capsule
apixaban 5 mg tablet (Eliquis) 5 mg PO BID Blood Clot 07/21/24 07/21/24 Unknown History
Prevention/Tx
colestipol 1 gram tablet (Colestid) 1 g PO TID High Cholesterol 07/21/24 07/21/24 Unknown History
dimenhydrinate 50 mg tablet 50 mg PO Q8HPRN PRN vertigo 07/21/24 07/21/24 Unknown History
(Dramamine)
prochlorperazine maleate 10 mg 10 mg PO Q6HPRN PRN nausea and 07/21/24 07/21/24 Unknown History
tablet (Compazine) vomiting
Active Medications
Generic Name Dose Route Start Last Admin
Trade Name Freq PRN Reason Stop Dose Admin
Acetaminophen 650 mg 07/21/24 23:35 07/24/24 20:12
Acetaminophen 325 Mg Tablet PO 08/18/24 23:34 650 mg
Q6HPRN PRN Administration
mild pain/ fever>100.5F
Amlodipine Besylate 5 mg 07/24/24 12:00 07/27/24 08:20
Amlodipine 5 Mg Tablet PO 08/21/24 11:59 Not Given
DAILY INDIGO
Cefepime HCl 2,000 mg 07/23/24 13:00 07/27/24 01:09
Cefepime Hcl 2,000 Mg/12.5 Ml Vial IV 2,000 mg
Q12H INDIGO Administration
Heparin Sodium 4,800 units 07/23/24 12:44 07/24/24 07:47
Heparin 80 Units/Kg Iv Rebolus IV 08/20/24 12:43 2,400 units
PRN PRN Administration
PTT < OR = 64 seconds
Heparin Sodium 2,400 units 07/23/24 12:45 07/24/24 07:47
Heparin 40 Units/Kg Iv Rebolus IV 08/20/24 12:44 2,400 units
PRN PRN Administration
PTT = 64.1 to 72.9 seconds
Hydralazine HCl 5 mg 07/25/24 12:33
Hydralazine 20 Mg/Ml Vial IV 08/22/24 12:32
Q6HPRN PRN
SBP>160
Heparin Sodium 25,000 units in 250 mls @ 0 mls/hr 07/23/24 12:45 07/26/24 12:22
Heparin 19943 Units/250 Ml IV 250 mls
PER PROTOCOL INDIGO Administration
Protocol
Per Protocol
Dextrose 1,000 mls @ 140 mls/hr 07/24/24 09:00 07/27/24 01:57
D5w IV 1,000 mls
.Q7H9M INDIGO Administration
Lactobacillus/Bifidobacterium 1 cap 07/23/24 12:15 07/27/24 08:20
Lactobac/Bifidobac (Visbiome) PO 08/20/24 12:14 Not Given
DAILY INDIGO
Lidocaine 1 patch 07/22/24 14:00 07/27/24 08:20
Lidocaine 4% Topical Patch TOPICAL 08/19/24 13:59 1 patch
DAILY INDIGO Administration
Protocol
Morphine Sulfate 1 mg 07/27/24 03:43 07/27/24 07:02
Morphine 2 Mg/Ml Syringe IV 08/10/24 03:41 1 mg
Q4HPRN PRN Administration
pain
Non-Formulary Medication 1 grams 07/21/24 23:35
Colestipol [Colestid] PO 08/18/24 23:34
TID INDIGO
Oxycodone HCl 5 mg 07/25/24 09:53 07/26/24 14:38
Oxycodone 5 Mg Regular Release Tablet PO 08/08/24 09:52 5 mg
Q4HPRN PRN Administration
moderate to severe pain
Pantoprazole Sodium 40 mg 07/22/24 08:00 07/27/24 08:18
Pantoprazole Sodium 40 Mg/10 Ml Vial IV 08/19/24 07:59 40 mg
DAILY INDIGO Administration
Patch Removal 0 patch 07/22/24 20:00 07/26/24 21:46
Remove Lidocaine Patch REMOVE 08/19/24 19:59 Not Given
DAILY@2000 INDIGO
Sodium Chloride 0 flush 07/21/24 23:00 07/22/24 03:01
Sodium Chloride 0.9% (Flush) Syringe IV 08/18/24 22:59 1 flush
PER PROTOCOL INDIGO Administration
Sodium Chloride 10 ml 07/22/24 08:00 07/27/24 08:18
Sodium Chloride 0.9% (Preservative Free) 10 Ml Vial IV 08/19/24 07:59 10 ml
DAILY INDIGO Administration
Sterile Water 10 ml 07/23/24 13:00 07/27/24 01:08
Sterile Water For Injection 10 Ml Vial IV 08/20/24 12:59 10 ml
Q12H INDIGO Administration
Physical Exam
-
General: Appears Chronically Ill and Other (minimally responsive); Negative Conversant
HEENT: Negative Jaundice
GI: Soft
Extremities: No C/C/E
Neurology: Other (minimally responsive)
Skin: Warm and Dry
Labs
Lab Results
WBC 12.4 10^3/uL (4.8-10.8) H 07/27/24 05:02
RBC 3.55 10^6/uL (4.20-5.40) L 07/27/24 05:02
Hgb 11.4 g/dL (12.0-16.0) L 07/27/24 05:02
Hct 34.4 % (37.0-47.0) L 07/27/24 05:02
MCV 96.9 fL (81.0-99.0) 07/27/24 05:02
MCH 32.1 pg (27.0-31.0) H 07/27/24 05:02
MCHC 33.1 g/dL (33.0-37.0) 07/27/24 05:02
RDW 18.0 % (11.5-14.5) H 07/27/24 05:02
Plt Count 154 10^3/uL (130-400) D 07/27/24 05:02
MPV 10.7 fL (7.4-10.4) H 07/27/24 05:02
Abs Immat Gran (auto) 0.1 10^3/uL (0-0.05) H 07/27/24 05:02
Absolute Neuts (auto) 9.5 10^3/uL (1.4-6.5) H 07/27/24 05:02
Absolute Lymphs (auto) 1.6 10^3/uL (1.2-3.4) 07/27/24 05:02
Absolute Monos (auto) 1.1 10^3/uL (0.1-0.6) H 07/27/24 05:02
Absolute Eos (auto) 0.1 10^3/uL (0-0.7) 07/27/24 05:02
Absolute Basos (auto) 0.0 10^3/uL (0-0.2) 07/27/24 05:02
Immature Gran % 0.4 % (0-0.5) 07/27/24 05:02
Neutrophils % 76.7 % (42.2-75.2) H 07/27/24 05:02
Lymphocytes % 12.6 % (20.5-51.1) L 07/27/24 05:02
Monocytes % 9.1 % (1.7-9.3) 07/27/24 05:02
Eosinophils % 1.0 % (0-6) 07/27/24 05:02
Basophils % 0.2 % (0-2) 07/27/24 05:02
Creatinine 1.2 mg/dL (0.6-1.0) H 07/27/24 05:02
Vital Signs
Vital Signs
Temp Pulse Resp BP Pulse Ox
98 F 87 18 118/64 98
07/27/24 08:17 07/27/24 08:17 07/27/24 08:17 07/27/24 08:17 07/27/24 08:17
--- NOTE | 2024-07-27 09:26 | W.PN.NEURO.1 ---
Today's Communication / Plan
-
May restart anticoagulation in morning of July 28, 2024, would avoid heparin boluses if at all possible
When patient able to take by mouth, atorvastatin 20 mg (low dose because of elevated LFTs) if LDL is greater than 70
Goal of normotension starting 24 hours after onset of symptoms
Neuro Assessment/Plan
Assessment
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
Differential diagnosis included toxic metabolic encephalopathy as well as diffuse acute ischemic strokes
MRI of brain has been completed at this time and does demonstrate bilateral acute and subacute ischemic strokes, most likely unfortunately due to needed discontinuance of anticoagulation and transition to heparin IV
CTA head and neck was unrevealing
Given single dose of aspirin per rectum between onset of stroke and restart of anticoagulation due to risk of hemorrhagic conversion
Plan
May restart anticoagulation in morning of July 28, 2024, would avoid heparin boluses if at all possible
When patient able to take by mouth, atorvastatin 20 mg (low dose because of elevated LFTs) if LDL is greater than 70
Goal of normotension starting 24 hours after onset of symptoms
Goal of normoglycemia
Rehabilitation evaluations
Will follow as needed.
Subjective/Objective
Subjective Data
Date of Service: July 27, 2024
Objective Data
Vital Signs
Temp Pulse Resp BP Pulse Ox
36.6 C 87 18 118/64 98
07/27/24 08:17 07/27/24 08:17 07/27/24 08:17 07/27/24 08:17 07/27/24 08:17
Lab Results
07/27/24 05:02
07/27/24 05:02
APTT Cancelled 07/26/24 18:00
Sodium 149 mmol/L (135-145) H 07/27/24 05:02
Potassium 3.5 mmol/L (3.5-5.1) 07/27/24 05:02
BUN 17 mg/dl (7-17) 07/27/24 05:02
Glucose 157 mg/dl (70-99) H 07/27/24 05:02
Calcium 9.5 mg/dl (8.4-10.2) 07/27/24 05:02
LDL Cholesterol, Calc 52 mg/dl 07/26/24 05:43
Vitamin B12 > 1000 pg/ml (239-931) H 07/22/24 04:27
Patient Allergies
alendronate sodium [From Fosamax] Allergy (Verified 07/21/24 14:43)
debilitating joint pain
oxycodone [Oxycodone] Allergy (Verified 07/21/24 14:43)
Pt states if taken with antiemetic she is able to tolerate.
--- NOTE | 2024-07-27 10:04 | CM ---
Case Management Consult for Hospice Consult; referral sent via [facility]; wool tamper honing machine operator semiautomatic notified via tiger text
--- NOTE | 2024-07-27 11:04 | HOSPNOTE ---
Referral recieved- Hospice nurse met with family at bedside- Explained hospice and the philosophy. Family is not decided on hospice fully yet. Also they are not sure if patient would go to facility vs home with paid caregivers. They have our office
number to reach out when a decision is made. We will continue to follow and be available.
[2024-07-27] MEDS: D5W IV (11:06)
--- NOTE | 2024-07-27 11:59 | W.PN.HOSP.TC ---
Today's Communication/Plan
-
monitor vitals
see plan
prognosis guarded
cw current management
Discussed with family at bedside
restart heparin when ok with neurology
Assessment / Plan
Assessment / Plan
General: Well Developed, Well Nourished and No Apparent Distress
HEENT: NormoCephalic, Moist mucous membranes and Atraumatic
Respiratory: Clear
Cardiac: S1/S2 and Regular Rhythm; No Murmur or Rub
GI: Soft, Non Tender, Non Distended and Normal Bowel Sounds
Musculoskeletal: No Edema
Neuro: facial droop
Psych: Calm
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
agree with evaluation given weight loss and early satiety
Monitor LFTs
denies abdominal pain
MRI abdomen with pancreatic mass with innumerable liver metastases. Status post EUS. Acquired duodenal stenosis. Per gastroenterology a mass was identified in the pancreatic head. There was also metastasis to the liver. Few metastatic lesions
were found in the left lobe of the liver with fine-needle aspiration was performed. ERCP was performed however patient had duodenal stenosis. Per gastroenterology patient will need biliary stent in the future via EUS guided choledocho duodenostomy
which can be done outpatient. Per GI these procedures are palliative. Gi will discuss with patient's family
Overall prognosis appears guarded, me and GI discussed with family. Oncology evaluated as well and discussed with family. Prognosis guarded. Spoke with daughter again 07/27. Family wants to consider all the options and then will decide. Daughter
did show interest in speaking with hospice. mine manager consulted for hospice. CODE STATUS was also discussed and patient family wants to be remain a full code currently however will speak to other family members in extent today.
Acute/subacute CVA
stroke alert 07/26
CT without any hemorrhage. Neurology following
MRI with acute CVA
neurology following; wanted to hold off on IV hep; restart when ok with neuro
neurochecks
speech evaluation
UTI
sepsis likely 2/2 above was present on admission; no bx checked on admission
follow urine cx growing Pseudomonas, switched antibiotics to cefepime
bladder scan
questionable GI bleed
-Heme positive stool; no profuse bleeding so far
-Trend hemoglobin, transfuse if hemoglobin less than 7
-Currently off AC due to recent stroke
GI following
PPI
Generalized weakness/fatigue likely from poor oral intake
-PT/OT following
# Hypernatremia likely from dehydration
# Hypokalemia likely from oral poor intake
# Acute kidney injury likely from dehydration
Replete potassium, increase D5 water. Nephrology following. can do DDAVP if family wants full care
Urine awesome low, could be diabetes insipidus. Will need accurate I's and O's. Now with [place] catheter.
# History of hypertension
restart amlodipine
hold aceinh
# DVT of left lower extremities
-Hold Eliquis for now; discussed with GI. Started on heparin
yet to see hematology outpatient
# Hyperlipidemia
-Colestipol continued
# Chronic low back pain
fibromyalgia
-Tylenol prn for pain
morphine prn
follows up with rheumatology outpatient
#DVT prophylaxis
-scd,heparin
#CODE status
-full code
Overall prognosis appears guarded, me and GI discussed with family. Oncology evaluated as well and discussed with family. Prognosis guarded. Spoke with daughter again 07/27. Family wants to consider all the options and then will decide. Daughter
did show interest in speaking with hospice. mine manager consulted for hospice. CODE STATUS was also discussed and patient family wants to be remain a full code currently however will speak to other family members in extent today.
I spent a total of 53 minutes with the patient or on the floor. More than 50% of this time involved counseling and coordination of care.
Anticipated Discharge: > 48 hours
Subjective/Interval History
-
Date of Service: July 27, 2024
lethargic. has pain
Objective Data
-
Labs:
Laboratory Results
07/27/24
05:02
WBC 12.4 H
Hgb 11.4 L
Hct 34.4 L
Plt Count 154 D
Sodium 149 H
Potassium 3.5
Chloride 119 H
Carbon Dioxide 24
BUN 17
Creatinine 1.2 H
Glucose 157 H
Calcium 9.5
Total Bilirubin 0.7
AST 45 H
ALT 31
Alkaline Phosphatase 418 H
Vital Signs:
Vital Signs
Temp Pulse Resp BP Pulse Ox
98 F 87 18 118/64 98
07/27/24 08:17 07/27/24 08:17 07/27/24 08:17 07/27/24 08:17 07/27/24 08:17
I&O
07/26/24 07/27/24 07/28/24
06:59 06:59 06:59
Intake Total 1690 / 1690
Output Total 2295 / 2295 2500 / 2500
Balance -605 / -605 -2500 / -2500
--- NOTE | 2024-07-27 12:12 | PTOTSP ---
Speech Therapy Evaluation:
Pt exhibits clinical signs of oropharyngeal dysphagia, likely acute in nature related to generalized weakness, overall level of mentation, and acute/subacute infarcts in bilateral cerebral/cerebellar hemispheres. Pt with mild anterior loss and slow
oral manipulation of ice chips and thin liquids via tsp, however demonstrated no overt s/sx of aspiration across PO trials.
Recommend:
1. Continue clear liquid diet (per GI) via TSP ONLY
2. Medications non-oral
3. Strict aspiration precautions: upright all meals, small controlled tsp amounts, slow rate, oral care 3x/daily, 1:1 assistance and supervision with PO intake
4. d/c oral diet if pt showing signs of respiratory distress, s/sx of aspiration, or if CXR with concerns for aspiration
5. ST to follow
--- NOTE | 2024-07-27 14:40 | W.PN.GI.CBS2 ---
Today's Communication / Plan
-
full liquids as recc by speech
Assessment / Plan
-
1. Pancreatic mass with multiple liver lesions noted most likely pancreatic CA with mets to liver status post EUS with FNA of liver mets ERCP was unable to be completed because of severe duodenal stenosis. initial plan was to refer to [facility] for
biliary stent in the future via EUS guided choledochoduodenostomy. But given that she also now has acute infarcts on MRI brain thought to be embolic in origin overall prognosis may be poor discussed with Dr. Maravilla. noted oncology input also. CEA
elevated, CA 19-9- P. Discussed with daughter and son they would like us to discuss with GI at [facility] to see if any palliative endoscopic procedure to alleviate her duodenal stenosis and biliary obstruction/stent is an option and whether they would
consider transferring her as an inpatient for these palliative procedures will place a call out tomorrow and they are also considering hospice care especially if [place] transfer is not an option. Noted input from oncology also given poor performance
status with acute CVA may not be a candidate moving forward for palliative chemotherapy unless she improves from her stroke
2. DVT was on heparin currently on hold, no overt GIB, monitor HB (stable )
Subjective
Subjective
Date of Service: July 27, 2024
Patient slightly more awake today and able to respond to questions family at bedside denies any abdominal pain currently does complain of back pain and leg pain
Objective
Data Reviewed
Laboratory Data:
Laboratory Results
07/27/24 05:02
07/27/24 05:02
Laboratory Results
APTT Cancelled 07/26/24 18:00
Magnesium 2.3 mg/dl (1.6-2.3) 07/21/24 14:54
Total Bilirubin 0.7 mg/dl (0.2-1.3) 07/27/24 05:02
AST 45 U/L (14-36) H 07/27/24 05:02
ALT 31 U/L (0-35) 07/27/24 05:02
Alkaline Phosphatase 418 U/L (38-126) H 07/27/24 05:02
Lipase 287 U/L (23-300) 07/27/24 02:08
Vital Signs and I&O:
Vital Signs
Temp Pulse Resp BP Pulse Ox
98 F 87 18 118/64 98
07/27/24 08:17 07/27/24 08:17 07/27/24 08:17 07/27/24 08:17 07/27/24 08:17
I&O
07/26/24 07/27/24 07/28/24
06:59 06:59 06:59
Intake Total 1690 / 1690
Output Total 2295 / 2295 2500 / 2500
Balance -605 / -605 -2500 / -2500
Physical Exam
Physical Exam
Cardiology: Normal Sinus Rhythm
Pulmonary: Clear
GI: Soft, Non Distended, Non Tender and Normal Bowel Sounds
[2024-07-27 16:16] LABS: Glucose - Point of Care 160 mg/dl (70-99)
--- NOTE | 2024-07-27 16:29 | PTCARENOTE ---
1600 NIH scale completed. pt with inability to move any extremites and unable to feel light or pinches in any finger bilaterally. stroke alert called rapid response called. aware , Dr barahona aware. PT sent to CT Scan
--- NOTE | 2024-07-27 16:31 | W.PN.NEPH.PH ---
Today's Communication / Plan
-
cont D5W for now
Assessment/Plan
-
IMP:
Generalized weakness/fatigue likely from poor oral intake
GI bleed likely due to Eliquis
UTI
sepsis likely 2/2 above
Hypernatremia likely from dehydration
Hypokalemia
Acute kidney injury
Transaminitis
History of hypertension
DVT of left lower extremities
Hyperlipidemia
Chronic low back pain
Plan:
A/w gen weakness, FTT and noted wiley
mild OSCAR-cr up at 1.2, baseline cr 0.6-0.8, suspect prerenal with poor intake
PO intake very poor
Hypernatremia-sodium improving to 149
U osmo is low at 112 suspect may have partial DI
noted CVA on MRI could be causing ADH suppression
consider low dose DDAVP if pt wants aggressive care
cont D5w titrate as needed
BP are stable, holding Amlodipine and ACEI
abx per primary
hgb relatively stable
s/p EUS 07/25, FNA liver lesion , MRI shows pancreatic mass with mets
poor prognosis
GOC being discussed with family by primary team
d/w nursing
-
-
Date of Service: July 27, 2024
CC / HPI / ROS
-
Chief Complaint:
Hypernatremia
OSCAR
History of Present Illness:
creatinine up at 1.2
BP stable
sodium at 149 still
stroke alert 07/26, MRI confirms
Review of Systems:
non oliguric with harrell
poor po intake
c/o pain
Labs
-
Labs:
WBC 12.4 10^3/uL (4.8-10.8) H 07/27/24 05:02
RBC 3.55 10^6/uL (4.20-5.40) L 07/27/24 05:02
Hgb 11.4 g/dL (12.0-16.0) L 07/27/24 05:02
Hct 34.4 % (37.0-47.0) L 07/27/24 05:02
Plt Count 154 10^3/uL (130-400) D 07/27/24 05:02
Sodium 149 mmol/L (135-145) H 07/27/24 05:02
Potassium 3.5 mmol/L (3.5-5.1) 07/27/24 05:02
Chloride 119 mmol/L (98-107) H 07/27/24 05:02
Carbon Dioxide 24 mmol/L (22-30) 07/27/24 05:02
BUN 17 mg/dl (7-17) 07/27/24 05:02
Creatinine 1.2 mg/dL (0.6-1.0) H 07/27/24 05:02
eGFR 46.62 07/27/24 05:02
Glucose 157 mg/dl (70-99) H 07/27/24 05:02
Calcium 9.5 mg/dl (8.4-10.2) 07/27/24 05:02
Albumin 2.7 g/dl (3.5-5.0) L 07/27/24 05:02
Physical Exam
-
Vital Signs:
Vital Signs
Temp Pulse Resp BP Pulse Ox
98 F 87 18 118/64 98
07/27/24 08:17 07/27/24 08:17 07/27/24 08:17 07/27/24 08:17 07/27/24 08:17
Cardiovascular:: Regular rate and rhythm
Respiratory:: Bilateral: CTA (decreased)
Lung Excursion:: Normal
Abdomen:: Nontender and Soft
Extremity Edema:: +1: Bilateral: (trace)
Harrell Catheter: Yes
[2024-07-27 16:38] VITALS: BP 152/55
[2024-07-27 16:49] LABS: Hematocrit 36.4 % (37.0-47.0); Hemoglobin 12.1 g/dL (12.0-16.0); Mean Corp Hgb Conc. 33.2 g/dL (33.0-37.0); Mean Corpuscular Hgb 31.5 pg (27.0-31.0); Mean Corpuscular Volume 94.8 fL (81.0-99.0); Mean Platelet Volume 10.8 fL (7.4-10.4); Platelet Count 143 10^3/uL (130-400); Red Blood Cell Count 3.84 10^6/uL (4.20-5.40); Red Cell Dist. Width 18.1 % (11.5-14.5); White Blood Cell Count 11.6 10^3/uL (4.8-10.8)
[2024-07-27 16:56] LABS: Blood Urea Nitrogen 18 mg/dl (7-17); Calcium 9.7 mg/dl (8.4-10.2); Carbon Dioxide 26 mmol/L (22-30); Chloride 118 mmol/L (98-107); Estimated Creatinine Clearance 39 ml/min; Glucose 163 mg/dl (70-99); Potassium 3.5 mmol/L (3.5-5.1); Sodium 150 mmol/L (135-145); eGFR 51.75
[2024-07-27 17:27] LABS: Troponin I 0.125 ng/ml
[2024-07-27 19:00] VITALS: BP 141/76
[2024-07-27 23:08] VITALS: BP 136/83
[2024-07-28] MEDS: MAXIPIME 2000 MG IV ×2 (01:16→14:37)
[2024-07-28] MEDS: STERILE WATER FOR INJECTION 10 ML IV ×2 (01:16→14:37)
[2024-07-28 03:45] VITALS: BP 127/78
[2024-07-28] MEDS: D5W 1000 IV ×2 (03:49→12:13)
[2024-07-28 06:00] VITALS: BMI 23.3
[2024-07-28 06:04] LABS: % Basophils 0.2 % (0-2); % Lymphocytes 11.4 % (20.5-51.1); % Monocytes 9.4 % (1.7-9.3); Absolute Eosinophils 0.1 10^3/uL (0-0.7); Absolute Immature Granulocytes 0.1 10^3/uL (0-0.05); Absolute Lymphocytes 1.4 10^3/uL (1.2-3.4); Absolute Monocytes 1.2 10^3/uL (0.1-0.6); Absolute Neutrophils 9.5 10^3/uL (1.4-6.5); Hematocrit 36.2 % (37.0-47.0); Hemoglobin 11.3 g/dL (12.0-16.0); Mean Corp Hgb Conc. 31.2 g/dL (33.0-37.0); Mean Corpuscular Volume 99.2 fL (81.0-99.0); Mean Platelet Volume 11.1 fL (7.4-10.4); Nucleated Red Blood Cells % 0.2 %; Platelet Count 124 10^3/uL (130-400); Red Blood Cell Count 3.65 10^6/uL (4.20-5.40); Red Cell Dist. Width 18.1 % (11.5-14.5); White Blood Cell Count 12.3 10^3/uL (4.8-10.8)
[2024-07-28 06:37] LABS: ALT (SGPT) 31 U/L (0-35); AST (SGOT) 53 U/L (14-36); Albumin 2.6 g/dl (3.5-5.0); Alkaline Phosphatase 417 U/L (38-126); Blood Urea Nitrogen 16 mg/dl (7-17); Calcium 9.7 mg/dl (8.4-10.2); Carbon Dioxide 23 mmol/L (22-30); Chloride 117 mmol/L (98-107); Estimated Creatinine Clearance 42 ml/min; Glucose 153 mg/dl (70-99); Potassium 3.2 mmol/L (3.5-5.1); Sodium 147 mmol/L (135-145); Total Bilirubin 0.9 mg/dl (0.2-1.3); Total Protein 5.3 g/dl (6.3-8.2); eGFR 58.02
[2024-07-28 07:15] VITALS: BP 127/58
--- NOTE | 2024-07-28 08:23 | W.PN.GI.CBS2 ---
Today's Communication / Plan
-
If develops any signs of cholangitis or pruritus or elevated bilirubin as then follow-up at [facility] for palliative stenting as outpatient but overall given her acute CVA with metastatic pancreatic CA and acute DVT prognosis is grim and patient's family
is considering hospice
Assessment / Plan
-
1. Pancreatic mass with multiple liver lesions noted most likely pancreatic CA with mets to liver status post EUS with FNA of liver mets ERCP was unable to be completed because of severe duodenal stenosis. initial plan was to refer to [facility] for
biliary stent in the future via EUS guided choledochoduodenostomy. But given that she also now has acute infarcts on MRI brain thought to be embolic in origin overall prognosis may be poor discussed with Dr. Maravilla. noted oncology input also. CEA
elevated, CA 19-9- P. Noted input from oncology also given poor performance status with acute CVA may not be a candidate moving forward for palliative chemotherapy unless she improves from her stroke. Per family request placed a call to
[facility] and spoke to him since her bilirubin is normal with no signs of cholangitis or pruritus no urgent need for biliary stenting. Patient's family to discuss about hospice today.
2. DVT was on heparin currently on hold, no overt GIB, monitor HB (stable )
Will s/o and will be available as needed
Subjective
Subjective
Date of Service: July 28, 2024
Patient remains afebrile drowsy but arousable
LFTs are stable
Objective
Data Reviewed
Laboratory Data:
Laboratory Results
07/28/24 05:43
07/28/24 05:43
Laboratory Results
PT Cancelled 07/27/24 Unknown
INR Cancelled 07/27/24 Unknown
APTT Cancelled 07/27/24 Unknown
Magnesium 2.3 mg/dl (1.6-2.3) 07/21/24 14:54
Total Bilirubin 0.9 mg/dl (0.2-1.3) 07/28/24 05:43
AST 53 U/L (14-36) H 07/28/24 05:43
ALT 31 U/L (0-35) 07/28/24 05:43
Alkaline Phosphatase 417 U/L (38-126) H 07/28/24 05:43
Lipase 287 U/L (23-300) 07/27/24 02:08
Vital Signs and I&O:
Vital Signs
Temp Pulse Resp BP Pulse Ox
99.3 F 103 19 127/58 97
07/28/24 07:15 07/28/24 07:15 07/28/24 07:15 07/28/24 07:15 07/28/24 07:15
I&O
07/27/24 07/28/24 07/29/24
06:59 06:59 06:59
Output Total 2500 / 2500 2200 / 2200
Balance -2500 / -2500 -2200 / -2200
Physical Exam
Physical Exam
Cardiology: Normal Sinus Rhythm
Pulmonary: Clear
GI: Soft, Non Distended, Non Tender and Normal Bowel Sounds
[2024-07-28] MEDS: PROTONIX IV 40 MG IV (08:57)
[2024-07-28] MEDS: NSS (PRESERVATIVE FREE) 10 ML IV (08:57)
[2024-07-28] MEDS: LIDOCAINE 4% PATCH 1 PATCH TOPICAL (08:58)
[2024-07-28] MEDS: MORPHINE SULFATE 1 MG IV ×3 (08:59→19:54)
[2024-07-28] MEDS: NORVASC PO (09:16)
[2024-07-28] MEDS: VISBIOME PO (09:16)
--- NOTE | 2024-07-28 10:46 | W.PN.NEPH.PH ---
Today's Communication / Plan
-
Maintain hypotonic IV fluids for now
May eventually implement DDAVP if aggressive care to be warranted
Assessment/Plan
-
IMP:
Generalized weakness/fatigue likely from poor oral intake
GI bleed likely due to Eliquis
UTI
sepsis likely 2/2 above
Hypernatremia likely from dehydration
Hypokalemia
Acute kidney injury
Transaminitis
History of hypertension
DVT of left lower extremities
Hyperlipidemia
Chronic low back pain
Plan:
A/w gen weakness, FTT and noted wiley
replete K
mild OSCAR-cr down 1.0, baseline cr 0.6-0.8, suspect prerenal with poor intake
PO intake very poor
Hypernatremia-sodium improving to 147
U osmo is low at 112 suspect may have partial DI
noted CVA on MRI could be causing ADH suppression
consider low dose DDAVP if pt wants aggressive care
cont D5w titrate as needed for now
BP are stable, holding Amlodipine and ACEI
abx per primary
hgb relatively stable
s/p EUS 07/25, FNA liver lesion , MRI shows pancreatic mass with mets
poor prognosis
GOC being discussed with family by primary team
d/w nursing
-
-
Date of Service: July 28, 2024
CC / HPI / ROS
-
Chief Complaint:
Hypernatremia
OSCAR
History of Present Illness:
creatinine up at 1.0
BP stable
sodium at 147 still
stroke alert 07/26, MRI confirms
Review of Systems:
non oliguric with harrell ~2200cc
poor po intake
c/o pain
Labs
-
Labs:
WBC 12.3 10^3/uL (4.8-10.8) H 07/28/24 05:43
RBC 3.65 10^6/uL (4.20-5.40) L 07/28/24 05:43
Hgb 11.3 g/dL (12.0-16.0) L 07/28/24 05:43
Hct 36.2 % (37.0-47.0) L 07/28/24 05:43
Plt Count 124 10^3/uL (130-400) L 07/28/24 05:43
Sodium 147 mmol/L (135-145) H 07/28/24 05:43
Potassium 3.2 mmol/L (3.5-5.1) L 07/28/24 05:43
Chloride 117 mmol/L (98-107) H 07/28/24 05:43
Carbon Dioxide 23 mmol/L (22-30) 07/28/24 05:43
BUN 16 mg/dl (7-17) 07/28/24 05:43
Creatinine 1.0 mg/dL (0.6-1.0) 07/28/24 05:43
eGFR 58.02 07/28/24 05:43
Glucose 153 mg/dl (70-99) H 07/28/24 05:43
Calcium 9.7 mg/dl (8.4-10.2) 07/28/24 05:43
Albumin 2.6 g/dl (3.5-5.0) L 07/28/24 05:43
Physical Exam
-
Vital Signs:
Vital Signs
Temp Pulse Resp BP Pulse Ox
99.3 F 103 19 127/58 97
07/28/24 07:15 07/28/24 07:15 07/28/24 07:15 07/28/24 07:15 07/28/24 07:15
Cardiovascular:: Regular rate and rhythm
Respiratory:: Bilateral: CTA (decreased)
Lung Excursion:: Normal
Abdomen:: Nontender and Soft
Extremity Edema:: +1: Bilateral: (trace)
Harrell Catheter: Yes
[2024-07-28 11:03] VITALS: BP 111/64
--- NOTE | 2024-07-28 11:35 | W.PN.HOSP.TC ---
Today's Communication/Plan
-
monitor vitals
see plan
Spoke with son 07/28; GI did made a call to [facility] and there is no urgent need for palliative stent. Family will be speaking amongst himself regarding CODE STATUS and hospice today.
monitor sodium for now
hep if family wants full care
harrell for now
Assessment / Plan
Assessment / Plan
General: Well Developed, Well Nourished and No Apparent Distress
HEENT: NormoCephalic, Moist mucous membranes and Atraumatic
Respiratory: Clear
Cardiac: S1/S2 and Regular Rhythm; No Murmur or Rub
GI: Soft, Non Tender, Non Distended and Normal Bowel Sounds
Musculoskeletal: No Edema
Neuro: facial droop
Psych: Calm
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
agree with evaluation given weight loss and early satiety
Monitor LFTs
denies abdominal pain
MRI abdomen with pancreatic mass with innumerable liver metastases. Status post EUS. Acquired duodenal stenosis. Per gastroenterology a mass was identified in the pancreatic head. There was also metastasis to the liver. Few metastatic lesions
were found in the left lobe of the liver with fine-needle aspiration was performed. ERCP was performed however patient had duodenal stenosis. Per gastroenterology patient will need biliary stent in the future via EUS guided choledocho duodenostomy
which can be done outpatient. Per GI these procedures are palliative. Gi will discuss with patient's family
Overall prognosis appears guarded, me and GI discussed with family. Oncology evaluated as well and discussed with family. Prognosis guarded. Spoke with daughter again 07/27. Family wants to consider all the options and then will decide. Daughter
did show interest in speaking with hospice. outlet manager consulted for hospice. CODE STATUS was also discussed and patient family wants to be remain a full code currently however will speak to other family members in extent today.
Spoke with son 9; GI did made a call to [facility] and there is no urgent need for palliative stent. Family will be speaking amongst himself regarding CODE STATUS and hospice today.
Acute/subacute CVA
stroke alert 07/26
CT without any hemorrhage. Neurology following
MRI with acute CVA
neurology following; wanted to hold off on IV hep; now can restart without boluses; restart if family wants full care
neurochecks
speech evaluation
UTI
sepsis likely 2/2 above was present on admission; no bx checked on admission
follow urine cx growing Pseudomonas, switched antibiotics to cefepime
bladder scan
questionable GI bleed
-Heme positive stool; no profuse bleeding so far
-Trend hemoglobin, transfuse if hemoglobin less than 7
-Currently off AC due to recent stroke
GI following
PPI
Generalized weakness/fatigue likely from poor oral intake
-PT/OT following
# Hypernatremia
# Hypokalemia likely from oral poor intake
# Acute kidney injury likely from dehydration
Replete potassium, increase D5 water. Nephrology following. can do DDAVP if family wants full care
Urine awesome low, could be diabetes insipidus. Will need accurate I's and O's. Now with Harrell catheter.
# History of hypertension
restart amlodipine
hold aceinh
# DVT of left lower extremities
-Hold Eliquis for now; discussed with GI. Started on heparin
yet to see hematology outpatient
# Hyperlipidemia
-Colestipol continued
# Chronic low back pain
fibromyalgia
-Tylenol prn for pain
morphine prn
follows up with rheumatology outpatient
#DVT prophylaxis
-scd,heparin
#CODE status
-full code
Overall prognosis appears guarded, me and GI discussed with family. Oncology evaluated as well and discussed with family. Prognosis guarded. Spoke with daughter again 07/27. Family wants to consider all the options and then will decide. Daughter
did show interest in speaking with hospice. outlet manager consulted for hospice. CODE STATUS was also discussed and patient family wants to be remain a full code currently however will speak to other family members in extent today.
Spoke with son 07/28; GI did made a call to [facility] and there is no urgent need for palliative stent. Family will be speaking amongst himself regarding CODE STATUS and hospice today.
I spent a total of 52 minutes with the patient or on the floor. More than 50% of this time involved counseling and coordination of care.
Anticipated Discharge: 24 - 48 hours
Subjective/Interval History
-
Date of Service: July 28, 2024
lethargic
Objective Data
-
Labs:
Laboratory Results
07/28/24
05:43
WBC 12.3 H
Hgb 11.3 L
Hct 36.2 L
Plt Count 124 L
Sodium 147 H
Potassium 3.2 L
Chloride 117 H
Carbon Dioxide 23
BUN 16
Creatinine 1.0
Glucose 153 H
Calcium 9.7
Total Bilirubin 0.9
AST 53 H
ALT 31
Alkaline Phosphatase 417 H
Vital Signs:
Vital Signs
Temp Pulse Resp BP Pulse Ox
98.9 F 98 17 111/64 97
07/28/24 11:03 07/28/24 11:03 07/28/24 11:03 07/28/24 11:03 07/28/24 11:03
I&O
07/27/24 07/28/24 07/29/24
06:59 06:59 06:59
Output Total 2500 / 2500 2200 / 2200
Balance -2500 / -2500 -2200 / -2200
--- NOTE | 2024-07-28 13:18 | HOSPNOTE ---
Addendum entered by Chetna Russell RN 07/28/24 16:51:
Family called Sarah back and stated they are all in agreement with hospice services. Code status changed to a DNR. Comfort measures initiated tonight and patient will be admitted inpatient hospice tomorrow morning.
Original Note:
Met with family to discuss hospice and goals of care. Patient is listed as a full code however did discuss with family to make a decision about code status today. Daughter of patient is on her way and will discuss hospice and the philosophy with her
and then the family will make decisions. More information to follow.
--- NOTE | 2024-07-28 14:34 | CHAP ---
request received, and at Mr. Salinas's request we will relay it to the on-call enrollment services vice president tomorrow (Sunday).
--- NOTE | 2024-07-28 15:02 | CM ---
CM reviewed chart and pt with Hospice/Sarah
Plan for family discussion today to discuss GOC and hospice
Hospice referral outcome pending
CM will remain available for dc planning
Discharge Disposition- TBD
[2024-07-28 15:11] VITALS: BP 133/63
--- NOTE | 2024-07-28 16:41 | PTCARENOTE ---
family wants comfort measures now. Dr. Maravilla transferring patient to same day surgery center. [facility]'s d/c'd. patient receiving Morphine PRN with good relief for c/o b/l hip pain. She was made NPO this am as nursing measure due to her not able to swallow am oral
pills and coughing with sips of water. vss, family at bedside, will continue to monitor.
--- NOTE | 2024-07-28 16:41 | W.PN.UPDATE ---
Update Note
Progress Note Update
Spoke with Sarah from hospice and over the phone. Family decided for comfort measures. Will discontinue fluids, labs and other medications. Continue with morphine and Ativan as needed. Transfer to [facility]. Family will be meeting with
hospice again tomorrow and plan is for inpatient hospice. CODE STATUS changed to DNR
[2024-07-28 23:21] VITALS: BP 145/78
[2024-07-29] MEDS: MORPHINE SULFATE 1 MG IV ×2 (07:25→11:32)
[2024-07-29 07:46] VITALS: BP 132/65
[2024-07-29] MEDS: LIDOCAINE 4% PATCH 1 PATCH TOPICAL (08:46)
--- NOTE | 2024-07-29 09:55 | HOSPNOTE ---
Patient will be inpatient hospice. Attending and CM updated. Admissions was called to get patient a bed on [address]. Consents are signed. Will continue to follow and support.
--- NOTE | 2024-07-29 10:11 | CM ---
CM reviewed pt with Sarah/[facility]
Plan for GIP sign on today
CM will remain available for dc planning
Discharge Disposition- GIP
--- NOTE | 2024-07-29 11:44 | W.PN.HOSP.TC ---
Today's Communication/Plan
-
monitor vitals
see plan
dc today to inpatient hospice
Time of discharge 38 minutes
Assessment / Plan
Assessment / Plan
General: Well Developed, lethargic
HEENT: NormoCephalic, Moist mucous membranes and Atraumatic
Respiratory: Clear
Cardiac: S1/S2 and Regular Rhythm; No Murmur or Rub
GI: Soft, Non Tender, Non Distended and Normal Bowel Sounds
Musculoskeletal: No Edema
Neuro: facial droop
Psych: Calm
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
agree with evaluation given weight loss and early satiety
Monitor LFTs
denies abdominal pain
MRI abdomen with pancreatic mass with innumerable liver metastases. Status post EUS. Acquired duodenal stenosis. Per gastroenterology a mass was identified in the pancreatic head. There was also metastasis to the liver. Few metastatic lesions
were found in the left lobe of the liver with fine-needle aspiration was performed. ERCP was performed however patient had duodenal stenosis. Per gastroenterology patient will need biliary stent in the future via EUS guided choledocho duodenostomy
which can be done outpatient. Per GI these procedures are palliative. Gi will discuss with patient's family
Overall prognosis appears guarded, me and GI discussed with family. Oncology evaluated as well and discussed with family. Prognosis guarded. Spoke with daughter again 07/27. Family wants to consider all the options and then will decide. Daughter
did show interest in speaking with hospice. clinical statistics manager consulted for hospice. CODE STATUS was also discussed and patient family wants to be remain a full code currently however will speak to other family members in extent today.
Spoke with son 07/28; GI did made a call to [place] and there is no urgent need for palliative stent. Patient now will be admitted to inpatient hospice
Acute/subacute CVA
stroke alert 07/26
CT without any hemorrhage. Neurology following
MRI with acute CVA
Family opted for hospice. Plan for discharge today with inpatient hospice
UTI
questionable GI bleed
-Heme positive stool; no profuse bleeding so far
Generalized weakness/fatigue likely from poor oral intake
-PT/OT following
# Hypernatremia
# Hypokalemia likely from oral poor intake
# Acute kidney injury likely from dehydration
maintain harrell for comfort
# History of hypertension
# DVT of left lower extremities
# Hyperlipidemia
# Chronic low back pain
fibromyalgia
#DVT prophylaxis
#CODE status
DNR
Overall prognosis appears guarded, me and GI discussed with family. Oncology evaluated as well and discussed with family. Prognosis guarded. Spoke with daughter again 07/27. Family wants to consider all the options and then will decide. Daughter
did show interest in speaking with hospice. clinical statistics manager consulted for hospice. CODE STATUS was also discussed and patient family wants to be remain a full code currently however will speak to other family members in extent today.
Spoke with son 07/28; GI did made a call to [place] and there is no urgent need for palliative stent. Family will be speaking amongst himself regarding CODE STATUS and hospice today.
07/29: Family opted for hospice. Plan for discharge today with inpatient hospice
Anticipated Discharge: Today
Subjective/Interval History
-
Date of Service: July 29, 2024
lethargic
Objective Data
-
Vital Signs:
Vital Signs
Temp Pulse Resp BP Pulse Ox
99.0 F 108 15 132/65 95
07/29/24 07:46 07/29/24 07:46 07/29/24 07:46 07/29/24 07:46 07/29/24 07:46
I&O
07/28/24 07/29/24 07/30/24
06:59 06:59 06:59
Intake Total 1400 / 1400
Output Total 2200 / 2200 1950 / 1950
Balance -2200 / -2200 -550 / -550
--- NOTE | 2024-07-29 11:48 | W.DCSUMMARY ---
Discharge Summary
Discharge Data
Date of Admission: 07/21/24
Date of Discharge: 07/29/24
-
Pending Results: No
Hospital Course
79-year-old female with past medical history of hyponatremia, hypertension, DVT,chronic low back pain, fibromyalgia Came to the hospital with severe dehydration, weight loss and early satiety. Patient also had elevated LFTs so was seen by GI for
evaluation. MRI was also done which showed pancreatic mass with innumerable liver metastases. Patient then underwent EUS along with ERCP which showed pancreatic head mass however ERCP was unable to be performed due to duodenal stenosis.
Gastroenterology recommended patient to get biliary stent in the future via EUS guided choledochoduodenostomy. While patient was in the hospital she developed acute stroke. She was also seen by oncology who reported that her prognosis is very poor
and now given acute stroke she did not appear stable for any further treatments. For her hypernatremia she was seen by nephrology and was started on D5W. However there was suspicion of diabetes insipidus. Over time patient symptoms continue to
get worse and family opted for hospice. Patient was then discharged to inpatient hospice.
Discharge Plan
-
Patient Disposition: Hospice - Inpatient DH
Discharge Orders:
Discharge Patient (As Directed); Ordered 07/29/24
Ordered By: Buck Maravilla
Discharge Date and Time
Discharge Date/Time: 07/29/24 12:05
Print Language: CHINESE
[2024-07-29 15:52] LABS: CA 19-9 105799 U/mL (<=35)
== END 2024-07-29 12:05 | disposition hospice, inpatient (51) | DRG 871 ==
LOC: 3 WEST ACU 22:33
PROVIDERS: Emergency Medicine; Internal Medicine Gastroenterology; Nurse Practitioner; Nurse Practitioner Family; Nurse Practitioner Gerontology; Registered Nurse; Specialist; ADMITTING PHYSICIAN Hospitalist; ATTENDING PHYSICIAN Internal Medicine; CONSULT PHYSICIAN Internal Medicine; CONSULT PHYSICIAN Internal Medicine Gastroenterology; CONSULT PHYSICIAN Psychiatry & Neurology Neurology; EMERGENCY PHYSICIAN Student in an Organized Health Care Education/Training Program; FAMILY PHYSICIAN Internal Medicine; OTHER PHYSICIAN Internal Medicine Hematology & Oncology
PROC: 0D798ZZ Dilation of Duodenum, Via Natural or Artificial Opening Endoscopic (ICD-10-PCS; 2024-07-25)
PROC: 0F924ZX Drainage of Left Lobe Liver, Percutaneous Endoscopic Approach, Diagnostic (ICD-10-PCS; 2024-07-25)
PROC: 0FJB8ZZ Inspection of Hepatobiliary Duct, Via Natural or Artificial Opening Endoscopic (ICD-10-PCS; 2024-07-25)
DX: A41.52 Sepsis due to Pseudomonas (principal); G92.8 Other toxic encephalopathy; I63.9 Cerebral infarction, unspecified; C25.9 Malignant neoplasm of pancreas, unspecified; N17.9 Acute kidney failure, unspecified; D68.32 Hemorrhagic disorder due to extrinsic circulating anticoagulants; K92.1 Melena; I82.402 Acute embolism and thrombosis of unspecified deep veins of left lower extremity; K31.5 Obstruction of duodenum; C78.7 Secondary malignant neoplasm of liver and intrahepatic bile duct; N39.0 Urinary tract infection, site not specified; R47.01 Aphasia; E23.2 Diabetes insipidus; M79.7 Fibromyalgia; I10 Essential (primary) hypertension; G47.33 Obstructive sleep apnea (adult) (pediatric); E86.0 Dehydration; M81.0 Age-related osteoporosis without current pathological fracture; K76.0 Fatty (change of) liver, not elsewhere classified; G89.29 Other chronic pain; M54.50 Low back pain, unspecified; E78.00 Pure hypercholesterolemia, unspecified; K76.82 Hepatic encephalopathy; R62.7 Adult failure to thrive; K86.89 Other specified diseases of pancreas; K83.8 Other specified diseases of biliary tract; Z53.9 Procedure and treatment not carried out, unspecified reason; Z66 Do not resuscitate; Z79.01 Long term (current) use of anticoagulants; Z88.5 Allergy status to narcotic agent; Z11.52 Encounter for screening for COVID-19; Z87.440 Personal history of urinary (tract) infections; Z90.49 Acquired absence of other specified parts of digestive tract; Z80.3 Family history of malignant neoplasm of breast
CPT/HCPCS: 88172; 88173; 88305; 70450; 70496; 70498; 70553; 74183; 80048; 80053; 80061; 81003; 81015; 82248; 82378; 82607; 82728; 82746; 82962; 83540; 83550; 83690; 83735; 83935; 84295; 84466; 84484; 85014; 85018; 85025; 85027; 85730; 86301; 86704; 86706; 86708; 86803; 87040; 87077; 87086; 87186; 87340; 87811; 88341; 88342; 92610; 93005; 96361; 96365; 96366; 97116; 97163; 97167; 97530; 97535; 99285; A9575; C1726; J7030; Q9967

== ENCOUNTER 2024-07-29 12:06 | Inpatient (IN) | payer OTHER, SELFPAY ==
--- NOTE | 2024-07-29 12:23 | ADM.HSP ---
Admission - Hospice
History of Present Illness
Inpatient hospice
Reason for Hospice Admission
79-year-old female with past medical history of hyponatremia, hypertension, DVT,chronic low back pain, fibromyalgia Came to the hospital with severe dehydration, weight loss and early satiety. Patient also had elevated LFTs so was seen by GI for
evaluation. MRI was also done which showed pancreatic mass with innumerable liver metastases. Patient then underwent EUS along with ERCP which showed pancreatic head mass however ERCP was unable to be performed due to duodenal stenosis.
Gastroenterology recommended patient to get biliary stent in the future via EUS guided choledochoduodenostomy. While patient was in the hospital she developed acute stroke. She was also seen by oncology who reported that her prognosis is very poor
and now given acute stroke she did not appear stable for any further treatments. For her hypernatremia she was seen by nephrology and was started on D5W. However there was suspicion of diabetes insipidus. Over time patient symptoms continue to
get worse and family opted for hospice. Patient was then discharged to inpatient hospice.
Review of Systems
Unable to obtain full review of systems at this time due to: Acuity
Physical Exam
General: Well Developed and Other (lethargic)
Respiratory: Clear to Auscultation
Cardiology: Regular Rhythm and S1/S2
Breast: Deferred by me
GI: Soft and Nontender
Genito-Urinary: Harrell
Musculoskeletal: No Edema
Neuro: Sedated
Psych: Calm
Assessment/Medication Plan
Generic Name Dose Route Start Last Admin
Trade Name Freq PRN Reason Stop Dose Admin
Glycopyrrolate 0.2 mg 07/29/24 12:20
Glycopyrrolate 0.2 Mg/Ml Vial IV 08/26/24 12:19
Q4HPRN PRN
excessive secretions
Hyoscyamine Sulfate 0.125 mg 07/29/24 12:20
Hyoscyamine Sulfate 0.125 Mg/Ml In Oral Syringe SL 08/26/24 12:19
Q4HPRN PRN
excessive secretions
Lorazepam 1 mg 07/29/24 12:20
Lorazepam 2 Mg/Ml Vial IV 08/26/24 12:19
Q2HPRN PRN
anxiety
Protocol
Prochlorperazine Edisylate 5 mg 07/29/24 12:20
Prochlorperazine 10 Mg/2 Ml Vial IV 08/26/24 12:19
Q6HPRN PRN
nausea/vomiting
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
agree with evaluation given weight loss and early satiety
Monitor LFTs
denies abdominal pain
MRI abdomen with pancreatic mass with innumerable liver metastases. Status post EUS. Acquired duodenal stenosis. Per gastroenterology a mass was identified in the pancreatic head. There was also metastasis to the liver. Few metastatic lesions
were found in the left lobe of the liver with fine-needle aspiration was performed. ERCP was performed however patient had duodenal stenosis. Per gastroenterology patient will need biliary stent in the future via EUS guided choledocho duodenostomy
which can be done outpatient. Per GI these procedures are palliative. Gi will discuss with patient's family
Overall prognosis appears guarded, me and GI discussed with family. Oncology evaluated as well and discussed with family. Prognosis guarded. Spoke with daughter again 07/27. Family wants to consider all the options and then will decide. Daughter
did show interest in speaking with hospice. special education case manager consulted for hospice. CODE STATUS was also discussed and patient family wants to be remain a full code currently however will speak to other family members in extent today.
Spoke with son 07/28; GI did made a call to [place] and there is no urgent need for palliative stent. Patient now will be admitted to inpatient hospice
Acute/subacute CVA
stroke alert 07/26
CT without any hemorrhage. Neurology following
MRI with acute CVA
Family opted for hospice. Plan for discharge today with inpatient hospice
start Morphine pushes will transition to morphine drip if needed
Ativan as needed
Glycopyrrolate
UTI
questionable GI bleed
-Heme positive stool; no profuse bleeding so far
Generalized weakness/fatigue likely from poor oral intake
-PT/OT following
# Hypernatremia
# Hypokalemia likely from oral poor intake
# Acute kidney injury likely from dehydration
maintain harrell for comfort
# History of hypertension
# DVT of left lower extremities
# Hyperlipidemia
# Chronic low back pain
fibromyalgia
#DVT prophylaxis
#CODE status
DNR
--- NOTE | 2024-07-29 14:45 | PTCARENOTE ---
1445 Report given to Patrice. TESSIE. Pt is been transferred to room 2127 for in patient hospice.
[2024-07-29] MEDS: MORPHINE SULFATE 1 MG IV ×3 (15:09→23:39)
--- NOTE | 2024-07-29 15:16 | HOSPNOTE ---
Patient will be admitted inpatient hospice. All orders are in and patient will be transferred to [facility] and be seen daily by hospice nurse. Patient will remain inpatient hospice for pain management.
--- NOTE | 2024-07-29 15:27 | CHAP ---
Mrs. Salinas received Sacrament of the Sick/Last Rites on 07/29/24 from [facility], as requested by family. Will follow as able.
[2024-07-29] MEDS: ATIVAN 1 MG IV (15:47)
--- NOTE | 2024-07-29 16:02 | PTCARENOTE ---
pt received from [facility], transferred to bed. pt ans family oriented to room, routine and hospice specific goals. pt is arousable and c/o pain, given ativan 1mg as ordered. hospice nurse present. after ativan pt appears comfortable. will monitor
[2024-07-29 16:04] VITALS: BP 137/80
[2024-07-29 19:34] VITALS: BP 155/81
[2024-07-30 07:05] VITALS: BP 134/80
--- NOTE | 2024-07-30 10:32 | W.PN.HOSP.TC ---
Today's Communication/Plan
-
Monitor vital signs
see plan
Morphine as needed
Ativan
Continue with inpatient hospice
Assessment / Plan
Assessment / Plan
General: Comfortable
Respiratory: appropriate chest rise
Musculoskeletal: No Edema
Neuro: Sedated
Psych: Calm
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
agree with evaluation given weight loss and early satiety
Monitor LFTs
denies abdominal pain
MRI abdomen with pancreatic mass with innumerable liver metastases. Status post EUS. Acquired duodenal stenosis. Per gastroenterology a mass was identified in the pancreatic head. There was also metastasis to the liver. Few metastatic lesions
were found in the left lobe of the liver with fine-needle aspiration was performed. ERCP was performed however patient had duodenal stenosis. Per gastroenterology patient will need biliary stent in the future via EUS guided choledocho duodenostomy
which can be done outpatient. Per GI these procedures are palliative. Gi will discuss with patient's family
Overall prognosis appears guarded, me and GI discussed with family. Oncology evaluated as well and discussed with family. Prognosis guarded. Spoke with daughter again 07/27. Family wants to consider all the options and then will decide. Daughter
did show interest in speaking with hospice. casino assistant manager consulted for hospice. CODE STATUS was also discussed and patient family wants to be remain a full code currently however will speak to other family members in extent today.
Spoke with son 07/28; GI did made a call to [place] and there is no urgent need for palliative stent. Patient now will be admitted to inpatient hospice
Acute/subacute CVA
stroke alert 07/26
CT without any hemorrhage. Neurology following
MRI with acute CVA
Family opted for hospice. now inpatient hospice
start Morphine pushes will transition to morphine drip if needed
Ativan as needed
Glycopyrrolate
UTI
questionable GI bleed
Generalized weakness/fatigue likely from poor oral intake
-PT/OT following
# Hypernatremia
# Hypokalemia
# Acute kidney injury
maintain harrell for comfort
# History of hypertension
# DVT of left lower extremities
# Hyperlipidemia
# Chronic low back pain
fibromyalgia
#DVT prophylaxis
#CODE status
DNR
Anticipated Discharge: Within 24 hours
Subjective/Interval History
-
Date of Service: July 30, 2024
Comfortable
Objective Data
-
Vital Signs:
Vital Signs
Temp Pulse Resp BP Pulse Ox
99.1 F 112 16 134/80 96
07/30/24 07:05 07/30/24 07:05 07/30/24 07:05 07/30/24 07:05 07/30/24 08:22
I&O
07/29/24 07/30/24 07/31/24
06:59 06:59 06:59
Output Total 550 / 550
Balance -550 / -550
[2024-07-30] MEDS: MORPHINE SULFATE 1 MG IV ×4 (11:43→23:09)
[2024-07-30] MEDS: ATIVAN 1 MG IV ×2 (11:50→16:54)
[2024-07-30] MEDS: NSS (PRESERVATIVE FREE) 0.5 ML IV ×2 (11:50→16:54)
--- NOTE | 2024-07-30 12:16 | CM ---
Patient on hospice
Family at bedside.
CM available for support.
PLAN: hospice
--- NOTE | 2024-07-30 13:12 | HOSPNOTE ---
Emotional support provided to family, patient is lethargic does have moderate pain with any positioning and turning. Educated to please medicate prior to any care. Patient requires IV morphine and ativan for symptom management. Patient will be seen
daily by hospice nurse.
--- NOTE | 2024-07-30 15:17 | HOSPNOTE ---
Sindy was sleeping comfortably, non-responsive. She did not appear to be in pain. Daughter, Nathalie, was present, along with a large extended family gathering, including a 13 year old grandson. Nathalie shared background, saying that her mother has
received Sacrament of the Sick, and that she requested rosary beads for all the family. They prayed together. Nathalie believes Sindy is 'mostly' peaceful and accepting, and said the geodesist visit was helpful in that regard. The family seems to be
coping well. [employer] Worker provided emotional and spiritual support through presence, listening, dialogue, expressions of comfort, and private prayer. Will continue support through weekly visits, and will also check in on the weekend.
[2024-07-30 19:15] VITALS: BP 119/71
--- NOTE | 2024-07-31 04:39 | DOWNTIME ---
There was a [employer] Downtime on 07/31/2024 from 0200 to 07/31/2024 at 0325 . Downtime documentation of patient's care, including medication administrations, has been reconciled in the electronic record per guidelines. Refer to the
patient's paper chart under the miscellaneous tab to see printed paper medication records and downtime forms.
[2024-07-31] MEDS: NSS (PRESERVATIVE FREE) 0.5 ML IV ×3 (04:55→16:31)
[2024-07-31] MEDS: MORPHINE SULFATE 1 MG IV ×6 (04:56→23:24)
[2024-07-31] MEDS: ATIVAN 1 MG IV ×3 (04:56→16:31)
[2024-07-31 07:05] VITALS: BP 117/71
--- NOTE | 2024-07-31 08:42 | W.PN.HOSP.TC ---
Today's Communication/Plan
-
continue GIP hospice
Assessment / Plan
Assessment / Plan
General: Comfortable
Respiratory: appropriate chest rise
Musculoskeletal: No Edema
Neuro: Sedated
Psych: Calm
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
agree with evaluation given weight loss and early satiety
Monitor LFTs
denies abdominal pain
MRI abdomen with pancreatic mass with innumerable liver metastases. Status post EUS. Acquired duodenal stenosis. Per gastroenterology a mass was identified in the pancreatic head. There was also metastasis to the liver. Few metastatic lesions
were found in the left lobe of the liver with fine-needle aspiration was performed. ERCP was performed however patient had duodenal stenosis. Per gastroenterology patient will need biliary stent in the future via EUS guided choledocho duodenostomy
which can be done outpatient. Per GI these procedures are palliative. Gi will discuss with patient's family
Overall prognosis appears guarded, me and GI discussed with family. Oncology evaluated as well and discussed with family. Prognosis guarded. Spoke with daughter again 07/27. Family wants to consider all the options and then will decide. Daughter
did show interest in speaking with hospice. adult family home program manager consulted for hospice. CODE STATUS was also discussed and patient family wants to be remain a full code currently however will speak to other family members in extent today.
Spoke with son 07/28; GI did made a call to [place] and there is no urgent need for palliative stent. Patient now will be admitted to inpatient hospice
Acute/subacute CVA
stroke alert 07/26
CT without any hemorrhage. Neurology following
MRI with acute CVA
Family opted for hospice. now inpatient hospice
continue Morphine pushes will transition to morphine drip if needed
Ativan as needed
Glycopyrrolate
UTI
questionable GI bleed
Generalized weakness/fatigue likely from poor oral intake
-PT/OT following
Hypernatremia
Hypokalemia
Acute kidney injury
- maintain harrell for comfort
History of hypertension
DVT of left lower extremities
Hyperlipidemia
Chronic low back pain
fibromyalgia
Anticipated Discharge: 24 - 48 hours
Subjective/Interval History
-
Date of Service: July 31, 2024
comfortable per family at bedside
Objective Data
-
Vital Signs:
Vital Signs
Temp Pulse Resp BP Pulse Ox
98.2 F 112 14 117/71 100
07/31/24 07:05 07/31/24 07:05 07/31/24 07:05 07/31/24 07:05 07/31/24 07:28
I&O
07/30/24 07/31/24 08/01/24
06:59 06:59 06:59
Intake Total 20 / 20
Output Total 550 / 550 250 / 250
Balance -550 / -550 -230 / -230
Data Reviewed
-
Total Time Spent with Patient (in minutes): 41
--- NOTE | 2024-07-31 09:52 | HOSPNOTE ---
Patient remains GIP level of care appropriate. Has received Morphine IV x 5 in last 24 hours, and Ativan IV x 2 in last 24 hours. Heriberto at bedside with 1 of 2 sons. reminiscing with various stories from their lives. Grieving
appropriately. Patient appears comfortable with above medication. Periods of apnea noted lasting 10-15 seconds while hospice nurse was present. Some mottling of knees and feet.
--- NOTE | 2024-07-31 14:26 | CM ---
Patient family at bedside.
Continues on GIP hospice
CM available for support.
PLAN: continue GIP hospice
[2024-07-31 19:00] VITALS: BP 88/51
[2024-08-01] MEDS: MORPHINE SULFATE 1 MG IV (02:30)
[2024-08-01 07:10] VITALS: BP 78/53
--- NOTE | 2024-08-01 09:15 | W.PN.DEATH ---
Pronouncement of
-
Called to see patient to pronounce.
No spontaneous heart tones or respirations noted.
Patient not responsive to verbal stimuli.
Patient is pronounced .
Time of : 08:32
Date of : 08/01/24
Cause of : acute CVA, pancreatic mass
Family Notified: Yes
--- NOTE | 2024-08-01 10:53 | CM ---
Notified by hospitalist patient this am.
== END 2024-08-01 11:18 | disposition expired | DRG 951 ==
LOC: 2 NORTH 12:06
PROVIDERS: ADMITTING PHYSICIAN Internal Medicine; ATTENDING PHYSICIAN Internal Medicine
DX: Z51.5 Encounter for palliative care (principal); I63.9 Cerebral infarction, unspecified; C25.9 Malignant neoplasm of pancreas, unspecified; C78.7 Secondary malignant neoplasm of liver and intrahepatic bile duct; N39.0 Urinary tract infection, site not specified; E87.0 Hyperosmolality and hypernatremia; N17.9 Acute kidney failure, unspecified; E87.1 Hypo-osmolality and hyponatremia; E87.6 Hypokalemia; Z66 Do not resuscitate; E78.5 Hyperlipidemia, unspecified; M79.7 Fibromyalgia